=== PATIENT | female | born 1960 | race Caucasian/White ===

== ENCOUNTER 2016-10-22 08:35 | Day surgery (SDC) | payer OTHER ==
[2016-10-22] VITALS (11 sets, daily range): BP systolic 114–158; BP diastolic 63–70; PULSE 73–88; RESP 15–18; Ht 165.1 cm; Wt 74.9 kg
[~2016-10-22] VITALS: Ht 165.1 cm; Wt 74.9 kg
[2016-10-22] MEDS: SOD CHLORIDE 0.9% 1,000 ML IV SCH ×2 (06:00→19:20)
[~2016-10-22 08:35] MED LIST: CEFAZOLIN 1 GM INJ ONE; CEFAZOLIN 2 GM/50 ML (PMX) 50 ML IVPB SCH
[2016-10-22] MEDS ORDERED: PROPOFOL 0 ML ONE (12:09)
[2016-10-22] MEDS ORDERED: KETOROLAC 30 MG INJ ONE (12:10)
[2016-10-22] MEDS ORDERED: FENTAnyl 50 MCG/ML VIAL ONE ×3 (12:10→15:38)
[2016-10-22] MEDS ORDERED: MIDAZOLAM 1 MG/ML 2 ML INJ ONE (12:10)
[2016-10-22] MEDS ORDERED: ONDANSETRON 4 MG INJ ONE ×2 (12:10→16:00)
[2016-10-22 12:47] LABS: BASOPHIL # 0.1 10^3/ul (0.0-0.1); BASOPHILS % 0.7 % (0.0-2.0); EOSINOPHILS # 0.1 10^3/ul (0.0-0.5); EOSINOPHILS % 1.4 % (0.0-7.0); HEMATOCRIT 40.6 % (37.0-47.0); HEMOGLOBIN 13.9 g/dl (12.0-16.0); LYMPHOCYTES # 2.9 10^3/ul (0.8-2.9); LYMPHOCYTES % 32.6 % (15.0-51.0); MEAN CORPUSCULAR HGB CONC 34.2 g/dl (32.0-37.0); MEAN CORPUSCULAR VOLUME 87.7 fl (82.0-101.0); MEAN PLATELET VOLUME 10.8 fl (7.4-10.4); MONOCYTE # 0.5 10^3/ul (0.3-0.9); MONOCYTES % 5.7 % (0.0-11.0); NEUTROPHIL # 5.2 10^3/ul (1.6-7.5); NEUTROPHILS % 59.3 % (39.0-77.0); PLATELET COUNT 345 10^3/UL (140-415); RED BLOOD COUNT 4.63 10^6/ul (4.20-5.40); RED CELL DISTRIBUTION WIDTH 12.7 % (11.5-14.5); WHITE BLOOD COUNT 8.7 10^3/ul (4.8-10.8)
--- NOTE | 2016-10-22 12:54 | RADRPT ---
PROCEDURE: XR Chest. CLINICAL INDICATION: Breast cancer, preoperative TECHNIQUE: Single frontal view of the chest was obtained. COMPARISON: None FINDINGS: The heart is within normal limits. The thoracic aorta is calcified. The lungs are clear. There is no pleural effusion or pneumothorax. RPTAT: AA IMPRESSION: No acute disease. Calcified aorta consistent with atherosclerotic disease. .Raphael Goldsmith MD, MD Date Time Electronically viewed and signed by .Raphael Goldsmith MD, on 10/22/2016 12:54 .S/
[2016-10-22 12:59] LABS: INR 0.9; PROTIME 12.1 Sec (12.2-14.2); PT RATIO 0.9
[2016-10-22 13:00] LABS: PARTIAL THROMBOPLASTIN TIME 30.2 Sec (25.0-35.0)
[2016-10-22 13:37] LABS: CREATININE 0.42 mg/dl (0.44-1.00); POTASSIUM 3.8 mmol/L (3.5-5.1)
[2016-10-22 13:38] LABS: CALCIUM 9.7 mg/dl (8.4-10.2)
[2016-10-22] MEDS ORDERED: METF500T4 PO (13:53)
[2016-10-22] MEDS ORDERED: AMLO-145 PO (13:53)
[2016-10-22] MEDS ORDERED: SYN75 PO (13:53)
[2016-10-22] MEDS ORDERED: LISI1TAB8 PO (13:53)
[2016-10-22] MEDS ORDERED: SIMV5TAB50 PO (13:54)
[2016-10-22] MEDS ORDERED: PROPOFOL 60 ML ONE (14:49)
[2016-10-22] MEDS ORDERED: LIDOCAINE 2% (SDV) 5 ML INJ ONE (14:49)
[2016-10-22] MEDS ORDERED: ISOSULFAN BLUE 1% 5 ML INJ SC ONE (14:53)
[2016-10-22] MEDS ORDERED: OXYCODONE/ACETAMINOPHEN (5/325) TAB PO PRN ×2 (15:00)
[2016-10-22] MEDS ORDERED: MEPERIDINE 25 MG INJ IV PRN (15:00)
[2016-10-22] MEDS ORDERED: HYDROmorphONE (0.2 MG/ML) 10ML SYG IV PRN ×3 (15:00)
[2016-10-22] MEDS ORDERED: LABETALOL HCL 20MG INJ IV PRN (15:00)
[2016-10-22] MEDS ORDERED: FENTAnyl 50 MCG/ML VIAL IV PRN ×3 (15:00)
[2016-10-22] MEDS ORDERED: ONDANSETRON 4 MG INJ IV PRN ×2 (15:00→16:30)
[2016-10-22] MEDS ORDERED: DEXAMETHASONE 4 MG/ML 1 ML INJ ONE (15:20)
[2016-10-22] MEDS ORDERED: PROPOFOL 20 ML ONE ×2 (15:59)
[2016-10-22] MEDS ORDERED: D5W-0.45 NACL + KCL 20 MEQ 1,000 ML IV SCH (16:15)
[2016-10-22] MEDS ORDERED: ACETAMINOPHEN 1000MG/100ML IV 100 ML IVPB PRN (16:30)
[2016-10-22] MEDS ORDERED: morphine 2 MG INJ IV PRN (16:30)
--- NOTE | 2016-10-22 16:39 | OPR ---
DATE OF OPERATION: 10/22/2016 PREOPERATIVE DIAGNOSIS: Invasive cancer, right breast. POSTOPERATIVE DIAGNOSIS: Invasive cancer, right breast. OPERATION PERFORMED: Needle-directed right partial mastectomy and axillary dissection utilizing sen tinel lymph node technique. ANESTHESIA: General. ANESTHESIOLOGIST: Dr. Rico. SURGEON: Chandu Sandoval MD MANAGER RESPIRATORY CARE: Nathan Enrique MD INDICATIONS FOR PROCEDURE: The patient is a 55-year-old female who underwent surveillance mammograp hy and was found to have a suspicious lesion in the right breast. Subsequent core biopsy confirmed an invasive cancer. She was counseled as to risks versus benefit of needle-directed partial mastec rama and axillary dissection utilizing sentinel lymph node technique. She consented and was schedul ed for surgery. DESCRIPTION OF PROCEDURE: The patient was brought to the operating theater, placed under general an esthesia. The right breast was prepped and draped in usual sterile fashion. Approximately 4 mL of 1% Lymphazurin blue dye were then injected peritumorally. The breast was gently massaged for 12 min utes. At this point, a 3 cm incision was made in the right axillary hairline. Subcutaneous tissue was dissected with cautery down through the clavipectoral fascia. A dye-stained lymphatic was ident ified and it was migrating towards what appeared to be a very large lymph node. There were addition al enlarged lymph nodes in this area. Therefore, Dr. Sandoval made the decision to perform a level 1 d issection with blunt dissection along the chest wall. The long thoracic nerve was identified and ke pt out of harm's way. More superiorly, the axillary vein and thoracodorsal neurovascular bundles we re identified and kept out of harm's way. The enlarged lymph nodes, an additional level 1 and some level 2 axillary nodes were then meticulously resected using LigaSure device. They were sent for pe rmanent pathologic analysis. The wound was irrigated. Minimal bleeding was controlled with cautery . The skin was then reapproximated with 4-0 Vicryl suture in subcuticular fashion. Attention was then directed towards performing the partial mastectomy. The previously placed locali zation wire was at approximately the 8 o'clock location. There appeared to be small amount of skin dimpling around this area and therefore Dr. Sandoval made decision to perform an elliptical incision in cluding this portion of skin and the wire. This was done with 15 blade scalpel. Subcutaneous tissu e was dissected with cautery. The skin edges were elevated with skin hooks. Wide circumferential d issection of the tissue associated with the wire, taking great care to ensure adequate margin then t ook place with cautery. Specimen was elevated, transected, oriented, and sent for radiographic conf irmation of capture. Capture was confirmed. The wound was irrigated. Minimal bleeding was control led with cautery, and the skin was then reapproximated with 4-0 Vicryl suture in subcuticular fashio n. Benzoin and Steri-Strips were applied to both incisions. The patient tolerated the procedure we ll. Estimated blood loss was approximately 30 mL. There were no complications. The patient was tr ansported in stable condition to the recovery room where circumferential compression dressing was ap plied. Dictated By: CHANDU MOSELEY/LEIGH Conf#: [id number] DID#: [id number]
[2016-10-23] VITALS: BP 126/71; PULSE 88; RESP 16
[2016-10-23 04:00] VITALS: BP 128/74; PULSE 85; RESP 16
[2016-10-23] MEDS ORDERED: LEVOTHYROXINE 75 MCG TAB PO SCH (11:00)
[2016-10-23] MEDS ORDERED: AMLODIPINE 5 MG TAB PO SCH (11:00)
[2016-10-23] MEDS ORDERED: DEXTROSE 50% 50 ML SYRINGE IV PRN ×2 (11:00)
[2016-10-23] MEDS ORDERED: GLUCOSE GEL 15 GRAM TUBE BUCCAL PRN (11:00)
[2016-10-23] MEDS ORDERED: HYDROCHLOROTHIAZIDE 25 MG TAB PO SCH (11:00)
[2016-10-23] MEDS ORDERED: GLUCOSE GEL 15 GRAM TUBE PO PRN ×2 (11:00)
[2016-10-23] MEDS ORDERED: LISINOPRIL 20 MG TAB PO SCH (11:00)
[2016-10-23] MEDS ORDERED: GLUCAGON 1 MG INJ IM PRN (11:00)
--- NOTE | 2016-10-23 11:08 | PDOCDIS ---
Discharge Instructions CONDITION Patient Condition: Stable HOME CARE INSTRUCTIONS: Special Diet: Carbohydrate controlled diet ACTIVITY: Activity Restrictions Comment: instructions per Dr Sandoval FOLLOW UP/APPOINTMENTS Appointments Follow up with PCP within 1 to 2 weeks Follow up with Dr Sandoval per Dr Sandoval's instructions ANABELLA drain care per NICKOLAS Cuevas Oct 23, 2016 11:08
--- NOTE | 2016-10-23 11:21 | PN ---
Date/Time of Note Date/Time of Note DATE: 10/23/16 TIME: 11:10 Assessment/Plan VTE Prophylaxis VTE Prophylaxis Intervention: SCD's Lines/Catheters IV Catheter Type (from Nrsg): Peripheral IV Assessment/Plan Assessment/Plan 55 yo female with: 1. S/p right breast biopsy: ANABELLA drain to remain in place x 2 weeks per patient Ok to d/c home per Dr Klaus soni and f/u with Dr Jaime Holliday prn pain 2. Diabetes Mellitus: resume home meds 3. Hypothyroidism: resume Synthroid 4. Hypertension: resume Home meds PPX: SCDs/ambulatory and tolerating po Disposition: d/c home with ANABELLA drain and f/u with PCP and Surgeon Subjective 24 Hr Interval Summary Free Text/Dictation Patient doing well If OK with surgery OK to d/c home Exam/Review of Systems Vital Signs Vitals Vital Signs Date Time Temp Pulse Resp B/P Pulse Ox O2 Delivery O2 Flow Rate FiO2 10/23/16 04:00 98.1 85 16 128/74 99 Room Air Intake and Output 10/22/16 10/22/16 10/23/16 15:00 23:00 07:00 Intake Total 900 ml 1200 ml Output Total 56 ml 840 ml Balance 844 ml 360 ml Exam Constitutional: alert, oriented, well developed Respiratory: clear to auscultation, normal air movement, other (ANABELLA drain to right breast ) Cardiovascular: nl pulses, regular rate and rhythm Gastrointestinal: non-tender, soft Musculoskeletal: nl extremities to inspection Extremities: normal pulses, other (no edema, clubbign or cyanosis ) Neurological: GRADES 1 6 TUTOR II-XII intact, nl mental status, nl speech, nl strength Results Result Diagram: 10/22/16 1228 10/22/16 1228 Results 24 hrs Laboratory Tests Test 10/22/16 12:28 10/22/16 21:57 10/23/16 09:19 Activated Partial Thromboplast Time 30.2 Anion Gap 17 H Basophils # 0.1 Basophils % 0.7 Blood Urea Nitrogen 10 Calcium Level 9.7 Carbon Dioxide Level 30 Chloride Level 99 Creatinine 0.42 L Differential Comment N Eosinophils # 0.1 Eosinophils % 1.4 Glucose Level 113 Hematocrit 40.6 Hemoglobin 13.9 INR International Normalized Ratio 0.90 Lymphocytes # 2.9 Lymphocytes % 32.6 Mean Corpuscular Hemoglobin 30.0 Mean Corpuscular Hemoglobin Concent 34.2 Mean Corpuscular Volume 87.7 Mean Platelet Volume 10.8 H Monocytes # 0.5 Monocytes % 5.7 Neutrophils # 5.2 Neutrophils % 59.3 Nucleated Red Blood Cells # 0.0 Nucleated Red Blood Cells % 0.0 Platelet Count 345 Potassium Level 3.8 Prothrombin Time 12.1 L Prothrombin Time Ratio 0.9 Red Blood Count 4.63 Red Cell Distribution Width 12.7 Sodium Level 142 White Blood Count 8.7 Bedside Glucose 293 H 249 H Medications Medications Current Medications Cefazolin Sodium/ Dextrose 50 ml @ 100 mls/hr PREOP IVPB ; Start 10/22/16 at 06: 00 Sodium Chloride (NS) 1,000 ml @ 75 mls/hr [id number] IV ; Start 10/22/16 at 06:00 Ondansetron HCl 4 mg 4 mg Q6H PRN IV NAUSEA AND/OR VOMITING; Start 10/22/16 at 16:30 Potassium Chloride/Dextrose/ Sod Cl (D5-1/2ns + KCl 20 Meq) 1,000 ml @ 125 mls/ hr Q8H IV ; Start 10/22/16 at 16:15 Morphine Sulfate 2 mg 2 mg Q1H PRN IV PAIN; Start 10/22/16 at 16:30 Acetaminophen (Ofirmev 1000mg/ 100ml Iv) 100 ml @ 400 mls/hr Q6H PRN IVPB PAIN ; Start 10/22/16 at 16:30 Amlodipine Besylate (Norvasc) 5 mg DAILY PO ; Start 10/23/16 at 11:00 Miscellaneous Information 10 mg QHS PO ; Start 10/23/16 at 21:00; Status UNV Miscellaneous Information 1 ea NOTE XX ; Start 10/23/16 at 11:00 Glucose (Glutose) 15 gm Q15M PRN PO DECREASED GLUCOSE; Start 10/23/16 at 11:00 Glucose (Glutose) 22.5 gm Q15M PRN PO DECREASED GLUCOSE; Start 10/23/16 at 11: 00 Dextrose (D50w Syringe) 25 ml Q15M PRN IV DECREASED GLUCOSE; Start 10/23/16 at 11:00 Dextrose (D50w Syringe) 50 ml Q15M PRN IV DECREASED GLUCOSE; Start 10/23/16 at 11:00 Glucagon (Glucagen) 1 mg Q15M PRN IM DECREASED GLUCOSE; Start 10/23/16 at 11:00 Glucose (Glutose) 15 gm Q15M PRN BUCCAL DECREASED GLUCOSE; Start 10/23/16 at 11 :00 Lisinopril (Zestril) 20 mg BID PO ; Start 10/23/16 at 11:00 Hydrochlorothiazide (Hydrochlorothiazide) 25 mg BID PO ; Start 10/23/16 at 11:00 NICKOLAS PERAZA Oct 23, 2016 11:20
[2016-10-23] MEDS ORDERED: HYDR-906 PO (11:23)
--- NOTE | 2016-10-23 11:52 | PN ---
DATE: 10/23/2016 SUBJECTIVE: Postop day #1. PROCEDURE: Right partial mastectomy with axillary dissection. Patient is doing fine. No complaint of pain. OBJECTIVE: VITAL SIGNS: Stable, 98.1, 85, 16, 128/74, 99% on room air. Román-Hammer has drained 60 mL seros anguineous fluid over 24 hours. ASSESSMENT: Status post right partial mastectomy with axillary. The patient is stable. No pain. 1. The patient can be discharged home with the Román-Hammer and the nurses are going to teach the patient how to drain it and record the amount of drainage. 2. For followup, the patient should call Dr. Sandoval' office and make an appointment for followup. Dictated By: TIFF MEDINA/LEIGH Conf#: [id number] DID#: [id number]
--- NOTE | 2016-10-23 17:16 | RADRPT ---
Vent Rate: 63 bpm RR Interval: 0 msec LA Interval: 180 msec QRS Duration: 100 msec QT Interval: 434 msec QTC Interval: 444 msec P-R-T [place]: 49 - 52 - 55 degrees Normal sinus rhythm Normal ECG Electronically Signed By: Sridhar Gould [id number]
[2016-10-23] MEDS ORDERED: metFORMIN 500 MG TAB PO SCH (17:50)
[2016-10-23] MEDS ORDERED: NON-FORMULARY/PATIENT OWN MED (Lisinopril/Hydrochlorothiazide (Lisinopril-Hctz 20-25 mg Ta PO SCH (21:00)
[2016-10-23] MEDS ORDERED: SIMVASTATIN 10 MG PO SCH (21:00)
[2016-10-23] MEDS ORDERED: ATORVASTATIN 10 MG TAB PO SCH (21:00)
== END 2016-10-23 13:25 | disposition home or self-care (01) ==
LOC: SDS 08:35 → MS2 18:00 → SDS 10-23 13:25
PROVIDERS: ATTEND Surgery Surgical Oncology
DX: D05.11 Intraductal carcinoma in situ of right breast (principal); I10 Essential (primary) hypertension; E11.9 Type 2 diabetes mellitus without complications
CPT/HCPCS: 19301; 38500; 38792; 71010; 80048; 82962; 85025; 85610; 85730; 88307; 93005; J0690; J1100; J1170; J2270; J2405; J3010; J7030; Q9968; J1885; J2250

== ENCOUNTER 2016-11-07 10:44 | Emergency (ER) | payer OTHER ==
[~2016-11-07] VITALS: Ht 162.6 cm; Wt 74.7 kg
[~2016-11-07 10:44] MED LIST changes: +AMLO-145 PO; -CEFAZOLIN 1 GM INJ ONE; -CEFAZOLIN 2 GM/50 ML (PMX) 50 ML IVPB SCH; +HYDR-906 PO; +LISI1TAB8 PO; +METF500T4 PO; +SIMV5TAB50 PO; +SYN75 PO
[2016-11-07 10:47] VITALS: Ht 162.6 cm; Wt 74.7 kg
[2016-11-07] MEDS ORDERED: CEPH-443 PO (15:16)
--- NOTE | 2016-11-07 15:53 | ERD ---
ER Documentation Chief Complaint Date/Time DATE: 11/07/16 TIME: 15:44 Chief Complaint pt bib with slight drainage to left breast s/p lumpectomy 2 wks ago HPI This is a 55-year-old female presenting to emergency department for drainage from surgical site starting today. Patient states she had a right breast lumpectomy on 10/22/2016. Patient states she had ANABELLA drain placed at that time and drain was recently removed about 4 days ago. Patient then began laying on her right side last night and this morning while taking a shower noticed some bright red bleeding from area of surgical site. No fevers or chills. No pain. Patient recently saw her surgeon her surgeon, Dr. Sandoval, last week. no surrounding erythema, warmth or foul smelling discharge. No numbness/tingling to right arm or around surgical site. ROS All systems reviewed and are negative except as per history of present illness. Medications Home Meds Active Scripts Cephalexin* (Keflex*) 500 Mg Capsule, 500 MG PO QID for 5 Days, CAP Prov:JOANNE VANESSA NP 11/07/16 Hydrocodone/Acetaminophen ([place] 5-325 Tablet) 1 Each Tablet, 1 EACH PO Q8 Y for PAIN, #20 TAB Prov:NICKOLAS PERAZA 10/23/16 Reported Medications Simvastatin* (Simvastatin*) 5 Mg Tablet, 10 MG PO QHS, #30 TAB 10/22/16 Levothyroxine Sodium* (Synthroid*) 75 Mcg Tablet, 75 MCG PO BEFORE BREAKFAST, # 30 TAB 10/22/16 Metformin* (Glucophage*) 500 Mg Tab, 500 MG PO BID WITH MEALS, #30 TAB 10/22/16 Amlodipine Besylate* (Amlodipine Besylate*) 5 Mg Tablet, 5 MG PO DAILY, #30 TAB 10/22/16 Lisinopril/Hydrochlorothiazide (Lisinopril-Hctz 20-25 mg Tab) 1 Each Tablet, 1 EACH PO BID, TAB 10/22/16 Allergies Allergies: Coded Allergies: No Known Allergy (Unverified , 10/21/16) PMhx/Soc History of Surgery: Yes (RT BREAST LUMPECTOMY, GALBLADDER, APPY, LIMPH) Anesthesia Reaction: No Hx Neurological Disorder: No Hx Respiratory Disorders: No Hx Cardiac Disorders: Yes (HTN, HYPERLIPIDEMIA) Hx Psychiatric Problems: No Hx Miscellaneous Medical Probl: Yes (THYROID, DM TYPE II) Hx Alcohol Use: No Hx Substance Use: No Hx Tobacco Use: No Smoking Status: Never smoker Physical Exam Vitals Vital Signs Date Time Temp Pulse Resp B/P Pulse Ox O2 Delivery O2 Flow Rate FiO2 11/07/16 10:47 98.3 76 18 143/77 97 Physical Exam Const: Alert, [id number] Head: Atraumatic Eyes: Normal Conjunctiva ENT: Normal External Ears, Nose and Mouth. Neck: Full range of motion..~ No meningismus. Resp: Clear to auscultation bilaterally Cardio: Regular rate and rhythm, no murmurs Abd: Soft, non tender, non distended. Normal bowel sounds Skin: surgical incision to right breast at 7 o'clock region surrounding erythema, warmth with no or foul-smelling drainage. Areas of induration underneath surgical site. No fluctuance Back: No midline or flank tenderness Ext: No cyanosis, or edema Neur: Awake and alert Psych: Normal Mood and Affect Procedures/MDM ED COURSE: The patient was stable throughout ED course. I kept the patient and/or family informed of laboratory and diagnostic imaging results throughout the ED course. Imaging Patient Name Mckenzie Pelletier Study Date 11/07/2016 1:26 PM Patient 1960 Accession No. [id number] Referring Physician Joanne Vanessa CLINICAL INDICATION: Right breast pain and tenderness. Fibrocystic disease of breast. Status post right lumpectomy for breast cancer. TECHNIQUE: Right whole, 4 quadrant breast and retroareolar, and axillary sonography was performed. COMPARISON: None. FINDINGS: No solid or suspicious masses. No malignant adenopathy. No cysts are present. There are post lumpectomy changes to the right breast and right axilla. There are benign, 2 cm postsurgical seroma as in the right breast and right axilla. No abscess, or hematoma. IMPRESSION: No sonographic evidence of malignancy. Post lumpectomy changes to the right breast and right axilla; benign, 2 cm postsurgical seromas in the right breast and right axilla. ACR BIRADS 2: BENIGN. Routine annual follow up is recommended. RPTAT: EE 55-year-old female MDM: Presents emergency department for wound check of left breast. Patient had left breast lumpectomy about 2 weeks ago on 10/22/2016 by . Patient states she recently had her ANABELLA drain removed and started sleeping on her right side. This morning she noticed small amount of bright red bleeding from surgical site. No surrounding erythema, warmth or foul-smelling drainage. There is small area of induration directly underneath surgical site. An ultrasound was performed. Ultrasound reviewed by radiologist shows no sonographic evidence of malignancy. Postlumpectomy changes to the right breast and right axilla. Benign 2 cm postsurgical seromas in the right breast and right axilla. Discussed findings with Dr. Trimble. We agree that patient is appropriate for outpatient management and patient is encouraged to use warm compresses 20 minutes 3 times per day. Patient will also be started on Keflex to prevent abscess or cellulitis. Low suspicion for cellulitis or abscess. Patient's diagnosis seroma. Patient is appropriate for outpatient management will be given prescription for Keflex. Patient instructed to follow-up with surgeon Dr. Sandoval in the next 24- 48 hours for reassessment and additional management. Return to ED for any high fever, chest pain, difficulty breathing, shortness breath, wheezing, vomiting, diarrhea, abdominal pain or any new or worsening symptoms. Patient verbalizes understanding. All questions answered at discharge. Departure Diagnosis: Primary Impression: Seroma of breast Condition: Stable Patient Instructions: Post Op Wound Check, Pain Additional Instructions: Follow-up with surgeon Dr. Sandoval in the next 24-48 hours for reassessment. Return to ED for any high fever, chest pain, difficulty breathing, shortness breath, wheezing, vomiting, diarrhea, abdominal pain or any new or worsening symptoms. JOANNE VANESSA NP Nov 07, 2016 15:53
--- NOTE | 2016-11-07 19:15 | RADRPT ---
PROCEDURE: Right breast ultrasound. CLINICAL INDICATION: Right breast pain and tenderness. Fibrocystic disease of breast. Status post right lumpectomy for breast cancer. TECHNIQUE: Right whole, 4 quadrant breast and retroareolar, and axillary sonography was performed. COMPARISON: None. FINDINGS: No solid or suspicious masses. No malignant adenopathy. No cysts are present. There are post lumpectomy changes to the right breast and right axilla. There are benign, 2 cm post surgical seroma as in the right breast and right axilla. No abscess, or hematoma. IMPRESSION: No sonographic evidence of malignancy. Post lumpectomy changes to the right breast and right axilla; benign, 2 cm postsurgical seromas in the right breast and right axilla. ACR BIRADS 2: BENIGN. Routine annual follow up is recommended. RPTAT: EE .Anne Martinez MD, MD Date Time Electronically viewed and signed by .Anne Martinez MD, on 11/07/2016 14:15 .F/
== END 2016-11-07 15:40 | disposition home or self-care (01) ==
LOC: FTE 10:44
DX: L76.34 Postprocedural seroma of skin and subcutaneous tissue following other procedure (principal); E11.9 Type 2 diabetes mellitus without complications; I10 Essential (primary) hypertension; Y82.8 Other medical devices associated with adverse incidents; Z79.84 Long term (current) use of oral hypoglycemic drugs
CPT/HCPCS: 76536

== ENCOUNTER 2017-07-23 11:01 | Inpatient (IN) | payer OTHER ==
[2017-07-23] VITALS (21 sets, daily range): BP systolic 128–199; BP diastolic 58–80; PULSE 66–127; RESP 9–20; Ht 165.1 cm; Wt 72.2 kg
[~2017-07-23] VITALS: Ht 165.1 cm; Wt 72.2 kg
[~2017-07-23 11:01] MED LIST changes: +CEFAZOLIN 2 GM/50 ML (PMX) 50 ML IVPB SCH; +CEPH-443 PO; +EPHEDrine SULFATE 50 MG/5 ML SYG ONE
[2017-07-23] MEDS ORDERED: SIMV10TA PO (11:29)
[2017-07-23] MEDS ORDERED: LETR2.5T PO (11:30)
--- NOTE | 2017-07-23 11:50 | RADRPT ---
PROCEDURE: XR Chest. CLINICAL INDICATION: Preop TECHNIQUE: A single AP view of the chest was obtained. COMPARISON: Chest x-ray dated 10/22/2016 FINDINGS: No focal airspace opacification, pleural effusion or pneumothorax is seen. The cardiomediastinal si lhouette is within normal limits for size. Calcifications are seen within the aortic arch. The osse ous structures are unremarkable. IMPRESSION: 1. No radiographic evidence of acute cardiopulmonary disease. No significant interval change. 2. Aortic atherosclerosis. RPTAT: HH .Cristela Watt MD, MD Date Time Electronically viewed and signed by .Cristela Watt MD, MD on 07/23/2017 11:49 .G/
[2017-07-23 12:45] LABS: BASOPHIL # 0.1 10^3/ul (0.0-0.1); BASOPHILS % 0.7 % (0.0-2.0); EOSINOPHILS # 0.1 10^3/ul (0.0-0.5); EOSINOPHILS % 1.3 % (0.0-7.0); HEMATOCRIT 35.9 % (37.0-47.0); HEMOGLOBIN 12.7 g/dl (12.0-16.0); LYMPHOCYTES # 1.9 10^3/ul (0.8-2.9); LYMPHOCYTES % 25.4 % (15.0-51.0); MEAN CORPUSCULAR HEMOGLOBIN 30.6 pg (29.0-33.0); MEAN CORPUSCULAR HGB CONC 35.4 g/dl (32.0-37.0); MEAN CORPUSCULAR VOLUME 86.5 fl (82.0-101.0); MEAN PLATELET VOLUME 10.8 fl (7.4-10.4); MONOCYTE # 0.6 10^3/ul (0.3-0.9); MONOCYTES % 8.1 % (0.0-11.0); NEUTROPHIL # 4.8 10^3/ul (1.6-7.5); NEUTROPHILS % 64.2 % (39.0-77.0); PLATELET COUNT 295 10^3/UL (140-415); RED BLOOD COUNT 4.15 10^6/ul (4.20-5.40); RED CELL DISTRIBUTION WIDTH 12.1 % (11.5-14.5); WHITE BLOOD COUNT 7.5 10^3/ul (4.8-10.8)
[2017-07-23 13:01] LABS: INR 0.89; PT RATIO 0.9
[2017-07-23 13:03] LABS: ALBUMIN 4.3 g/dl (3.3-4.9); ALBUMIN/GLOBULIN RATIO 1.04; CALCIUM 9.8 mg/dl (8.4-10.2); CREATININE 0.43 mg/dl (0.44-1.00); POTASSIUM 3.4 mmol/L (3.5-5.1); TOTAL PROTEIN 8.4 g/dl (6.1-8.1)
[2017-07-23 14:01] LABS: PARTIAL THROMBOPLASTIN TIME 29.2 Sec (25.0-35.0)
[2017-07-23] MEDS ORDERED: METOCLOPRAMIDE 10 MG INJ ONE (14:53)
[2017-07-23] MEDS ORDERED: ONDANSETRON 4 MG INJ ONE (14:53)
[2017-07-23] MEDS ORDERED: PROPOFOL 20 ML ONE (14:53)
[2017-07-23] MEDS ORDERED: CEFAZOLIN 1 GM INJ ONE (14:53)
[2017-07-23] MEDS ORDERED: MIDAZOLAM 1 MG/ML 2 ML INJ ONE (14:53)
[2017-07-23] MEDS ORDERED: HYDROmorphONE 2 MG/ML SYG ONE (14:53)
[2017-07-23] MEDS ORDERED: NEOSTIGMINE 3 MG/3 ML SYRINGE ONE (16:30)
[2017-07-23] MEDS ORDERED: GLYCOPYRROLATE 0.4 MG INJ ONE (16:30)
[2017-07-23] MEDS ORDERED: ROCURONIUM 50 MG INJ ONE (16:30)
--- NOTE | 2017-07-23 16:46 | SIPON ---
Date/Time of Note Date/Time of Note DATE: 07/23/17 TIME: 16:45 Operative Report Preoperative Diagnosis Invasive cancer left breast need for bilateral mastectomy Postoperative Diagnosis Same Operation/Procedure Performed Left modified radical mastectomy and right simple mastectomy Surgeon see signature line painter assistant Dr Enrique Second assist: MAXWELL SCALES MD Anesthesia: general Estimated blood loss: 250 - 300 ml's Transfusion Required none Specimen Left breast and axillary contents and right breast with additional inferior medial tissue from the right breast Grafts/Implants none Complications none JEFFREY PIERRE MD Jul 23, 2017 16:46
[2017-07-23] MEDS ORDERED: LABETALOL HCL 20MG INJ ONE (16:59)
[2017-07-23] MEDS ORDERED: HYDROmorphONE (0.2 MG/ML) 10ML SYG IV PRN ×3 (17:00)
[2017-07-23] MEDS ORDERED: DIPHENHYDRAMINE 50 MG INJ IV PRN (17:00)
[2017-07-23] MEDS ORDERED: LABETALOL HCL 20MG INJ IV PRN (17:00)
[2017-07-23] MEDS ORDERED: ONDANSETRON 4 MG INJ IV PRN (17:00)
[2017-07-23] MEDS ORDERED: MEPERIDINE 25 MG INJ IV PRN (17:00)
[2017-07-23] MEDS ORDERED: hydrALAzine 20 MG INJ IV PRN (17:00)
[2017-07-23] MEDS ORDERED: morphine 2 MG INJ IV PRN (17:00)
[2017-07-23] MEDS ORDERED: D5W-0.45 NACL + KCL 20 MEQ 1,000 ML IV SCH (17:00)
[2017-07-23] MEDS ORDERED: ACETAMINOPHEN 1000MG/100ML IV 100 ML IVPB PRN (17:00)
[2017-07-23] MEDS: ACCU-CHEK XX SCH ×2 (17:30→21:00)
[2017-07-23] MEDS ORDERED: GLUCOSE GEL 15 GRAM TUBE PO PRN ×4 (17:30→20:30)
[2017-07-23] MEDS ORDERED: GLUCAGON 1 MG INJ IM PRN ×2 (17:30→20:30)
[2017-07-23] MEDS ORDERED: DEXTROSE 50% 50 ML SYRINGE IV PRN ×4 (17:30→20:30)
[2017-07-23] MEDS ORDERED: GLUCOSE GEL 15 GRAM TUBE BUCCAL PRN ×2 (17:30→20:30)
--- NOTE | 2017-07-23 19:35 | OPR ---
DATE OF OPERATION: 07/23/2017 PREOPERATIVE DIAGNOSIS: History of right breast cancer and recent diagnosis of left breast cancer a nd need for bilateral mastectomy. POSTOPERATIVE DIAGNOSIS: History of right breast cancer and recent diagnosis of left breast cancer and need for bilateral mastectomy. OPERATION PERFORMED: Left modified radical mastectomy and right simple mastectomy. ANESTHESIA: General. ANESTHESIOLOGIST: Dr. Barton. SURGEON: Chandu Sandoval MD PRODUCTION STAFF WORKER: Dr. Nathan Palm and Dr. Maxwell Dutton. INDICATIONS FOR PROCEDURE: The patient is an unfortunate 56-year-old female who approximately a yea r and half ago was treated for invasive cancer of her right breast. She successfully completed that treatment with breast conservation surgery followed by radiation, when she was diagnosed with invas scarlett cancer of her left breast. Based on the fact that she had already gone through one cancer treat ment, she was not interested in any further attempts at breast conservation. She requested left mod ified radical mastectomy and right simple mastectomy. She consented and was scheduled for surgery. DESCRIPTION OF PROCEDURE: The patient was brought to the operating theater, placed under general en dotracheal tube anesthesia. The breast and axillary regions were prepped and draped bilaterally. P lanned elliptical incisions were made on both breasts in an elliptical fashion around the nipple are olar complex encompassing a portion of the breast skin. Attention was first directed to the left si de. The incision was carried out with 15 blade scalpel. Subcutaneous tissue was dissected with cau sabine. Skin edges were elevated with Allis Richard clamps and sequential skin flaps were created using cautery, first superiorly to the clavicle, then medially to the sternal border, inferiorly to the i nframammary fold, and then laterally until the latissimus dorsi muscle was identified throughout its course. Mastectomy then proceeded from medial to lateral using cautery. At the border of the pect oralis major muscle, the pectoralis minor muscle was identified. Clavipectoral fascia was incised w ith blunt dissection along the chest wall. The long thoracic nerve was identified and kept out of h arm's way. More superiorly, the axillary vein was identified and dissected from medial to lateral. The thoracodorsal neurovascular bundle was then identified in its usual location and dissected thro ughout its course. Node bearing tissue between the long thoracic nerve and thoracodorsal nerve was meticulously harvested using the LigaSure device. Final connective tissue attachments to the latiss imus dorsi muscle were then transected with cautery. Specimen was oriented and sent for permanent p athologic analysis. The wound cavity was then irrigated. Minimal bleeding was controlled with caut lacey. Two #10 flat Román-Hammer drains were then brought through the left mid axillary line, one wa s cut to size and laid within the axilla, the other was cut to size and laid over the pectoralis oscar or muscle. Both drains were secured in place with 2-0 nylon sutures and the skin was then reapproxi mated with skin daria. Attention was then directed to the right side. The elliptical incision was carried out with 15 blad e scalpel. Subcutaneous tissue was dissected with cautery. The skin edges were elevated with Allis [place] clamps and sequential skin flaps were created using cautery, first superiorly to the clavicle , then medially to the sternal border, inferiorly to the inframammary fold, and laterally until the latissimus dorsi muscle was identified throughout its course. Mastectomy then took place from media l to lateral using cautery. At the border of the pectoralis major muscle, the pectoralis minor musc le was identified and the residual axillary tail of Yasmany was resected. The specimen was removed, oriented and sent for permanent pathologic analysis. The wound was irrigated. Minimal bleeding was controlled with cautery. Two #10 flat Román-Hammer drains were then brought through the right mid axillary line. One was cut to size and laid within the axilla, the other was cut to size and laid over the pectoralis major muscle. Both drains were secured in place with 2-0 nylon sutures in stand bianka fashion. The skin incision was then reapproximated with skin daria. Patient tolerated the pr ocedure well. Total blood loss was approximately 300 mL. There were no complications and the patie nt was transported in stable condition to the recovery room, where circumferential compression dress ing was applied. Dictated By: CHANDU SANDOVAL MD TL/NTS Conf#: [id number] DID#: [id number] CC: NATHAN PALM MD; MAXWELL DUTTON MD;*End*
[2017-07-23] MEDS: LEVOTHYROXINE 75 MCG TAB PO SCH (20:30)
[2017-07-23] MEDS: LISINOPRIL 20 MG TAB PO SCH (21:00)
[2017-07-23] MEDS ORDERED: HYDROCHLOROTHIAZIDE 25 MG TAB PO SCH (21:00)
[2017-07-23] MEDS ORDERED: NON-FORMULARY/PATIENT OWN MED (Lisinopril/Hydrochlorothiazide (Lisinopril-Hctz 20-25 mg Ta PO SCH (21:00)
[2017-07-23] MEDS: ATORVASTATIN 10 MG TAB PO SCH (21:16)
[2017-07-23] MEDS: AMLODIPINE 5 MG TAB PO SCH (21:17)
[2017-07-23] MEDS: 1/2 NS + KCL 20 MEQ 1,000 ML IV SCH (22:06)
[2017-07-24 00:28] VITALS: BP 121/56; RESP 18
[2017-07-24 06:00] VITALS: BP 122/64; PULSE 78; RESP 18
[2017-07-24] MEDS: LEVOTHYROXINE 75 MCG TAB PO SCH (06:51)
[2017-07-24 06:57] VITALS: BP 135/68; PULSE 72; RESP 18
[2017-07-24] MEDS ORDERED: LEVOTHYROXINE 75 MCG TAB PO SCH (07:00)
[2017-07-24] MEDS: ACCU-CHEK XX SCH ×2 (07:20→11:10)
[2017-07-24 08:09] VITALS: BP 137/68; RESP 18
[2017-07-24] MEDS: metFORMIN 500 MG TAB PO SCH ×2 (08:41→17:40)
[2017-07-24] MEDS: LISINOPRIL 20 MG TAB PO SCH (08:42)
[2017-07-24] MEDS: AMLODIPINE 5 MG TAB PO SCH (08:43)
[2017-07-24] MEDS: 1/2 NS + KCL 20 MEQ 1,000 ML IV SCH ×2 (08:44→18:00)
[2017-07-24] MEDS: LETROZOLE 2.5 MG TAB PO SCH (08:47)
[2017-07-24] MEDS ORDERED: HYDROCHLOROTHIAZIDE 25 MG TAB PO SCH (09:00)
[2017-07-24 14:25] VITALS: BP 161/76; RESP 18
[2017-07-24] MEDS ORDERED: HYDROCHLOROTHIAZIDE 25 MG TAB PO STA (14:34)
[2017-07-24] MEDS ORDERED: LISINOPRIL 20 MG TAB PO STA (14:34)
--- NOTE | 2017-07-24 15:07 | RADRPT ---
Vent Rate: 68 bpm RR Interval: 0 msec [place] Interval: 194 msec QRS Duration: 98 msec QT Interval: 428 msec QTC Interval: 455 msec P-R-T [place]: 52 - 63 - 60 degrees Normal sinus rhythm Normal ECG No previous tracing available for comparison Electronically Signed By: Rich Mcdaniels [id number]
[2017-07-24 15:26] LABS: BASOPHIL # 0.1 10^3/ul (0.0-0.1); BASOPHILS % 0.7 % (0.0-2.0); EOSINOPHILS # 0.2 10^3/ul (0.0-0.5); EOSINOPHILS % 2.2 % (0.0-7.0); HEMATOCRIT 30.4 % (37.0-47.0); HEMOGLOBIN 10.7 g/dl (12.0-16.0); LYMPHOCYTES # 2.3 10^3/ul (0.8-2.9); LYMPHOCYTES % 23.8 % (15.0-51.0); MEAN CORPUSCULAR HEMOGLOBIN 30.7 pg (29.0-33.0); MEAN CORPUSCULAR HGB CONC 35.2 g/dl (32.0-37.0); MEAN CORPUSCULAR VOLUME 87.1 fl (82.0-101.0); MEAN PLATELET VOLUME 10.7 fl (7.4-10.4); MONOCYTES % 10.4 % (0.0-11.0); NEUTROPHIL # 6.1 10^3/ul (1.6-7.5); NEUTROPHILS % 62.6 % (39.0-77.0); PLATELET COUNT 264 10^3/UL (140-415); RED BLOOD COUNT 3.49 10^6/ul (4.20-5.40); RED CELL DISTRIBUTION WIDTH 12.2 % (11.5-14.5); WHITE BLOOD COUNT 9.8 10^3/ul (4.8-10.8)
--- NOTE | 2017-07-24 16:06 | PN ---
DATE: 07/24/2017 PROGRESS NOTE FOLLOWUP CHIEF COMPLAINT: Status post bilateral mastectomy, postop day #1. SUBJECTIVE: Complains of pain and also has fainted once today morning. Now, she feels okay, lying down in the bed. OBJECTIVE: VITAL SIGNS: Temperature 97.8, heart rate 80, respirations 18, blood pressure 161/76, saturation 98 % room air. LABORATORY DATA: Patient has 4 Román-Hammer drains, 2 on each side. The drainage totally has been 63 mL, 93 mL, 23 mL, and 135 mL, total from time of operation yesterday until today morning; the co raphael is bloody drainage. ABDOMEN: Soft. The patient can move both upper extremities, but it is slightly painful, so is not full range of motion. The POC blood sugar today has been ranging between 140 and 160. ASSESSMENT AND PLAN: This is a 56-year-old female, who had right cancer of the breast diagnosed in 10/2016, had partial mastectomy, later on with radiation, in June of this year was found to have l eft breast cancer as well, so patient underwent bilateral mastectomy yesterday. Postop is doing rel atively fine except that she had an episode of fainting today. The blood pressure now is high, is n ot low, and blood sugar has been okay, so the cause of fainting is not clear. The Román-Hammer pk ins are draining moderate amount. The color is bloody; it is not serosanguineous. Therefore, we ar e going to order a stat CBC on this patient, and also we are going to keep her at least overnight, and reevaluate tomorrow morning to see how she is doing in regards to drainage and the pain. Dictated By: TIFF PALM MD PS/NTS Conf#: [id number] DID#: [id number] CC: JEFFREY PIERRE MD;*EndCC*
[2017-07-24] MEDS: ACETAMINOPHEN 325 MG TAB PO SCH ×2 (16:40→21:00)
[2017-07-24] MEDS: INSULIN ASPART [NOVOLOG] 3 ML PEN SC SCH ×2 (17:43→21:00)
[2017-07-24 19:50] VITALS: BP 140/67; PULSE 74; RESP 18
[2017-07-24] MEDS: ATORVASTATIN 10 MG TAB PO SCH (21:00)
[2017-07-25 00:30] VITALS: BP 140/76; PULSE 64; RESP 18
[2017-07-25] MEDS: ACETAMINOPHEN 325 MG TAB PO SCH ×5 (00:30→16:30)
[2017-07-25 00:39] LABS: HEMATOCRIT 29.3 % (37.0-47.0); HEMOGLOBIN 10.1 g/dl (12.0-16.0)
[2017-07-25] MEDS: ACCU-CHEK XX SCH (02:00)
[2017-07-25] MEDS: 1/2 NS + KCL 20 MEQ 1,000 ML IV SCH ×2 (04:00→13:38)
[2017-07-25 06:00] VITALS: BP 152/76; PULSE 88; RESP 18
[2017-07-25] MEDS: LEVOTHYROXINE 75 MCG TAB PO SCH (06:29)
[2017-07-25 07:28] VITALS: BP 138/74; RESP 18
[2017-07-25] MEDS: INSULIN ASPART [NOVOLOG] 3 ML PEN SC SCH ×4 (07:50→21:00)
[2017-07-25] MEDS: AMLODIPINE 5 MG TAB PO SCH (08:54)
[2017-07-25] MEDS: metFORMIN 500 MG TAB PO SCH ×2 (08:57→17:33)
[2017-07-25] MEDS: LETROZOLE 2.5 MG TAB PO SCH (08:57)
[2017-07-25] MEDS: LISINOPRIL 20 MG TAB PO SCH (08:58)
[2017-07-25] MEDS: HYDROCHLOROTHIAZIDE 25 MG TAB PO SCH (08:58)
[2017-07-25 09:00] VITALS: BP 176/103; PULSE 88; RESP 16
[2017-07-25 11:50] LABS: HEMATOCRIT 31.4 % (37.0-47.0); HEMOGLOBIN 10.7 g/dl (12.0-16.0)
[2017-07-25 15:01] VITALS: BP 151/82; RESP 18
--- NOTE | 2017-07-25 16:21 | PN ---
DATE: 07/25/2017 SUBJECTIVE: Status post bilateral mastectomy postop day #2. Patient states that she experienced 1 episode of dizziness when she tried to get out of bed today sitting in the chair. No nausea, no vomiting. OBJECTIVE GENERAL: Awake, alert, sitting in the chair. VITAL SIGNS: Temperature maximum today 99.4, heart rate 88, respirations 18, blood pressure 138/74, saturation 95% room air. 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 POC glucose 119. Román-Hammer drainage in last 24 hours from 4 drains respectively has drained 83, 132, 40, 78 mL, total of 333 mL of drainage which has been semi- bloody. Abdomen is soft. ASSESSMENT AND PLAN: This is a 56-year-old female who had cancer of the right breast in 10/2016, who had partial mastectomy and radiotherapy who recently was found to have cancer of the left breast. Therefore, decision was made to proceed with bilateral mastectomy, which was done on 07/23/2017. 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 Considering that the patient had another episode of dizziness today, to make sure that the hemoglobin is going to be stable and the patient does not get any orthostatic hypotension, we will now watch her another day in the hospital. Hopefully by Wednesday, we are going to discharge her home with prescription for pain medication. Dictated By: TIFF MEDINA/LEIGH Conf#: [id number] DID#: [id number] LONNIE
--- NOTE | 2017-07-25 17:23 | PN ---
Date/Time of Note Date/Time of Note DATE: 07/25/17 TIME: 17:21 Assessment/Plan VTE Prophylaxis VTE Prophylaxis Intervention: SCD's Lines/Catheters IV Catheter Type (from Nrsg): Saline Lock Assessment/Plan Assessment/Plan [facility] 56yo woman who is two days s/p bilateral mastectomy after having recurrent breast cancer diagnosed in the contralateral left breast. Good improvement today, apart from some mild dizziness this morning. ANABELLA drains in place, with serosanguinous drainage. * Monitor drain output * [place] for pain relief. * Cathartic (Colace) to help with regularity. * Full-code * SCDs for DVT prophylaxis * Famotidine 20mg PO BID for stomach protection * Per Dr. Enrique, anticipate discharge tomorrow, with follow-up to Dr. Sandoval and her PCP in the next two weeks. Piyush Smith MD PhD [phone] Subjective 24 Hr Interval Summary Free Text/Dictation Feeling much better. Much less operative discomfort now. Still no stooling, but passing flatus from below. No nausea, and ate a good lunch today. She had eight family members in the room this afternoon. Exam/Review of Systems Vital Signs Vitals Vital Signs Date Time Temp Pulse Resp B/P Pulse Ox O2 Delivery O2 Flow Rate FiO2 07/25/17 15:01 81 18 151/82 98 07/25/17 09:00 Room Air 07/25/17 07:28 99.4 07/24/17 06:57 3.0 Intake and Output 07/24/17 07/24/17 07/25/17 15:00 23:00 07:00 Intake Total 900 ml 960 ml 480 ml Output Total 1485 ml 1098 ml Balance 900 ml -525 ml -618 ml Exam Gen: Friendly, comfortable-appearing CVS: Regular rhythm, normal rate, good peripheral perfusion Chest: Clear bilaterally. Bandages in place. Abd: Soft, non-tender, bowel sounds normal. Ext: No edema or active arthritis. Neuro: Alert, oriented, intact executive function and memory, appropriate affect. Cranial nerves, motor, and light touch sensation intact. Toes downgoing. Skin: No rash. Results Result Diagram: 07/25/17 1129 07/23/17 1215 Results 24 hrs Laboratory Tests Test 07/24/17 17:39 07/24/17 20:58 07/25/17 00:30 07/25/17 08:04 Bedside Glucose 151 150 114 Hemoglobin 10.1 L Hematocrit 29.3 L Test 07/25/17 11:29 07/25/17 12:28 07/25/17 17:16 Hemoglobin 10.7 L Hematocrit 31.4 L Bedside Glucose 119 132 Medications Medications Current Medications Ondansetron HCl (Zofran Inj) 4 mg Q6H PRN IV NAUSEA AND/OR VOMITING Last administered on 07/23/17 20:54; Admin Dose 4 MG; Start 07/23/17 at 17:00 Morphine Sulfate 2 mg 2 mg Q1H PRN IV PAIN Last administered on 07/23/17 21: 52; Admin Dose 2 MG; Start 07/23/17 at 17:00 Acetaminophen (Ofirmev 1000mg/ 100ml Iv) 100 ml @ 400 mls/hr Q6H PRN IVPB PAIN Last administered on 07/24/17 07:32; Admin Dose 400 MLS/HR; Start at 17:00 Amlodipine Besylate (Norvasc) 5 mg DAILY PO Last administered on 07/25/17 08: 54; Admin Dose 5 MG; Start 07/23/17 at 20:00 Letrozole (Femara) 2.5 mg DAILY PO Last administered on 07/25/17 08:57; Admin Dose 2.5 MG; Start 07/24/17 at 09:00 Atorvastatin Calcium (Lipitor) 10 mg DAILY@21 PO Last administered on 21:00; Admin Dose 10 MG; Start 07/23/17 at 21:00 Miscellaneous Information 1 ea NOTE XX ; Start 07/23/17 at 20:30 Glucose (Glutose) 15 gm Q15M PRN PO DECREASED GLUCOSE; Start 07/23/17 at 20:30 Glucose (Glutose) 22.5 gm Q15M PRN PO DECREASED GLUCOSE; Start 07/23/17 at 20: 30 Dextrose (D50w Syringe) 25 ml Q15M PRN IV DECREASED GLUCOSE; Start 07/23/17 at 20:30 Dextrose (D50w Syringe) 50 ml Q15M PRN IV DECREASED GLUCOSE; Start 07/23/17 at 20:30 Glucagon (Glucagen) 1 mg Q15M PRN IM DECREASED GLUCOSE; Start 07/23/17 at 20: 30 Glucose 15 gm 15 gm Q15M PRN BUCCAL DECREASED GLUCOSE; Start 07/23/17 at 20:30 Potassium Chloride/Sodium Chloride (1/2 NS + KCl 20 Meq) 1,000 ml @ 100 mls/hr Q10H IV Last administered on 07/24/17 08:44; Admin Dose 100 MLS/HR; Start at 22:00 Lisinopril (Zestril) 40 mg DAILY PO Last administered on 07/25/17 08:58; Admin Dose 40 MG; Start 07/25/17 at 09:00 Hydrochlorothiazide (Hydrochlorothiazide) 50 mg DAILY PO Last administered on 07/25/17 08:58; Admin Dose 50 MG; Start 07/25/17 at 09:00 Diagnostic Test (Pha) (Accu-Chek) 1 02 XX ; Start 07/25/17 at 02:00 CRYSTAL SMITH M.D. Jul 25, 2017 17:23
[2017-07-25 19:54] VITALS: BP 155/74; RESP 16
[2017-07-25] MEDS: ATORVASTATIN 10 MG TAB PO SCH (20:34)
[2017-07-25] MEDS ORDERED: ACETAMINOPHEN 325 MG TAB PO PRN (21:00)
[2017-07-25 23:29] LABS: HEMATOCRIT 30.6 % (37.0-47.0); HEMOGLOBIN 10.6 g/dl (12.0-16.0)
[2017-07-26] MEDS: ACCU-CHEK XX SCH (02:00)
[2017-07-26 02:25] VITALS: BP 136/71; RESP 16
[2017-07-26] MEDS: LEVOTHYROXINE 75 MCG TAB PO SCH (06:05)
[2017-07-26 07:48] VITALS: BP 192/112; PULSE 81; RESP 18
[2017-07-26 07:57] VITALS: BP 176/106
[2017-07-26] MEDS: INSULIN ASPART [NOVOLOG] 3 ML PEN SC SCH ×2 (09:14→12:59)
[2017-07-26] MEDS: LETROZOLE 2.5 MG TAB PO SCH (09:14)
[2017-07-26] MEDS: AMLODIPINE 5 MG TAB PO SCH (09:15)
[2017-07-26] MEDS: metFORMIN 500 MG TAB PO SCH (09:15)
[2017-07-26] MEDS: LISINOPRIL 20 MG TAB PO SCH (09:19)
[2017-07-26] MEDS: HYDROCHLOROTHIAZIDE 25 MG TAB PO SCH (09:20)
[2017-07-26] MEDS: 1/2 NS + KCL 20 MEQ 1,000 ML IV SCH ×2 (10:00)
[2017-07-26 10:03] VITALS: BP 175/102
[2017-07-26 10:37] VITALS: BP 142/74
--- NOTE | 2017-07-26 11:40 | PN ---
Date/Time of Note Date/Time of Note DATE: 07/26/17 TIME: 11:36 Assessment/Plan VTE Prophylaxis VTE Prophylaxis Intervention: SCD's Lines/Catheters IV Catheter Type (from Nrsg): Saline Lock Assessment/Plan Assessment/Plan 56yo woman: 1. S/p bilateral mastectomy after having recurrent breast cancer diagnosed in the contralateral left breast. POD#3 Patient remained stable Discharge home ANABELLA drains in place, patient to follow-up with Dr. Sandoval in 1-2 weeks [place] for pain control Agree with Colace while taking narcotics to avoid constipation. 2. Hypertension: Resume home medication, pain control. Prophylaxis: SCDs for DVT prophylaxis, Pepcid for GI prophylaxis Disposition: Discharge home today, follow-up with Dr. Sandoval in 1-2 weeks and primary care physician and within 1 week Subjective 24 Hr Interval Summary Free Text/Dictation Patient doing well, she will be discharged home today, follow-up with Dr. Sandoval. Also follow-up with primary care physician regarding hypertension. Exam/Review of Systems Vital Signs Vitals Vital Signs Date Time Temp Pulse Resp B/P Pulse Ox O2 Delivery O2 Flow Rate FiO2 07/26/17 10:37 142/74 07/26/17 07:48 98.2 81 18 100 Room Air 07/24/17 06:57 3.0 Intake and Output 07/25/17 07/25/17 07/26/17 14:59 22:59 06:59 Intake Total 950 ml 400 ml Output Total 115 ml 850 ml 95 ml Balance -115 ml 100 ml 305 ml Exam Constitutional: alert, oriented, well developed Respiratory: clear to auscultation, other (4 ANABELLA drains status post bilateral mastectomy) Cardiovascular: nl pulses, regular rate and rhythm Gastrointestinal: non-tender, soft Musculoskeletal: nl extremities to inspection Extremities: normal pulses Neurological: CORPORATE ANALYST II-XII intact, nl mental status, nl speech, nl strength Results Result Diagram: 07/25/17 2321 07/23/17 1215 Results 24 hrs Laboratory Tests Test 07/25/17 12:28 07/25/17 17:16 07/25/17 22:03 07/25/17 23:21 Bedside Glucose 119 132 122 Hemoglobin 10.6 L Hematocrit 30.6 L Test 07/26/17 09:04 Bedside Glucose 120 Medications Medications Current Medications Ondansetron HCl (Zofran Inj) 4 mg Q6H PRN IV NAUSEA AND/OR VOMITING Last administered on 07/23/17 20:54; Admin Dose 4 MG; Start 07/23/17 at 17:00 Morphine Sulfate 2 mg 2 mg Q1H PRN IV PAIN Last administered on 07/23/17 21: 52; Admin Dose 2 MG; Start 07/23/17 at 17:00 Acetaminophen (Ofirmev 1000mg/ 100ml Iv) 100 ml @ 400 mls/hr Q6H PRN IVPB PAIN Last administered on 07/24/17 07:32; Admin Dose 400 MLS/HR; Start at 17:00 Amlodipine Besylate (Norvasc) 5 mg DAILY PO Last administered on 07/26/17 09: 15; Admin Dose 5 MG; Start 07/23/17 at 20:00 Letrozole (Femara) 2.5 mg DAILY PO Last administered on 07/26/17 09:14; Admin Dose 2.5 MG; Start 07/24/17 at 09:00 Atorvastatin Calcium (Lipitor) 10 mg DAILY@21 PO Last administered on 20:34; Admin Dose 10 MG; Start 07/23/17 at 21:00 Miscellaneous Information 1 ea NOTE XX ; Start 07/23/17 at 20:30 Glucose (Glutose) 15 gm Q15M PRN PO DECREASED GLUCOSE; Start 07/23/17 at 20:30 Glucose (Glutose) 22.5 gm Q15M PRN PO DECREASED GLUCOSE; Start 07/23/17 at 20: 30 Dextrose (D50w Syringe) 25 ml Q15M PRN IV DECREASED GLUCOSE; Start 07/23/17 at 20:30 Dextrose (D50w Syringe) 50 ml Q15M PRN IV DECREASED GLUCOSE; Start 07/23/17 at 20:30 Glucagon (Glucagen) 1 mg Q15M PRN IM DECREASED GLUCOSE; Start 07/23/17 at 20: 30 Glucose 15 gm 15 gm Q15M PRN BUCCAL DECREASED GLUCOSE; Start 07/23/17 at 20:30 Potassium Chloride/Sodium Chloride (1/2 NS + KCl 20 Meq) 1,000 ml @ 100 mls/hr Q10H IV Last administered on 07/24/17 08:44; Admin Dose 100 MLS/HR; Start at 22:00 Lisinopril (Zestril) 40 mg DAILY PO Last administered on 07/26/17 09:19; Admin Dose 40 MG; Start 07/25/17 at 09:00 Hydrochlorothiazide (Hydrochlorothiazide) 50 mg DAILY PO Last administered on 07/26/17 09:20; Admin Dose 50 MG; Start 07/25/17 at 09:00 Diagnostic Test (Pha) (Accu-Chek) XX ; Start 07/25/17 at 02:00 Acetaminophen (Tylenol Tab) 650 mg Q6H PRN PO PAIN AND OR ELEVATED TEMP Last administered on 07/25/17 21:15; Admin Dose 650 MG; Start 07/25/17 at 21:00 NICKOLAS PERAZA Jul 26, 2017 11:40
--- NOTE | 2017-07-26 11:42 | PDOCDIS ---
Discharge Instructions CONDITION Patient Condition: Good HOME CARE INSTRUCTIONS: Diet Instructions: RegularSpecial Diet: CARB CONTROLLED ACTIVITY: Activity Restrictions: Slowly Increase Activity Rest between Activity Avoid heavy lifting Do not operate Power Tool Avoid Heavy Housework Bathing Restrictions: Shower FOLLOW UP/APPOINTMENTS Follow-up Plan Follow-up with Dr. Sandoval within 1-2 weeks Follow-up with PCP within 1 week Patient to continue drain care, she is able to do so NICKOLAS PERAZA Jul 26, 2017 11:42
[2017-07-26] MEDS ORDERED: HYDR-906 PO (11:44)
[2017-07-26] MEDS ORDERED: DOCU-144 PO (11:44)
[2017-07-26 14:05] VITALS: BP 140/65; RESP 18
--- NOTE | 2017-07-27 05:53 | PN ---
DATE: 07/26/2017 Status post bilateral mastectomy. SUBJECTIVE: No complaints. She feels better. Pain is under control. No dizziness. OBJECTIVE GENERAL: Awake, alert, oriented x3. VITAL SIGNS: Temperature 98.6, pulse rate 81, respirations 18; blood pressure 175/102 on one occasi on, another occasion 142/74; saturation 100% on room air. LABORATORY DATA: Last hemoglobin last night at 0023 hours was 10.6, hematocrit 38.6, has been stabl e over the past 2 days. Román-Hammer is still draining serosanguineous fluid. In past 24 ho urs, . Dressing is intact . The patient can . ASSESSMENT AND PLAN: A 56-year-old female with cancer of breast on both breasts. She underwent jeremi ateral mastectomy. Postoperatively, she had some bleeding from the Román-Hammer drain and some res idual dizziness, was kept a couple of days. The hemoglobin and hematocrit have stabilized, did not go below 10, and the dizziness went away. The patient actually . Now today is stable. The pa dolores can be discharged home. Instructions for care of the Román-Hammer drain were given to the fa zully and how to drain them out and measure them. The patient to call Dr. Pierre' office and make an appointment for followup. Dictated By: TIFF PALM MD PS/NTS Conf#: [id number] DID#: [id number] CC: JEFFREY PIERRE MD;*EndCC*
--- NOTE | 2017-07-27 17:47 | HP ---
DATE OF ADMISSION: 07/23/2017 CHIEF COMPLAINT: A 56-year-old female who was admitted for bilateral mastectomy. HISTORY OF PRESENT ILLNESS: The patient is known to me. She previously was treated for a breast ca ncer of her right breast, and successfully completed that treatment, but then based on the fact that she has a lot of fear related to developing secondary malignancy, she requested that she undergo ma stectomy, and in further conversation she requested bilateral mastectomy. She consented and was jennie eduled for surgery. PAST MEDICAL HISTORY: Significant for [id number] diabetes mellitus, hypertension, hypert hyroidism. PAST SURGICAL HISTORY: As above. She also had a previous appendectomy and cholecystectomy. MEDICATIONS INCLUDE: 1. Metformin. 2. Simvastatin. 3. Synthroid. 4. Lisinopril. 5. Amlodipine. Doses are not provided. ALLERGIES: THE PATIENT HAS NO KNOWN DRUG ALLERGIES. SOCIAL HISTORY: The patient is otherwise healthy, lives with her family, does not abuse cigarettes or alcohol. FAMILY HISTORY: Noncontributory. PHYSICAL EXAMINATION: A focused exam is done in the holding room. The left breast is examined. Th ere is no evidence of discrete mass, nipple change, or nipple discharge. No evidence of left axilla ry lymphadenopathy. The right breast is examined. There is a well-healed surgical scar. No eviden ce of discrete mass, nipple change, nipple discharge or right axillary lymphadenopathy. ASSESSMENT: A 56-year-old female. PLAN: We will proceed with bilateral mastectomies. Dictated By: JEFFREY MOSELEY/LEIGH Conf#: [id number] DID#: [id number]
== END 2017-07-26 14:17 | disposition home or self-care (01) | DRG 581 ==
LOC: SDS 11:01 → REC 16:46 → MS1 18:34
PROVIDERS: ADMIT Surgery Surgical Oncology; ATTEND Surgery Surgical Oncology
PROC: 07B60ZX Excision of Left Axillary Lymphatic, Open Approach, Diagnostic (ICD-10-PCS; 2017-07-23)
PROC: 0HBT0ZZ Excision of Right Breast, Open Approach (ICD-10-PCS; 2017-07-23)
PROC: 0HTU0ZZ Resection of Left Breast, Open Approach (ICD-10-PCS; principal; 2017-07-23 13:00)
DX: C50.912 Malignant neoplasm of unspecified site of left female breast (principal); C50.911 Malignant neoplasm of unspecified site of right female breast; I10 Essential (primary) hypertension; E11.9 Type 2 diabetes mellitus without complications; E03.9 Hypothyroidism, unspecified; Z17.0 Estrogen receptor positive status [ER+]; Z79.4 Long term (current) use of insulin; Z90.49 Acquired absence of other specified parts of digestive tract
CPT/HCPCS: 71010; 80053; 82962; 85014; 85018; 85025; 85610; 85730; 88307; 93005; J0131; J0690; J1170; J1815; J2250; J2270; J2405; J2710; J2765; J3480

== ENCOUNTER 2017-08-30 07:30 | Inpatient (IN) | payer OTHER ==
[~2017-08-30] VITALS: Ht 165.1 cm; Wt 68.9 kg
[2017-08-30] VITALS (20 sets, daily range): BP systolic 132–191; BP diastolic 65–82; PULSE 74–98; RESP 10–20; Ht 165.1 cm; Wt 68.9 kg
[~2017-08-30 07:30] MED LIST changes: -CEPH-443 PO; +DOCU-144 PO; -EPHEDrine SULFATE 50 MG/5 ML SYG ONE; +LETR2.5T PO; +LEVO75TA84 PO; +SIMV10TA PO; -SIMV5TAB50 PO; +SOD CHLORIDE 0.9% 1,000 ML IV SCH; -SYN75 PO
[2017-08-30] MEDS ORDERED: LISI1TAB8 PO (11:19)
[2017-08-30] MEDS ORDERED: AMLO-145 PO (11:20)
[2017-08-30] MEDS ORDERED: THROMBIN 5000 UNIT VIAL ONE ×2 (12:17→14:43)
[2017-08-30 12:39] LABS: BASOPHIL # 0.1 10^3/ul (0.0-0.1); EOSINOPHILS # 0.1 10^3/ul (0.0-0.5); EOSINOPHILS % 1.6 % (0.0-7.0); HEMATOCRIT 34.6 % (37.0-47.0); LYMPHOCYTES # 2.4 10^3/ul (0.8-2.9); LYMPHOCYTES % 29.9 % (15.0-51.0); MEAN CORPUSCULAR HEMOGLOBIN 30.2 pg (29.0-33.0); MEAN CORPUSCULAR HGB CONC 34.7 g/dl (32.0-37.0); MEAN CORPUSCULAR VOLUME 86.9 fl (82.0-101.0); MEAN PLATELET VOLUME 10.9 fl (7.4-10.4); MONOCYTE # 0.6 10^3/ul (0.3-0.9); MONOCYTES % 7.7 % (0.0-11.0); NEUTROPHIL # 4.8 10^3/ul (1.6-7.5); NEUTROPHILS % 59.7 % (39.0-77.0); PLATELET COUNT 338 10^3/UL (140-415); RED BLOOD COUNT 3.98 10^6/ul (4.20-5.40); RED CELL DISTRIBUTION WIDTH 12.6 % (11.5-14.5)
[2017-08-30 12:48] LABS: ALBUMIN 4.4 g/dl (3.3-4.9); ALBUMIN/GLOBULIN RATIO 1.22; BILIRUBIN,INDIRECT 0.4 mg/dl (0-1.1); BILIRUBIN,TOTAL 0.4 mg/dl (0.2-1.3)
[2017-08-30 13:03] LABS: CALCIUM 9.8 mg/dl (8.4-10.2); CREATININE 0.47 mg/dl (0.44-1.00); POTASSIUM 3.9 mmol/L (3.5-5.1)
[2017-08-30 13:33] LABS: INR 0.89; PROTIME 12.1 Sec (11.9-14.9); PT RATIO 0.9
[2017-08-30 13:51] LABS: PARTIAL THROMBOPLASTIN TIME 29.4 Sec (25.0-35.0)
[2017-08-30] MEDS ORDERED: FENTAnyl 50 MCG/ML VIAL ONE (14:57)
[2017-08-30] MEDS ORDERED: ROCURONIUM 50 MG INJ ONE (15:24)
[2017-08-30] MEDS ORDERED: LIDOCAINE 2% (SDV) 5 ML INJ ONE (15:24)
[2017-08-30] MEDS ORDERED: SUCCINYLCHOLINE CHLORIDE 100 MG/5 ML SYG IV ONE (15:24)
[2017-08-30] MEDS ORDERED: CEFAZOLIN 1 GM INJ ONE (15:24)
[2017-08-30] MEDS ORDERED: SUGAMMADEX SODIUM 200 MG/2 ML VIAL IV ONE (15:24)
[2017-08-30] MEDS ORDERED: PROPOFOL 20 ML ONE (15:24)
[2017-08-30] MEDS ORDERED: DIPHENHYDRAMINE 50 MG INJ IV PRN (16:00)
[2017-08-30] MEDS ORDERED: METOCLOPRAMIDE 10 MG INJ IV PRN (16:00)
[2017-08-30] MEDS ORDERED: FENTAnyl 50 MCG/ML VIAL IV PRN ×2 (16:00)
[2017-08-30] MEDS ORDERED: HYDROmorphONE (0.2 MG/ML) 10ML SYG IV PRN ×2 (16:00)
[2017-08-30] MEDS ORDERED: MEPERIDINE 25 MG INJ IV PRN (16:00)
[2017-08-30] MEDS ORDERED: ONDANSETRON 4 MG INJ IV PRN ×3 (16:00→17:30)
--- NOTE | 2017-08-30 16:41 | SIPON ---
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
[2017-08-30] MEDS ORDERED: D5W-0.45 NACL + KCL 20 MEQ 1,000 ML IV SCH (16:43)
[2017-08-30] MEDS ORDERED: morphine 2 MG INJ IV PRN ×2 (17:00→17:30)
[2017-08-30] MEDS: HYDROmorphONE (0.2 MG/ML) 10ML SYG IV PRN ×2 (17:18→17:32)
[2017-08-30] MEDS ORDERED: hydrALAzine 20 MG INJ IV PRN (17:30)
[2017-08-30] MEDS ORDERED: LABETALOL HCL 20MG INJ IV PRN (17:30)
[2017-08-30] MEDS: DEXTROSE 5%-0.45% NACL 1,000 ML IV SCH (17:30)
--- NOTE | 2017-08-30 17:43 | HP ---
Date/Time of Note Date/Time of Note DATE: 08/30/17 TIME: 17:34 Assessment/Plan VTE Prophylaxis VTE Prophylaxis Intervention: ambulation, anti-embolic stocking, SCD's Lines/Catheters IV Catheter Type (from Nrsg): Peripheral IV Central line still needed: No Urinary Cath still in place: No Assessment/Plan Problems: (1) Thyroid cancer Status: Acute Comment: S/PTotal thyroidectomy with en bloc resection of left strap muscles on 08/30/2017 She is NPO right now. D51/2 NS given as maintained fluid. Dilaudid given as needed for severe pain Fentanyl IV given as needed for mild to moderate pain Synthroid resumed TSH repeated in A.M. (2) DM type 2 with diabetic dyslipidemia Status: Chronic Comment: Accu-check Q6hr Insulin sliding mild doses per protocol. Metformin held since she is not eating (3) HTN (hypertension) Status: Chronic Comment: IV labetalol Q2 hrs for SBP>160 or DBP>110 Qualifiers: Hypertension type: essential hypertension Qualified Code: I10 - Essential hypertension (4) Hypothyroidism (acquired) Status: Chronic Comment: Synthroid resumed Assessment/Plan Acute neck pain S/P total Total thyroidectomy with en bloc resection of left strap muscles Pain management as mentioned as above. HPI/ROS Admit Date/Time Admit Date/Time Aug 30, 2017 at 10:48 Hx of Present Illness This is a 56 years old [place]ian Gabonese lady with significant medical illness of hypothyroidism,hypertension,type 2 DM with dyslipidemia,right breast cancer S/P bilateral mastectomy on who was admitted here at this time due to elective total thyroidectomy due to localized papillary adenocarcinoma of thyroid . She has been found to have thyroid nodule/cancer which was not responded to hormonal therapy. She denied any headache nor blurred vision. She denied any chest pain nor short of breath right now. No PND nor orthopnea. No fever nor chill. She has had feeling tired and fatigued for the last 3 months . She denied any weight loss or loss of appetite. After surgery today,she was more alert and oriented to herself ,place but not time. She was opening her eyes by calling her name. She denied chest pain nor short of breath. No fever nor chill. She denied any abdominal pain nor feeling nauseated. She has been found to have elevated blood pressure due to the pain over surgical area. No leg/arm numbness or weakness. ROS Constitutional: fatigue, No chills, No diaphoresis, No disoriented, No febrile, No improved, No nausea , No no complaints, No other, No poor po, No weight change Eyes: No discharge, No no complaints, No other, No pain, No redness, No visual change ENT: No bleeding, No congestion, No discharge, No dysphagia, No no complaints, No other, No pain, No sore throat Respiratory: No cough, No no complaints, No other, No pain, No pleuritic pain, No shortness of breath, No sputum, No wheezing Cardiovascular: No chest pain, No edema, No lightheadedness, No no complaints, No orthopenea, No other, No palpitations, No paroxysmal nocturnal dyspnea Gastrointestinal: No blood, No constipation, No decreased appetite, No diarrhea , No flatus, No nausea, No no complaints, No other, No pain, No passing stool, No vomiting Musculoskeletal: No back pain, No bone/joint pain, No neck pain, No no complaints, No other, No restricted range of motion, No swelling Skin: No bruising, No erythema, No laceration, No no complaints, No other, No pruritis, No rash, No skin lesions Neurologic: No confusion, No dizziness, No focal-weakness, No headache, No no complaints, No other, No seizure, No syncope Endocrine: No dry skin, No no complaints, No other, No polydypsia, No polyuria , No temp intolerance, No weight change Lymphatic: No adenopathy, No lymphadema, No no complaints, No other, No tender nodes Psychological: No anxiety, No confusion, No depression, No nl mood/affect, No no complaints, No other, No suicidal Immunologic: No immunodeficiency, No no complaints, No other, No pruritis, No rhinitis, No urticaria PMH/Family/Social Past Medical History Medical History: cancer (right breast cancer S/P bilateral mastectomy), diabetes (type 2 DM with dyslipidemia), high cholesterol, hypertension, hypothyroid Past Surgical History Past Surgical Hx: appendectomy, cholecystectomy, other (bilateral mastectomy) Family History Significant Family History: no pertinent family hx Social History Alcohol Use: none Smoking Status: Never smoker Drug Use: none Exam/Review of Systems Vital Signs Vitals Vital Signs Date Time Temp Pulse Resp B/P Pulse Ox O2 Delivery O2 Flow Rate FiO2 08/30/17 16:59 97.7 08/30/17 16:55 94 20 142/65 99 Mask 8.0 Exam Constitutional: alert, oriented (to herself ,place and time), well developed, No distress, No frail, No other Psych: nl mood/affect, No anxiety, No confusion, No depression, No no complaints, No other, No suicidal Head: atraumatic, normocephalic Eyes: EOMI, nl conjunctiva, nl lids, nl sclera, No PERRL, No fundi, disc, No icteric, No other ENMT: mucosa pink and moist, nl external ears & nose, nl lips & teeth, nl nasal mucosa & septum Neck: non-tender, other (S/P thyroidectomy .There is no active bleeding), supple, No bruits, No jvd, No masses, No nuchal rigidity, No thyromegaly Respiratory: clear to auscultation, normal air movement, No congested cough, No crackles/rales, No diminished breath sounds, No intercostal retraction, No labored breathing, No other, No respirations, No tactile fremitus, No wheezing Cardiovascular: nl pulses, regular rate and rhythm Gastrointestinal: nl liver, spleen, non-tender, soft, No ascites, No bowel sounds, No distended, No firm, No hepatomegaly, No mass , No other, No rebound or guarding, No splenomegaly, No surgical scars, No tender Musculoskeletal: nl extremities to inspection, nl gait and stance, No joint tenderness, No muscle tone, No muscle weakness, No other, No range of motion, No spine non-tender, No swelling Extremities: normal pulses, No calf tenderness, No clubbing, No cyanosis, No edema, No other, No palpable cord, No pitting pedal edema, No tenderness Neurological: IT ANALYST II-XII intact, nl mental status, nl speech, nl strength, No DTR's symmetric, No confused, No focal weakness, No lethargic, No numbness , No other, No reflexes, No unresponsive Skin: nl turgor, No diaphoresis, No ecchymosis, No laceration, No other, No puncture, No rash or lesions Labs Result Diagram: 08/30/17 1200 08/30/17 1200 Medications Medications Current Medications Cefazolin Sodium/ Dextrose 50 ml @ 100 mls/hr PREOP IVPB ; Start 08/30/17 at 06:30; Stop 08/30/17 at 18:00 Acetaminophen (Ofirmev 1000mg/ 100ml Iv) 100 ml @ 400 mls/hr Q6H PRN IVPB PAIN ; Start 08/30/17 at 17:00 Morphine Sulfate (morphine) 2 mg Q2H PRN IV SEVERE PAIN LEVEL 7-10; Start at 17:30 Amlodipine Besylate (Norvasc) 5 mg QPM PO ; Start 08/30/17 at 21:00 Letrozole (Femara) 2.5 mg DAILY PO ; Start 08/31/17 at 09:00 Lisinopril (Zestril) 20 mg BID PO ; Start 08/30/17 at 21:00 Miscellaneous Information (* Miscellaneous Pharmacy Order) Discontinue current oral sulfonylur... ONCE ONCE XX ; Start 08/30/17 at 17:30; Stop 08/30/17 at 17:31; Status UNV Diagnostic Test (Pha) (Accu-Chek) 1 ea XX ; Start 08/31/17 at 02:00; Status UNV Miscellaneous Information (* Miscellaneous Pharmacy Order) HYPOGLYCEMIA PROTOCOL w... ONCE ONCE XX ; Start 08/30/17 at 17:30; Stop 08/30/17 at 17:31 ; Status UNV Miscellaneous Information (* Miscellaneous Pharmacy Order) Discontinue all previ... ONCE ONCE XX ; Start 08/30/17 at 17:30; Stop 08/30/17 at 17:31; Status UNV Hydralazine HCl (Apresoline) 10 mg Q6 PRN IV blood pressure; Start 08/30/17 at 17:30; Status UNV Ondansetron HCl 4 mg 4 mg Q4H PRN IV NAUSEA AND/OR VOMITING; Start 08/30/17 at 17:30; Status UNV Dextrose/Sodium Chloride (D5-1/2ns) 500 ml @ 100 l/hr Q1M IV ; Start 08/30/17 at 17:30; Status UNV Labetalol HCl (Labetalol) 10 mg Q2H PRN IV ELEVATED BLOOD PRESSURE; Start at 17:30; Status UNV Procedures Procedures Total thyroidectomy with en bloc resection of left strap muscles Copies To: CC: NICKOLAS PERAZA; JEFFREY PIERRE MD, NARUCHON MD Aug 30, 2017 17:43
[2017-08-30] MEDS ORDERED: LABETALOL HCL 20MG INJ ONE (17:44)
[2017-08-30] MEDS: INSULIN ASPART [NOVOLOG] 3 ML PEN SC SCH (17:55)
[2017-08-30] MEDS ORDERED: GLUCAGON 1 MG INJ IM PRN (18:00)
[2017-08-30] MEDS ORDERED: GLUCOSE GEL 15 GRAM TUBE BUCCAL PRN (18:00)
[2017-08-30] MEDS ORDERED: DEXTROSE 50% 50 ML SYRINGE IV PRN ×2 (18:00)
[2017-08-30] MEDS ORDERED: GLUCOSE GEL 15 GRAM TUBE PO PRN ×2 (18:00)
[2017-08-30] MEDS: LISINOPRIL 20 MG TAB PO SCH (20:57)
[2017-08-30] MEDS: AMLODIPINE 5 MG TAB PO SCH (20:57)
[2017-08-30] MEDS: FAMOTIDINE 20 MG INJ IV SCH (20:58)
--- NOTE | 2017-08-30 23:50 | OPR ---
DATE OF OPERATION: 08/30/2017 PREOPERATIVE DIAGNOSIS: Papillary carcinoma of the thyroid. 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 PROCEDURE: Total thyroidectomy with en bloc resection of a portion of the left strap muscles. ANESTHESIA: General. ANESTHESIOLOGIST: Dr. Ramírez SURGEON: Chandu Sandoval MD [employer]PORT OPERATIONS SUPERVISOR: Dr. Nathan Palm INDICATIONS FOR PROCEDURE: The patient is known to me. I had previously treated her for invasive b reast cancer. As part of her staging workup, she had a CT PET scan, was found to have a very suspic ious nodule in the left lobe of the thyroid. Biopsy confirmed the papillary malignancy. She was co unseled as to the need for total thyroidectomy. She consented and was scheduled for surgery. DESCRIPTION OF PROCEDURE: The patient was brought to the operating theater, placed under general en dotracheal tube anesthesia. The neck was placed in the extended position and was prepped and draped in usual sterile fashion. Planned incision was demarcated with marking pen approximately 2 cm abov e the clavicles, extending approximately 5 cm on either side of the midline. The incision was jessie ed out with a 15 blade scalpel. Subcutaneous tissue was dissected with cautery down through the aroldo tysma muscles bilaterally. Subplatysmal flaps were then created using cautery and blunt dissection, first superiorly to the hyoid bone, then inferiorly to the level of clavicles. The Martinez retract or was placed in a standard fashion, median raphe was then incised longitudinally to allow exposure to the underlying strap muscles and thyroid gland. On the left side, the strap muscles began to be dissected off the thyroid gland, it became obvious they were involved in the tumor process. This re quired resection of a portion of the strap muscles directly overlying the tumor. The left lobe of t he thyroid was then mobilized. The inferior pole was sequentially isolated and transected using the LigaSure device. Great care was taken to ensure that the left recurrent laryngeal nerve was visual ized at all times. The left inferior parathyroid gland was identified and kept out of harm's way. More superiorly, the left pole, the upper pole of the left lobe was mobilized and sequentially trans ected using the LigaSure device. There was dense tissue overlying the midline of the trachea. This was initially dissected off the trachea. At this point, the right strap muscles were mobilized off the right thyroid gland, the right lobe was mobilized, taking great care to ensure the location of the recurrent laryngeal nerve. The lower pole was sequentially isolated and transected. Right infe rior parathyroid gland was identified. The right superior parathyroid gland was not definitely iden tified. Superior pole was then transected in sequential fashion. Remaining connective tissue attac hments consistent with the ligament of Sewell were then transected with cautery. Specimen was remove d, oriented and underwent gross analysis by attending pathologist, Dr. Michael Kwon. He stated t here was no evidence of thyroidal tissue or parathyroid glands attached to the specimen. The specimen was then sent for permanent pathologic analysis. The wound was irrigated. Minimal bleedin g was controlled with cautery. Two 1/4 inch drains were prepared. One was laid in the bed of the l eft thyroid lobe, the other in the bed of the right thyroid lobe. They were brought out in the midl ine. The drains were secured to the skin of the anterior cervical region with 2-0 nylon suture. Th e platysma muscles were then reapproximated bilaterally with 4-0 Vicryl sutures. A final skin appro ximation took place with 5-0 PDS in subcuticular fashion. Benzoin and Steri-Strips were then applie d. Patient tolerated procedure well. The estimated blood loss was approximately 20 mL. There were no complications and the patient was transported in stable condition to the recovery room. Dictated By: CHANDU SANDOVAL MD TL/LEIGH Conf#: [id number] DID#: [id number] CC: NATHAN PALM MD;*EndCC*
[2017-08-31] VITALS (8 sets, daily range): BP systolic 139–188; BP diastolic 66–87; PULSE 65–96; RESP 16–20
[2017-08-31] MEDS: ACCU-CHEK XX SCH ×2 (01:28→21:19)
[2017-08-31] MEDS: DEXTROSE 5%-0.45% NACL 1,000 ML IV SCH ×2 (04:39→14:30)
[2017-08-31] MEDS: ACETAMINOPHEN 1000MG/100ML IV 100 ML IVPB PRN ×2 (04:40→10:34)
[2017-08-31] MEDS ORDERED: LEVOTHYROXINE 100 MCG VIAL IV SCH (06:00)
--- NOTE | 2017-08-31 06:28 | RADRPT ---
PROCEDURE: XR Chest. CLINICAL INDICATION: Hypoxia TECHNIQUE: A single AP view of the chest was obtained. COMPARISON: CHEST 07/23/2017; FABIO CHEST 10/22/2016 FINDINGS: Lung volumes are low with compressive changes and crowding of the central pulmonary vascular marking s with bibasilar atelectasis . No focal airspace opacity, pleural effusion or pneumothorax is seen. The cardiomediastinal silhouette is within normal limits for size. The osseous structures are unre markable. IMPRESSION: Low lung volumes with compressive changes and bibasilar atelectasis, increased when compared to the prior examination. RPTAT: HH .Cristela Watt MD, MD Date Time Electronically viewed and signed by .Cristela Watt MD, on 08/31/2017 06:27 .G/
[2017-08-31 06:35] LABS: BASOPHIL # 0.1 10^3/ul (0.0-0.1); BASOPHILS % 0.4 % (0.0-2.0); HEMATOCRIT 33.4 % (37.0-47.0); HEMOGLOBIN 11.4 g/dl (12.0-16.0); LYMPHOCYTES # 0.9 10^3/ul (0.8-2.9); LYMPHOCYTES % 6.6 % (15.0-51.0); MEAN CORPUSCULAR HEMOGLOBIN 29.8 pg (29.0-33.0); MEAN CORPUSCULAR HGB CONC 34.1 g/dl (32.0-37.0); MEAN CORPUSCULAR VOLUME 87.2 fl (82.0-101.0); MEAN PLATELET VOLUME 10.7 fl (7.4-10.4); MONOCYTES % 7.4 % (0.0-11.0); NEUTROPHILS % 85.3 % (39.0-77.0); PLATELET COUNT 326 10^3/UL (140-415); RED BLOOD COUNT 3.83 10^6/ul (4.20-5.40); RED CELL DISTRIBUTION WIDTH 12.3 % (11.5-14.5)
[2017-08-31] MEDS ORDERED: LEVOTHYROXINE 75 MCG TAB PO SCH (07:00)
[2017-08-31 07:11] LABS: ALBUMIN 3.8 g/dl (3.3-4.9); ALBUMIN/GLOBULIN RATIO 1.08; BILIRUBIN,INDIRECT 0.7 mg/dl (0-1.1); BILIRUBIN,TOTAL 0.7 mg/dl (0.2-1.3); CALCIUM 6.9 mg/dl (8.4-10.2); CREATININE 0.43 mg/dl (0.44-1.00); POTASSIUM 3.2 mmol/L (3.5-5.1); TOTAL PROTEIN 7.3 g/dl (6.1-8.1)
[2017-08-31 07:18] LABS: CHOL/HDL RATIO 2.9 RATIO; MAGNESIUM 1.3 mg/dl (1.7-2.5); PHOSPHORUS 4.3 mg/dl (2.5-4.9)
[2017-08-31 07:34] LABS: T3 UPTAKE 29.7 % (23.5-40.5)
[2017-08-31] MEDS: INSULIN ASPART [NOVOLOG] 3 ML PEN SC SCH ×3 (07:50→17:55)
[2017-08-31] MEDS: LISINOPRIL 20 MG TAB PO SCH ×3 (08:50→11:29)
[2017-08-31] MEDS: FAMOTIDINE 20 MG INJ IV SCH ×2 (08:55→20:11)
[2017-08-31] MEDS ORDERED: LETROZOLE 2.5 MG TAB PO SCH (09:00)
[2017-08-31 10:18] LABS: ADD UMIC NO; UR ASCORBIC ACID NEGATIVE (NEGATIVE); UR BILIRUBIN (Dip) NEGATIVE (NEGATIVE); UR BLOOD (Dip) NEGATIVE (NEGATIVE); UR CLARITY CLEAR (CLEAR); UR COLOR YELLOW (YELLOW); UR GLUCOSE (Dip) 1+ mg/dL (NEGATIVE); UR KETONES (Dip) NEGATIVE (NEGATIVE); UR LEUKOCYTE ESTERASE (Dip) NEGATIVE Leu/ul (NEGATIVE); UR NITRITE (Dip) NEGATIVE (NEGATIVE); UR SPECIFIC GRAVITY (Dip) 1.024 (1.003-1.030); UR TOTAL PROTEIN (Dip) NEGATIVE (NEGATIVE); UR UROBILINOGEN (Dip) NEGATIVE (NEGATIVE)
[2017-08-31] MEDS ORDERED: POTASSIUM CHLORIDE 20 MEQ POWDER FOR ORAL SOLN PO ONE (11:00)
[2017-08-31] MEDS ORDERED: MAGNESIUM SULFATE 4 GM/100 ML 100 ML IVPB ONE (11:00)
[2017-08-31] MEDS ORDERED: CALCIUM GLUCONATE 10% 1 GM in DEXTROSE 5% 100 ML IVPB ONE (11:00)
--- NOTE | 2017-08-31 11:29 | PN ---
Date/Time of Note Date/Time of Note DATE: 08/31/17 TIME: 11:14 Assessment/Plan VTE Prophylaxis VTE Prophylaxis Intervention: SCD's Lines/Catheters IV [facility] Peripheral IV Urinary Cath still in place: No Assessment/Plan Assessment/Plan 56 yo woman: 1. S/p total thyroidectomy with en bloc resection of a portion of the left strap muscles for papillary carcinoma of the thyroid with invasion of left strap muscles, POD#1 Replete calcium, monitor calcium. Start on calcium carbonate. Replete all electrolytes. Patient back on her Synthroid. Follow-up further recommendations from Surgery today. 2. Hypothyroidism: Status post thyroidectomy, total. Resume Synthroid. She will need her TFTs followed as an outpatient and adjustment with Synthroid as needed. 3. Hypertension: Continue home medication, pain control. 4. Diabetes mellitus: Agree with sliding scale insulin and diabetic diet. Resume metformin once tolerating p.o. 5. Hyperlipidemia: Continue statin therapy. 6. Electrolyte imbalance, with hypomagnesemia, hypokalemia, hypocalcemia; replete calcium, potassium, magnesium level. Repeat labs later this evening for further repletion as needed 7. S/p bilateral mastectomy after having recurrent breast cancer diagnosed in the contralateral left breast, 3 weeks ago. Remains stable Prophylaxis: SCDs for DVT prophylaxis, Pepcid for GI prophylaxis Disposition: Replete electrolytes, recheck labs this evening with further repletion as needed. Subjective 24 Hr Interval Summary Free Text/Dictation Patient doing fairly well, she will be started on clears today. Electrolytes will be repleted. Repeat BMP and calcium levels later this afternoon and tomorrow a.m. Exam/Review of Systems Vital Signs Vitals Vital Signs Date Time Temp Pulse Resp B/P Pulse Ox O2 Delivery O2 Flow Rate FiO2 08/31/17 08:00 99.1 85 18 141/70 98 08/30/17 23:45 Nasal Cannula 3.0 Intake and Output 08/30/17 08/30/17 08/31/17 15:00 23:00 07:00 Intake Total 1200 ml 100 ml Output Total 5 ml 1200 ml Balance 1195 ml -1100 ml Exam Constitutional: alert, oriented, well developed Neck: other (Status post thyroidectomy, dressing in place) Respiratory: clear to auscultation, normal air movement Cardiovascular: nl pulses, regular rate and rhythm Gastrointestinal: non-tender, soft Musculoskeletal: nl extremities to inspection Extremities: normal pulses, other (No edema, clubbing or cyanosis) Neurological: [employer] II-XII intact, nl mental status, nl speech, nl strength Results Result Diagram: 08/31/17 0608 08/31/17 0608 Results 24 hrs Laboratory Tests Test 08/30/17 12:00 08/30/17 12:04 08/30/17 17:23 08/30/17 17:51 White Blood Count 8.0 Red Blood Count 3.98 L Hemoglobin 12.0 Hematocrit 34.6 L Mean Corpuscular Volume 86.9 Mean Corpuscular Hemoglobin 30.2 Mean Corpuscular Hemoglobin Concent 34.7 Red Cell Distribution Width 12.6 Platelet Count 338 # Mean Platelet Volume 10.9 H Neutrophils % 59.7 Lymphocytes % 29.9 Monocytes % 7.7 Eosinophils % 1.6 Basophils % 1.0 Nucleated Red Blood Cells % 0.0 Neutrophils # 4.8 Lymphocytes # 2.4 Monocytes # 0.6 Eosinophils # 0.1 Basophils # 0.1 Nucleated Red Blood Cells # 0.0 Prothrombin Time 12.1 Prothrombin Time Ratio 0.9 INR International Normalized Ratio 0.89 Activated Partial Thromboplast Time 29.4 Sodium Level 141 Potassium Level 3.9 Chloride Level 102 Carbon Dioxide Level 29 Anion Gap 14 Blood Urea Nitrogen 13 Creatinine 0.47 Glucose Level 108 Calcium Level 9.8 8.9 Total Bilirubin 0.4 Direct Bilirubin 0.00 Indirect Bilirubin 0.4 Aspartate Amino Transf (AST/SGOT) 25 Alanine Aminotransferase (ALT/SGPT) 34 Alkaline Phosphatase 100 Total Protein 8.0 Albumin 4.4 Globulin 3.60 H Albumin/Globulin Ratio 1.22 Bedside Glucose 110 169 Test 08/31/17 00:41 08/31/17 06:08 08/31/17 08:53 08/31/17 09:01 Calcium Level 7.7 L 6.9 L White Blood Count 14.0 #H Red Blood Count 3.83 L Hemoglobin 11.4 L Hematocrit 33.4 L Mean Corpuscular Volume 87.2 Mean Corpuscular Hemoglobin 29.8 Mean Corpuscular Hemoglobin Concent 34.1 Red Cell Distribution Width 12.3 Platelet Count 326 Mean Platelet Volume 10.7 H Neutrophils % 85.3 H Lymphocytes % 6.6 L Monocytes % 7.4 Eosinophils % 0.0 Basophils % 0.4 Nucleated Red Blood Cells % 0.0 Neutrophils # 12.0 H Lymphocytes # 0.9 Monocytes # 1.0 H Eosinophils # 0.0 Basophils # 0.1 Nucleated Red Blood Cells # 0.0 Sodium Level 138 Potassium Level 3.2 L Chloride Level 99 Carbon Dioxide Level 26 Anion Gap 16 Blood Urea Nitrogen 10 Creatinine 0.43 L Glucose Level 177 Hemoglobin A1c 6.2 H Phosphorus Level 4.3 Magnesium Level 1.3 L Total Bilirubin 0.7 Direct Bilirubin 0.00 Indirect Bilirubin 0.7 Aspartate Amino Transf (AST/SGOT) 24 Alanine Aminotransferase (ALT/SGPT) 32 Alkaline Phosphatase 81 Total Protein 7.3 Albumin 3.8 Globulin 3.50 H Albumin/Globulin Ratio 1.08 Triglycerides Level 82 Cholesterol Level 137 LDL Cholesterol, Calculated 75 HDL Cholesterol 46 Cholesterol/HDL Ratio 2.9 Free Thyroxine Index 3.36 Thyroxine (T4) 11.3 H Triiodothyronine (T3) Uptake 29.7 Bedside Glucose 137 Urine Color YELLOW Urine Clarity CLEAR Urine pH 6.0 Urine Specific [place] 1.024 Urine Ketones NEGATIVE Urine Nitrite NEGATIVE Urine Bilirubin NEGATIVE Urine Urobilinogen NEGATIVE Urine Leukocyte Esterase NEGATIVE Urine Hemoglobin NEGATIVE Urine Glucose 1+ H Urine Total Protein NEGATIVE Medications Medications Current Medications Acetaminophen (Ofirmev 1000mg/ 100ml Iv) 100 ml @ 400 mls/hr Q6H PRN IVPB PAIN Last administered on 08/31/17t 10:34; Admin Dose 400 MLS/HR; Start at 17:00 Morphine Sulfate (morphine) 2 mg Q2H PRN IV SEVERE PAIN LEVEL 7-10; Start at 17:30 Amlodipine Besylate (Norvasc) 5 mg QPM PO ; Start 08/30/17 at 21:00 Letrozole (Femara) 2.5 mg DAILY PO ; Start 08/31/17 at 09:00 Lisinopril (Zestril) 20 mg BID PO ; Start 08/30/17 at 21:00 Diagnostic Test (Pha) (Accu-Chek) 1 ea 02 XX ; Start 08/31/17 at 02:00 Hydralazine HCl (Apresoline) 10 mg Q6H PRN IV for SBP>160 or DBP>110; Start at 17:30 Ondansetron HCl 4 mg 4 mg Q4H PRN IV NAUSEA AND/OR VOMITING; Start 08/30/17 at 17:30 Dextrose/Sodium Chloride (D5-1/2ns) 1,000 ml @ 60 mls/hr [id number] IV Last administered on 08/31/17 04:39; Admin Dose 60 MLS/HR; Start 08/30/17 at 17:30 Famotidine (Pepcid Iv) 20 mg BID IV Last administered on 08/31/17 08:55; Admin Dose 20 MG; Start 08/30/17 at 21:00 Miscellaneous Information 1 ea NOTE XX ; Start 08/30/17 at 18:00 Glucose (Glutose) 15 gm Q15M PRN PO DECREASED GLUCOSE; Start 08/30/17 at 18:00 Glucose (Glutose) 22.5 gm Q15M PRN PO DECREASED GLUCOSE; Start 08/30/17 at 18: 00 Dextrose (D50w Syringe) 25 ml Q15M PRN IV DECREASED GLUCOSE; Start 08/30/17 at 18:00 Dextrose (D50w Syringe) 50 ml Q15M PRN IV DECREASED GLUCOSE; Start 08/30/17 at 18:00 Glucagon (Glucagen) 1 mg Q15M PRN IM DECREASED GLUCOSE; Start 08/30/17 at 18: 00 Glucose (Glutose) 15 gm Q15M PRN BUCCAL DECREASED GLUCOSE; Start 08/30/17 at 18:00 Levothyroxine Sodium 50 mcg 50 mcg DAILY@06 IV Last administered on 08/31/17 05:16; Admin Dose 50 MCG; Start 08/31/17 at 06:00 Magnesium Sulfate 100 ml @ 25 mls/hr ONCE ONCE IVPB ; Start 08/31/17 at 11:00 ; Stop 08/31/17 at 14:59 Calcium Gluconate/ Dextrose (Ca Gluc/D5W) 110 ml @ 110 mls/hr ONCE ONCE IVPB ; Start 08/31/17 at 11:00; Stop 08/31/17 at 11:59 NICKOLAS PERAZA Aug 31, 2017 11:24
--- NOTE | 2017-08-31 11:59 | PN ---
DATE: 08/31/2017 Postop day #1 status post total thyroidectomy for the cancer of the left thyroid. SUBJECTIVE: Complains of some pain in the throat and sometimes difficulty in initiating talk and al so painful swallowing her spit. OBJECTIVE: GENERAL: Awake, alert, oriented x3. VITAL SIGNS: Temperature maximum 99.1, heart rate 85, respiration 18, blood pressure 141/70, satura tion 98% on room air. Rhythm is intact. LABORATORY DATA: WBC increased to 14,000 with 85% neutrophils, hemoglobin 11.4, hematocrit 33.4. C hemistry shows decreased potassium 3.2, BUN and creatinine are normal. Hemoglobin A1c 6.2. Calcium at 6:00 a.m. today was 7.1 and repeated one was 6.9. Magnesium is 1.3. Thyroxine today is 11.3. ASSESSMENT: A 56-year-old female who underwent total thyroidectomy for cancer of the papillary canc er of the left-sided lobe. Postop today the patient's calcium is very low 7.1 and repeated is 6.9. Also, magnesium is low. PLAN: 1. Start patient on clear liquids. 2. The [place] hospitalist, Dr. Corona, is aware. She is going to start patient on calcium IV today an d replace the magnesium. We are going to repeat the serum calcium today a couple of times and tomor row and will observe the patient overnight at least. She is also be started on antihypertensive med ications that she is to be taking at home. Dictated By: TIFF PALM MD PS/NTS Conf#: [id number] DID#: [id number] CC: TIFF PALM MD;*EndCC*
[2017-08-31] MEDS: CALCIUM CARBONATE 500 MG CHEW TAB PO SCH ×2 (12:18→18:13)
[2017-08-31] MEDS ORDERED: POTASSIUM CHLORIDE 250 ML IVPB ONE (12:30)
[2017-08-31] MEDS ORDERED: LORAZEPAM 2 MG INJ IV PRN (18:00)
[2017-08-31] MEDS ORDERED: POTASSIUM CHLORIDE 20 MEQ POWDER FOR ORAL SOLN PO PRN ×3 (18:30)
[2017-08-31 19:07] LABS: CREATININE 0.41 mg/dl (0.44-1.00); MAGNESIUM 2.2 mg/dl (1.7-2.5)
[2017-08-31 19:33] LABS: POTASSIUM 2.8 mmol/L (3.5-5.1)
[2017-08-31] MEDS: hydrALAzine 20 MG INJ IV PRN (20:11)
[2017-08-31] MEDS ORDERED: hydrALAzine 20 MG INJ IV PRN (21:00)
[2017-08-31] MEDS ORDERED: AMLODIPINE 5 MG TAB PO SCH (21:00)
[2017-08-31] MEDS: AMLODIPINE 5 MG TAB PO SCH (21:00)
[2017-09-01] VITALS (9 sets, daily range): BP systolic 136–174; BP diastolic 62–82; PULSE 88–105; RESP 16–20
[2017-09-01] MEDS: hydrALAzine 20 MG INJ IV PRN ×4 (01:53→22:22)
[2017-09-01] MEDS ORDERED: CALCIUM GLUCONATE 10% 2 GM in DEXTROSE 5% 100 ML IVPB ONE (03:00)
[2017-09-01] MEDS ORDERED: CALCIUM GLUCONATE 10% 1 GM in DEXTROSE 5% 100 ML IVPB STA (03:10)
[2017-09-01] MEDS ORDERED: SODIUM CHLORIDE 0.9% 1L BAG IV* STA (03:11)
[2017-09-01] MEDS ORDERED: POTASSIUM CHLORIDE 50 ML IVPB PRN (03:30)
[2017-09-01] MEDS ORDERED: VANCOMYCIN IV PER PHARMACY XX SCH (03:30)
[2017-09-01] MEDS ORDERED: VANCOMYCIN 1.25 GM in DEXTROSE 5% 250 ML IVPB ONE (04:00)
[2017-09-01] MEDS ORDERED: LEVOTHYROXINE 75 MCG TAB PO SCH (06:00)
[2017-09-01] MEDS: AZTREONAM 2 GM in SOD CHLORIDE 0.9% 100 ML IVPB SCH ×3 (06:34→21:46)
[2017-09-01 07:50] LABS: BASOPHIL # 0.1 10^3/ul (0.0-0.1); BASOPHILS % 0.6 % (0.0-2.0); EOSINOPHILS # 0.1 10^3/ul (0.0-0.5); EOSINOPHILS % 0.3 % (0.0-7.0); HEMATOCRIT 37.2 % (37.0-47.0); HEMOGLOBIN 12.5 g/dl (12.0-16.0); LYMPHOCYTES # 1.7 10^3/ul (0.8-2.9); LYMPHOCYTES % 11.7 % (15.0-51.0); MEAN CORPUSCULAR HEMOGLOBIN 29.4 pg (29.0-33.0); MEAN CORPUSCULAR HGB CONC 33.6 g/dl (32.0-37.0); MEAN CORPUSCULAR VOLUME 87.5 fl (82.0-101.0); MEAN PLATELET VOLUME 11.1 fl (7.4-10.4); MONOCYTE # 1.2 10^3/ul (0.3-0.9); MONOCYTES % 8.3 % (0.0-11.0); NEUTROPHIL # 11.6 10^3/ul (1.6-7.5); NEUTROPHILS % 78.5 % (39.0-77.0); PLATELET COUNT 328 10^3/UL (140-415); RED BLOOD COUNT 4.25 10^6/ul (4.20-5.40); RED CELL DISTRIBUTION WIDTH 12.9 % (11.5-14.5); WHITE BLOOD COUNT 14.8 10^3/ul (4.8-10.8)
[2017-09-01] MEDS ORDERED: CALCIUM GLUCONATE 10% 1 GM in DEXTROSE 5% 100 ML IVPB ONE (08:00)
[2017-09-01 08:14] LABS: MAGNESIUM 1.8 mg/dl (1.7-2.5); PHOSPHORUS 4.2 mg/dl (2.5-4.9)
[2017-09-01 08:15] LABS: CALCIUM 7.2 mg/dl (8.4-10.2); CREATININE 0.43 mg/dl (0.44-1.00)
[2017-09-01] MEDS: CALCIUM CARBONATE 500 MG CHEW TAB PO SCH ×3 (09:03→18:00)
[2017-09-01] MEDS: FAMOTIDINE 20 MG INJ IV SCH ×2 (09:03→21:42)
[2017-09-01] MEDS: INSULIN ASPART [NOVOLOG] 3 ML PEN SC SCH ×4 (09:06→21:00)
--- NOTE | 2017-09-01 09:07 | RADRPT ---
PROCEDURE: XR Chest 1 View. CLINICAL INDICATION: Shortness of breath. TECHNIQUE: Single view of the chest was obtained. COMPARISON: CHEST 08/30/2017 FINDINGS: The cardiomediastinal silhouette is within normal limits. Elevated right hemidiaphragm is identified . No consolidations are identified. No pneumothorax is seen. Osseous structures are intact. IMPRESSION: Elevated right hemidiaphragm. Clear lungs. RPTAT: AA .Andrew Gr MD, MD Date Time Electronically viewed and signed by .Andrew Gr MD, on 09/01/2017 09:06 .P/
--- NOTE | 2017-09-01 10:53 | PN ---
Date/Time of Note Date/Time of Note DATE: 09/01/17 TIME: 10:24 Assessment/Plan VTE Prophylaxis VTE Prophylaxis Intervention: SCD's Lines/Catheters IV [facility] (from [facility] Peripheral IV Urinary Cath still in place: No Assessment/Plan Assessment/Plan 56 yo woman: 1. S/p total thyroidectomy with en bloc resection of a portion of the left strap muscles for papillary carcinoma of the thyroid with invasion of left strap muscles, POD#2 Patient still with ongoing dysphagia, she feels that she is choking when she eats, will discuss with surgery if this is just expected versus if we should be worried about recurrent laryngeal nerve injury? Replete calcium IV while unable to tolerate p.o., monitor calcium. Started on calcium carbonate but patient has not been tolerating p.o. so far. Repleting all electrolytes. Patient back on her Synthroid. Follow-up further recommendations from Surgery today. 2. Hypothyroidism: Status post thyroidectomy, total. Continue Synthroid. She will need her TFTs followed as an outpatient and adjustment with Synthroid as needed. 3. Hypertension: Continue home medication, pain control. Will add Vasotec IV to substitute for lisinopril and continue hydralazine as needed while unable to tolerate p.o. 4. Diabetes mellitus: Sliding scale insulin and diabetic diet. Resume metformin once tolerating p.o. 5. Hyperlipidemia: Continue statin therapy. 6. Electrolyte imbalance, with hypokalemia, hypocalcemia; repleting calcium, potassium IV. Daily check of electrolytes. Further repletion as needed. 7. S/p bilateral mastectomy after having recurrent breast cancer diagnosed in the contralateral left breast, 3 weeks ago. Remains stable 8. Low-grade temperature overnight, WBC up to 14 today, possibly old postoperative demargination, however patient was started on antibiotics overnight after blood cultures drawn. Will monitor and start de-escalating on the antibiotics in the next 24-48 hours if cultures remain negative and patient remains afebrile. CXR wnl Prophylaxis: SCDs for DVT prophylaxis, Pepcid for GI prophylaxis Disposition: Replete electrolytes IV, recheck labs in a.m., monitor closely dysphagia. Subjective 24 Hr Interval Summary Free Text/Dictation Patient still having significant dysphagia, she reports that she has a hard time swallowing because that she feels like she is choking, not much of pain. Low-grade temperature 100.1 noted overnight, patient was started on some IV antibiotics after akers culturing. If blood cultures remained negative we will start de-escalating on antibiotics within the next 24 hours. Still repleting calcium IV as patient cannot tolerate p.o. yet, also needs repletion for hypokalemia, follow-up further recommendations Exam/Review of Systems Vital Signs Vitals Vital Signs Date Time Temp Pulse Resp B/P Pulse Ox O2 Delivery O2 Flow Rate FiO2 09/01/17 08:28 98.5 107 18 166/73 96 09/01/17 05:15 Room Air 08/30/17 23:45 3.0 Intake and Output 08/31/17 08/31/17 09/01/17 15:00 23:00 07:00 Intake Total 810 ml 620 ml 120 ml Balance 810 ml 620 ml 120 ml Exam Constitutional: alert, oriented, well developed Neck: other (Status post total thyroidectomy, dressing in place.) Respiratory: clear to auscultation, normal air movement Cardiovascular: nl pulses, regular rate and rhythm Gastrointestinal: non-tender, soft Musculoskeletal: nl extremities to inspection, nl gait and stance Extremities: normal pulses, other (No edema, clubbing or cyanosis) Neurological: HEEL CASER II-XII intact, lethargic, nl mental status, nl speech Results Result Diagram: 09/01/17 0618 09/01/17 0618 Results 24 hrs Laboratory Tests Test 08/31/17 12:17 08/31/17 18:09 08/31/17 18:13 09/01/17 06:18 Bedside Glucose 113 138 Sodium Level 137 141 Potassium Level 2.8 *L 3.0 L Chloride Level 97 102 Carbon Dioxide Level 26 23 Anion Gap 17 H 19 H Blood Urea Nitrogen 8 9 Creatinine 0.41 L 0.43 L Glucose Level 139 135 Calcium Level 7.0 L 7.2 L Magnesium Level 2.2 1.8 White Blood Count 14.8 H Red Blood Count 4.25 Hemoglobin 12.5 Hematocrit 37.2 Mean Corpuscular Volume 87.5 Mean Corpuscular Hemoglobin 29.4 Mean Corpuscular Hemoglobin Concent 33.6 Red Cell Distribution Width 12.9 Platelet Count 328 Mean Platelet Volume 11.1 H Neutrophils % 78.5 H Lymphocytes % 11.7 L Monocytes % 8.3 Eosinophils % 0.3 Basophils % 0.6 Nucleated Red Blood Cells % 0.0 Neutrophils # 11.6 H Lymphocytes # 1.7 Monocytes # 1.2 H Eosinophils # 0.1 Basophils # 0.1 Nucleated Red Blood Cells # 0.0 Lactic Acid Level 1.3 Phosphorus Level 4.2 Test 09/01/17 09:01 Bedside Glucose 180 Medications Medications Current Medications Acetaminophen (Ofirmev 1000mg/ 100ml Iv) 100 ml @ 400 mls/hr Q6H PRN IVPB PAIN Last administered on 08/31/17 10:34; Admin Dose 400 MLS/HR; Start at 17:00 Morphine Sulfate (morphine) 2 mg Q2H PRN IV SEVERE PAIN LEVEL 7-10; Start at 17:30 Amlodipine Besylate (Norvasc) 5 mg QPM PO ; Start 08/30/17 at 21:00 Diagnostic Test (Pha) (Accu-Chek) 1 ea 02 XX ; Start 08/31/17 at 02:00 Ondansetron HCl (Zofran Inj) 4 mg Q4H PRN IV NAUSEA AND/OR VOMITING; Start at 17:30 Famotidine (Pepcid Iv) 20 mg BID IV Last administered on 09/01/17 09:03; Admin Dose 20 MG; Start 08/30/17 at 21:00 Miscellaneous Information 1 ea NOTE XX ; Start 08/30/17 at 18:00 Glucose (Glutose) 15 gm Q15M PRN PO DECREASED GLUCOSE; Start 08/30/17 at 18:00 Glucose (Glutose) 22.5 gm Q15M PRN PO DECREASED GLUCOSE; Start 08/30/17 at 18: 00 Dextrose (D50w Syringe) 25 ml Q15M PRN IV DECREASED GLUCOSE; Start 08/30/17 at 18:00 Dextrose (D50w Syringe) 50 ml Q15M PRN IV DECREASED GLUCOSE; Start 08/30/17 at 18:00 Glucagon (Glucagen) 1 mg Q15M PRN IM DECREASED GLUCOSE; Start 08/30/17 at 18: 00 Glucose (Glutose) 15 gm Q15M PRN BUCCAL DECREASED GLUCOSE; Start 08/30/17 at 18:00 Lorazepam (Ativan) 0.5 mg Q8H PRN IV ANXIETY; Start 08/31/17 at 18:00 Levothyroxine Sodium (Synthroid) 75 mcg DAILY@06 PO Last administered on 06:48; Admin Dose 75 MCG; Start 09/01/17 at 06:00 Hydralazine HCl 10 mg 10 mg Q4H PRN IV for SBP>160 or DBP>110 Last administered on 09/01/17 06:33; Admin Dose 10 MG; Start 08/31/17 at 19:00 Aztreonam 2 gm/ Sodium Chloride 100 ml @ 100 mls/hr Q8 IVPB Last administered on 09/01/17 06:34; Admin Dose 100 MLS/HR; Start 09/01/17 at 06:00 Vancomycin HCl (Vancocin) 250 ml @ 125 mls/hr Q12H IVPB ; Start 09/01/17 at 16 :00 Miscellaneous Information (*Rx Drug Level Order Reminder*) VANCOMYCIN TROUGH ON 08/14... ONCE ONCE XX ; Start 09/02/17 at 15:00; Stop 09/02/17 at 15:01 Procedures Procedures PROCEDURE: XR Chest 1 View. CLINICAL INDICATION: Shortness of breath. TECHNIQUE: Single view of the chest was obtained. COMPARISON: DR RUBIN 08/30/2017 FINDINGS: The cardiomediastinal silhouette is within normal limits. Elevated right hemidiaphragm is identified. No consolidations are identified. No pneumothorax is seen. Osseous structures are intact. IMPRESSION: Elevated right hemidiaphragm. Clear lungs. RPTAT: AA .Andrew Gr MD, Date Time Electronically viewed and signed by .Andrew Gr MD, on 09/01/2017 09:06 NICKOLAS PERAZA Sep 01, 2017 10:36
[2017-09-01] MEDS ORDERED: ENALAPRILAT 1.25 MG INJ ONE (10:54)
[2017-09-01] MEDS: ENALAPRILAT 1.25 MG INJ IV SCH ×2 (11:01→21:43)
[2017-09-01] MEDS: POTASSIUM CHLORIDE 40 MEQ in SOD CHLORIDE 0.9% 1,000 ML IV SCH (13:22)
[2017-09-01] MEDS: VANCOMYCIN 1 GM in NS 250 ML IVPB SCH (16:12)
[2017-09-01] MEDS: AMLODIPINE 5 MG TAB PO SCH (21:00)
--- NOTE | 2017-09-01 21:15 | PN ---
DATE: 09/01/2017 Status post total thyroidectomy. SUBJECTIVE: Complains of inability to swallow because of occurrence or feeling the sensation of cho ciaran, and also some pain upon swallowing. No vomiting. OBJECTIVE: GENERAL: Awake, alert, oriented x3. VITAL SIGNS: Temperature maximum 99.8, heart rate 103, respirations 18, blood pressure 157/72, satu ration 97% on room air. LABORATORY DATA: WBC is 14,800 with 78% neutrophils ____ shift to the left, hemoglobin 12.5, hemato crit 37.2. Chemistry: Today, sodium normal, potassium low, 3, BUN 19, creatinine 0.43, normal calc ium, 7.2, which is low. HEART: Regular. LUNGS: Clear. The patient's voice is not hoarse, is not whispering, appears to be almost normal. ____, patient complains of some difficulty swallowing and feeling the sensation of choking, so refus es to drink or eat anything. Dressing was changed. Fewer sponges were semi-soaked with drainage. Cirilo drain still is in place. We will keep it until tomorrow. If there is not much drainage, I will remove it tomorrow, on . Internal medicine, Dr. Corona, is following. PLAN: Continue the patient's current care with replacement of potassium and calcium, and also IV me dication for high blood pressure, hoping that the choking sensation and swallowing get better by umer orrow or the day after tomorrow. ____ the patient ____ in the hospital. Dictated By: TIFF PALM MD PS/NTS Conf#: [id number] DID#: [id number] CC: JEFFREY PIERRE MD;*EndCC*
[2017-09-02] VITALS (11 sets, daily range): BP systolic 140–183; BP diastolic 61–90; PULSE 79–103; RESP 16–19
[2017-09-02] MEDS: POTASSIUM CHLORIDE 40 MEQ in SOD CHLORIDE 0.9% 1,000 ML IV SCH ×3 (00:15→12:06)
[2017-09-02] MEDS: ACCU-CHEK XX SCH ×2 (00:36→01:13)
[2017-09-02] MEDS: hydrALAzine 20 MG INJ IV PRN ×2 (03:56→20:08)
[2017-09-02] MEDS: VANCOMYCIN 1 GM in NS 250 ML IVPB SCH ×2 (04:27→16:21)
[2017-09-02 05:19] LABS: BASOPHIL # 0.1 10^3/ul (0.0-0.1); BASOPHILS % 0.7 % (0.0-2.0); EOSINOPHILS # 0.2 10^3/ul (0.0-0.5); EOSINOPHILS % 1.9 % (0.0-7.0); HEMATOCRIT 31.8 % (37.0-47.0); LYMPHOCYTES # 2.1 10^3/ul (0.8-2.9); LYMPHOCYTES % 17.8 % (15.0-51.0); MEAN CORPUSCULAR HEMOGLOBIN 29.9 pg (29.0-33.0); MEAN CORPUSCULAR HGB CONC 34.6 g/dl (32.0-37.0); MEAN CORPUSCULAR VOLUME 86.4 fl (82.0-101.0); MEAN PLATELET VOLUME 10.7 fl (7.4-10.4); MONOCYTE # 1.1 10^3/ul (0.3-0.9); MONOCYTES % 9.6 % (0.0-11.0); NEUTROPHIL # 8.2 10^3/ul (1.6-7.5); NEUTROPHILS % 69.5 % (39.0-77.0); PLATELET COUNT 306 10^3/UL (140-415); RED BLOOD COUNT 3.68 10^6/ul (4.20-5.40); RED CELL DISTRIBUTION WIDTH 13.2 % (11.5-14.5); WHITE BLOOD COUNT 11.8 10^3/ul (4.8-10.8)
[2017-09-02] MEDS ORDERED: LEVOTHYROXINE 100 MCG VIAL IV SCH (06:00)
[2017-09-02] MEDS: AZTREONAM 2 GM in SOD CHLORIDE 0.9% 100 ML IVPB SCH ×2 (06:42→15:24)
[2017-09-02] MEDS: INSULIN ASPART [NOVOLOG] 3 ML PEN SC SCH ×4 (07:50→20:17)
[2017-09-02] MEDS: ENALAPRILAT 1.25 MG INJ IV SCH (08:41)
[2017-09-02] MEDS: CALCIUM CARBONATE 500 MG CHEW TAB PO SCH ×4 (08:41→17:52)
[2017-09-02 09:10] LABS: CREATININE 0.42 mg/dl (0.44-1.00); POTASSIUM 3.2 mmol/L (3.5-5.1)
[2017-09-02] MEDS: FAMOTIDINE 20 MG INJ IV SCH (09:54)
[2017-09-02] MEDS ORDERED: MAGNESIUM SULFATE 4 GM/100 ML 100 ML IVPB ONE (12:30)
[2017-09-02] MEDS ORDERED: POTASSIUM CHLORIDE 20 MEQ POWDER FOR ORAL SOLN PO ONE (12:30)
--- NOTE | 2017-09-02 12:56 | PN ---
Date/Time of Note Date/Time of Note DATE: 17 TIME: 12:49 Assessment/Plan VTE Prophylaxis VTE Prophylaxis Intervention: SCD's Lines/Catheters IV C[facility]ter Type (from [facility]): Peripheral IV Urinary Cath still in place: No Assessment/Plan Assessment/Plan 56 yo woman: 1. 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 calcium to 1000 p.o. Q8hr Repleting all electrolytes. Patient back on her Synthroid. Follow-up further recommendations from Surgery today. Dr Wylie, the patient's primary color print inspector will kindly see patient today. 2. Hypothyroidism: Status post thyroidectomy, total. Continue Synthroid at 75 mcg po daily. 3. Hypertension: Continue home medication, Lisinopril and Norvasc. Continue hydralazine as needed while unable to tolerate p.o. 4. Diabetes mellitus: Sliding scale insulin and diabetic diet. Resume metformin once tolerating p.o. 5. Hyperlipidemia: Continue statin therapy. 6. Electrolyte imbalance, with hypokalemia, hypocalcemia; repleting calcium, potassium IV. Daily check of electrolytes. Further repletion as needed. 7. S/p bilateral mastectomy after having recurrent breast cancer diagnosed in the contralateral left breast, 3 weeks ago. Remains stable 8. Low-grade temperature POD#1, resolving, WBC trending down Possibly postoperative demargination, however patient has been started on antibiotics, Blood cx NGTD, if remain negative in the next 24 to 48 hr, will discontinue. Prophylaxis: SCDs for DVT prophylaxis, Pepcid for GI prophylaxis Disposition: Replete electrolytes IV, appreciate recommendations from Endocrinology. Recheck labs in a.m., monitor closely dysphagia. Subjective 24 Hr Interval Summary Free Text/Dictation Patient feeling better today, for the first day she is able to tolerate some fluids, Jell-O and popsicles Low-grade elevated temperature noted, however temperature curve coming down. Repleting electrolytes Exam/Review of Systems Vital Signs Vitals Vital Signs Date Time Temp Pulse Resp B/P Pulse Ox O2 Delivery O2 Flow Rate FiO2 09/02/17 08:46 98.0 09/02/17 08:00 103 18 162/70 97 09/01/17 22:54 Room Air 08/30/17 23:45 3.0 Intake and Output 09/01/17 09/01/17 09/02/17 15:00 23:00 07:00 Intake Total 610 ml 430 ml 1170 ml Output Total 1350 ml Balance -740 ml 430 ml 1170 ml Exam Constitutional: alert, oriented, well developed Respiratory: clear to auscultation, normal air movement Cardiovascular: nl pulses, regular rate and rhythm Gastrointestinal: non-tender, soft Musculoskeletal: nl extremities to inspection Extremities: normal pulses, other (No edema, clubbing or cyanosis) Neurological: MANAGEMENT ASSOCIATE II-XII intact, nl mental status, nl speech, nl strength Results Result Diagram: 09/02/176 09/02/17 0446 Results 24 hrs Laboratory Tests Test 09/01/17 13:21 09/01/17 17:38 09/01/17 21:39 09/02/17 04:46 Bedside Glucose 134 120 110 White Blood Count 11.8 #H Red Blood Count 3.68 L Hemoglobin 11.0 L Hematocrit 31.8 L Mean Corpuscular Volume 86.4 Mean Corpuscular Hemoglobin 29.9 Mean Corpuscular Hemoglobin Concent 34.6 Red Cell Distribution Width 13.2 Platelet Count 306 Mean Platelet Volume 10.7 H Neutrophils % 69.5 Lymphocytes % 17.8 Monocytes % 9.6 Eosinophils % 1.9 Basophils % 0.7 Nucleated Red Blood Cells % 0.0 Neutrophils # 8.2 H Lymphocytes # 2.1 Monocytes # 1.1 H Eosinophils # 0.2 Basophils # 0.1 Nucleated Red Blood Cells # 0.0 Sodium Level 142 Potassium Level 3.2 L Chloride Level 108 Carbon Dioxide Level 20 L Anion Gap 17 H Blood Urea Nitrogen 15 Creatinine 0.42 L Glucose Level 106 Calcium Level 6.0 L Magnesium Level 1.6 L Test 09/02/17 08:38 09/02/17 11:57 Bedside Glucose 96 141 Medications Medications Current Medications Acetaminophen (Ofirmev 1000mg/ 100ml Iv) 100 ml @ 400 mls/hr Q6H PRN IVPB PAIN Last administered on 08/31/17t 10:34; Admin Dose 400 MLS/HR; Start at 17:00 Morphine Sulfate (morphine) 2 mg Q2H PRN IV SEVERE PAIN LEVEL 7-10; Start at 17:30 Amlodipine Besylate (Norvasc) 5 mg QPM PO ; Start 08/30/17 at 21:00 Diagnostic Test (Pha) (Accu-Chek) 1 ea 02 XX ; Start 08/31/17 at 02:00 Ondansetron HCl (Zofran Inj) 4 mg Q4H PRN IV NAUSEA AND/OR VOMITING; Start at 17:30 Famotidine (Pepcid Iv) 20 mg BID IV Last administered on 09/02/17 09:54; Admin Dose 20 MG; Start 08/30/17 at 21:00 Miscellaneous Information 1 ea NOTE XX ; Start 08/30/17 at 18:00 Glucose (Glutose) 15 gm Q15M PRN PO DECREASED GLUCOSE; Start 08/30/17 at 18:00 Glucose (Glutose) 22.5 gm Q15M PRN PO DECREASED GLUCOSE; Start 08/30/17 at 18: 00 Dextrose (D50w Syringe) 25 ml Q15M PRN IV DECREASED GLUCOSE; Start 08/30/17 at 18:00 Dextrose (D50w Syringe) 50 ml Q15M PRN IV DECREASED GLUCOSE; Start 08/30/17 at 18:00 Glucagon (Glucagen) 1 mg Q15M PRN IM DECREASED GLUCOSE; Start 08/30/17 at 18: 00 Glucose (Glutose) 15 gm Q15M PRN BUCCAL DECREASED GLUCOSE; Start 08/30/17 at 18:00 Lorazepam (Ativan) 0.5 mg Q8H PRN IV ANXIETY; Start 08/31/17 at 18:00 Levothyroxine Sodium (Synthroid) 75 mcg DAILY@06 PO Last administered on 06:48; Admin Dose 75 MCG; Start 09/01/17 at 06:00; Status Future Hold Hydralazine HCl 10 mg 10 mg Q4H PRN IV for SBP>160 or DBP>110 Last administered on 09/02/17 03:56; Admin Dose 10 MG; Start 08/31/17 at 19:00 Aztreonam 2 gm/ Sodium Chloride 100 ml @ 100 mls/hr Q8 IVPB Last administered on 09/02/17 06:42; Admin Dose 100 MLS/HR; Start 09/01/17 at 06:00 Vancomycin HCl (Vancocin) 250 ml @ 125 mls/hr Q12H IVPB Last administered on 09/02/17 04:27; Admin Dose 125 MLS/HR; Start 09/01/17 at 16:00 Miscellaneous Information (*Rx Drug Level Order Reminder*) VANCOMYCIN TROUGH ON 08/14... ONCE ONCE XX ; Start 09/02/17 at 15:00; Stop 09/02/17 at 15:01 Enalaprilat (Vasotec Iv) 1.25 mg BID IV Last administered on 09/02/17 08:41; Admin Dose 1.25 MG; Start 09/01/17 at 11:00 Diagnostic Test (Pha) 1 ea 1 ea 02 XX ; Start 09/02/17 at 02:00 Potassium Chloride/Sodium Chloride (KCl/NS) 1,020 ml @ 80 mls/hr [id number] IV Last administered on 09/02/17 06:42; Admin Dose 80 MLS/HR; Start 09/01/17 at 11:30 Levothyroxine Sodium 50 mcg 50 mcg DAILY@06 IV Last administered on 09/02/17 06:41; Admin Dose 50 MCG; Start 09/02/17 at 06:00 Magnesium Sulfate 100 ml @ 25 mls/hr ONCE ONCE IVPB ; Start 09/02/17 at 12:30 ; Stop 09/02/17 at 16:29 Calcium Gluconate/ Dextrose (Ca Gluc/D5W) 120 ml @ 60 mls/hr ONCE ONCE IVPB ; Start 09/02/17 at 13:00; Stop 09/02/17 at 14:59 NICKOLAS PERAZA Sep 02, 2017 12:56
[2017-09-02] MEDS ORDERED: CALCIUM GLUCONATE 10% 2 GM in DEXTROSE 5% 100 ML IVPB ONE (13:00)
--- NOTE | 2017-09-02 13:25 | CONS ---
Date/Time of Note Date/Time of Note DATE: 09/02/17 TIME: 13:19 Assessment/Plan Assessment/Plan Problems: (1) Status post complete thyroidectomy Onset Date: ~ 08/30/2017 Status: Acute Comment: At this time she has developed rather significant hypocalcemia postoperatively. It is unclear at this time the duration that she will have the hypoCaleceMia. For now she will be on oral calcium supplementation and have a brief course of IV calcium supplementation. In addition she is appropriate to treat with calcitriol. When her calcium levels are starting to come up then I can follow her as an outpatient and do fine-tuning from the office (2) Papillary adenocarcinoma of thyroid Status: Acute Comment: She is be on thyroid hormone suppressive therapy. Given that she will absolutely need radioactive iodine ablation postoperatively given her age and the size of the tumor diagnosis she will be on liothyronine 25 mcg twice daily as her suppression. After she has had the treatment then she will be converted over to the more traditional levothyroxine suppressive therapy (3) Hypocalcemia Status: Acute Comment: As above (4) Hypomagnesemia Status: Acute Comment: Correct IV. This can have an effect on the calcium (5) DM type 2 with diabetic dyslipidemia Status: Chronic Comment: Being managed (6) HTN (hypertension) Status: Chronic Comment: Being managed Qualifiers: Qualified Code: I10 - Essential hypertension Consultation Date/Type/Reason Admit Date/Time Aug 30, 2017 at 10:48 Date of Consultation: Sep 02, 2017 Type of Consultation: Endocrinology Reason for Consultation Papillary carcinoma thyroid greater than 10 mm at diagnosis; postoperative hypocalcemia Referring Provider: JEFFREY PIERRE MD Hx of Present Illness Charzach 56-year-old young lady who in the last year is been diagnosed with right breast cancer status post bilateral mastectomy. She was then found to have a thyroid mass and FNA biopsy this was consistent with papillary carcinoma thyroid. She was admitted on the for elective thyroidectomy. Postoperatively she has had symptomatic hypocalcemia. Constitutional: no complaints Eyes: no complaints ENT: no complaints Respiratory: no complaints Cardiovascular: no complaints Gastrointestinal: no complaints Genitourinary: no complaints Musculoskeletal: no complaints Endocrine: other (Positive carpopedal spasm) Past Medical History Medical History: cancer (right breast cancer S/P bilateral mastectomy), diabetes (type 2 DM with dyslipidemia), high cholesterol, hypertension, hypothyroid Past Surgical History Past Surgical Hx: appendectomy, cholecystectomy, other (bilateral mastectomy) Family History Significant Family History: other (Negative for thyroid cancer negative for parathyroid disturbances) Social History Alcohol Use: none Smoking Status: Never smoker Drug Use: none Exam/Review of Systems Vital Signs Vitals Vital Signs Date Time Temp Pulse Resp B/P Pulse Ox O2 Delivery O2 Flow Rate FiO2 09/02/17 08:46 98.0 09/02/17 08:00 103 18 162/70 97 09/01/17 22:54 Room Air 08/30/17 23:45 3.0 Intake and Output 09/01/17 09/01/17 09/02/17 15:00 23:00 07:00 Intake Total 610 ml 430 ml 1170 ml Output Total 1350 ml Balance -740 ml 430 ml 1170 ml Exam Constitutional: alert, oriented Psych: nl mood/affect, no complaints Head: atraumatic, normocephalic Eyes: EOMI, PERRL, nl conjunctiva, nl lids, nl sclera Neck: other (Anterior midline neck bandage), supple Respiratory: clear to auscultation, normal air movement Cardiovascular: nl pulses, regular rate and rhythm Gastrointestinal: nl liver, spleen, non-tender, soft Musculoskeletal: nl extremities to inspection, nl gait and stance (Patient is ambulating in the room) Neurological: CASE COORDINATOR II-XII intact, nl mental status, nl speech, nl strength ( Positive carpopedal spasm) Results Result Diagram: 09/02/176 09/02/176 Results 24 hrs Laboratory Tests Test 09/01/17 13:21 09/01/17 17:38 09/01/17 21:39 09/02/17 04:46 Bedside Glucose 134 120 110 White Blood Count 11.8 #H Red Blood Count 3.68 L Hemoglobin 11.0 L Hematocrit 31.8 L Mean Corpuscular Volume 86.4 Mean Corpuscular Hemoglobin 29.9 Mean Corpuscular Hemoglobin Concent 34.6 Red Cell Distribution Width 13.2 Platelet Count 306 Mean Platelet Volume 10.7 H Neutrophils % 69.5 Lymphocytes % 17.8 Monocytes % 9.6 Eosinophils % 1.9 Basophils % 0.7 Nucleated Red Blood Cells % 0.0 Neutrophils # 8.2 H Lymphocytes # 2.1 Monocytes # 1.1 H Eosinophils # 0.2 Basophils # 0.1 Nucleated Red Blood Cells # 0.0 Sodium Level 142 Potassium Level 3.2 L Chloride Level 108 Carbon Dioxide Level 20 L Anion Gap 17 H Blood Urea Nitrogen 15 Creatinine 0.42 L Glucose Level 106 Calcium Level 6.0 L Magnesium Level 1.6 L Test 09/02/17 08:38 09/02/17 11:57 Bedside Glucose 96 141 Medications Medications Current Medications Acetaminophen (Ofirmev 1000mg/ 100ml Iv) 100 ml @ 400 mls/hr Q6H PRN IVPB PAIN Last administered on 08/31/17 10:34; Admin Dose 400 MLS/HR; Start at 17:00 Morphine Sulfate (morphine) 2 mg Q2H PRN IV SEVERE PAIN LEVEL 7-10; Start at 17:30 Amlodipine Besylate (Norvasc) 5 mg QPM PO ; Start 08/30/17 at 21:00 Diagnostic Test (Pha) (Accu-Chek) 1 ea 02 XX ; Start 08/31/17 at 02:00 Ondansetron HCl (Zofran Inj) 4 mg Q4H PRN IV NAUSEA AND/OR VOMITING; Start at 17:30 Famotidine (Pepcid Iv) 20 mg BID IV Last administered on 09/02/17 09:54; Admin Dose 20 MG; Start 08/30/17 at 21:00 Miscellaneous Information 1 ea NOTE XX ; Start 08/30/17 at 18:00 Glucose (Glutose) 15 gm Q15M PRN PO DECREASED GLUCOSE; Start 08/30/17 at 18:00 Glucose (Glutose) 22.5 gm Q15M PRN PO DECREASED GLUCOSE; Start 08/30/17 at 18: 00 Dextrose (D50w Syringe) 25 ml Q15M PRN IV DECREASED GLUCOSE; Start 08/30/17 at 18:00 Dextrose (D50w Syringe) 50 ml Q15M PRN IV DECREASED GLUCOSE; Start 08/30/17 at 18:00 Glucagon (Glucagen) 1 mg Q15M PRN IM DECREASED GLUCOSE; Start 08/30/17 at 18: 00 Glucose (Glutose) 15 gm Q15M PRN BUCCAL DECREASED GLUCOSE; Start 08/30/17 at 18:00 Lorazepam (Ativan) 0.5 mg Q8H PRN IV ANXIETY; Start 08/31/17 at 18:00 Hydralazine HCl 10 mg 10 mg Q4H PRN IV for SBP>160 or DBP>110 Last administered on 09/02/17 03:56; Admin Dose 10 MG; Start 08/31/17 at 19:00 Aztreonam 2 gm/ Sodium Chloride 100 ml @ 100 mls/hr Q8 IVPB Last administered on 09/02/17 06:42; Admin Dose 100 MLS/HR; Start 09/01/17 at 06:00 Vancomycin HCl (Vancocin) 250 ml @ 125 mls/hr Q12H IVPB Last administered on 09/02/17 04:27; Admin Dose 125 MLS/HR; Start 09/01/17 at 16:00 Miscellaneous Information (*Rx Drug Level Order Reminder*) VANCOMYCIN TROUGH ON 08/14... ONCE ONCE XX ; Start 09/02/17 at 15:00; Stop 09/02/17 at 15:01 Enalaprilat (Vasotec Iv) 1.25 mg BID IV Last administered on 09/02/17 08:41; Admin Dose 1.25 MG; Start 09/01/17 at 11:00 Diagnostic Test (Pha) 1 ea 1 ea 02 XX ; Start 09/02/17 at 02:00 Potassium Chloride 40 meq/ Sodium Chloride 1,020 ml @ 80 mls/hr [id number] IV Last administered on 09/02/17 06:42; Admin Dose 80 MLS/HR; Start 09/01/17 at 11:30 Magnesium Sulfate 100 ml @ 25 mls/hr ONCE ONCE IVPB ; Start 09/02/17 at 12:30 ; Stop 09/02/17 at 16:29 Calcium Gluconate/ Dextrose (Ca Gluc/D5W) 120 ml @ 60 mls/hr ONCE ONCE IVPB ; Start 09/02/17 at 13:00; Stop 09/02/17 at 14:59 Calcitriol (Calcitriol) 1 mcg ONCE ONCE IV ; Start 09/02/17 at 14:00; Stop at 14:01 Calcitriol (Rocaltrol) 0.25 mcg BID PO ; Start 09/02/17 at 21:00 Liothyronine Sodium (Cytomel) 25 mcg BID PO ; Start 09/02/17 at 21:00 JONI HOGAN MD Sep 02, 2017 13:25
[2017-09-02] MEDS ORDERED: CALCITRIOL 1 MCG INJ IV ONE (14:00)
[2017-09-02] MEDS: HYDROCHLOROTHIAZIDE 12.5 MG CAP PO SCH (15:14)
[2017-09-02] MEDS ORDERED: ACETAMINOPHEN 325 MG TAB PO PRN (19:30)
[2017-09-02] MEDS ORDERED: LEVOFLOXACIN 750MG/D5W (PMX) 150 ML IVPB SCH (19:30)
--- NOTE | 2017-09-02 19:44 | PN ---
DATE: 09/02/2017 Status post total thyroidectomy for cancer, postoperative day #3, status post development of hypocal cemia. SUBJECTIVE: Today, she feels better. She states that she has been able to swallow clear liquids wi th no choking and pain is much less. Voice appears almost normal. VITAL SIGNS: Temperature, 1 episode 102, second episode 98, heart rate 95, respirations 18, blood p ressure 162/70, saturation 97% on room air. LABORATORY DATA: WBC decreasing to 11,800 with 69% segmented, normal differential, hemoglobin 11, h ematocrit 31.8. Chemistry: Potassium low 3.3, . BUN and creatinine are normal. Calcium cont inuously still low today, 6. Magnesium 1.6. (Dr. Corona, the hospitalist is avail and managing that). PHYSICAL EXAMINATION: GENERAL: Awake, alert, oriented x3, in no acute distress. RESPIRATORY: Good. NECK: Wound dressing changed. Minimal drainage, 2 Cirilo drains were removed. ABDOMEN: Soft. ASSESSMENT AND PLAN: A 56-year-old patient who underwent total thyroidectomy for cancer of the left thyroid, which was papillary carcinoma, later on proved to be also multifocal in the isthmus site i n the right lobe as well. The patient developed postop hypocalcemia down to 6, required IV calcium. Endocrinology consultations from Dr. Wylie was obtained. He is managing and hypocalcemia and othe r problems of the patient. In regards to the endocrinology practice, from internal medicine, he is handling the hypomagnesemia and hypokalemia. From surgical point of view, I am managing the patient 's dressing. The wound is clean, dressing is to be changed p.r.n. if there is too much drainage. A dvance diet to soft diet. The patient is to be discharged per Dr. Corona's decision when it is approp riate. From a surgical point of view, any time the patient can be discharged. Dictated By: TIFF PALM MD PS/NTS Conf#: [id number] DID#: [id number] CC: JEFFREY PIERRE MD;*EndCC*
[2017-09-02] MEDS: LIOTHYRONINE 25 MCG TAB PO SCH (20:07)
[2017-09-02] MEDS: LISINOPRIL 20 MG TAB PO SCH (20:08)
[2017-09-02] MEDS: AMLODIPINE 5 MG TAB PO SCH (20:08)
[2017-09-02] MEDS ORDERED: CALCITRIOL 0.25 MCG CAP PO SCH (21:00)
[2017-09-02] MEDS: LETROZOLE 2.5 MG TAB PO SCH (21:35)
[2017-09-02] MEDS: VANCOMYCIN 1.25 GM in SODIUM CHLORIDE 0.45 % 250 ML IVPB SCH (22:30)
[2017-09-03 00:54] VITALS: BP 148/72; PULSE 94; RESP 16
[2017-09-03] MEDS: POTASSIUM CHLORIDE 40 MEQ in SOD CHLORIDE 0.9% 1,000 ML IV SCH ×2 (01:45→04:53)
[2017-09-03] MEDS: ACCU-CHEK XX SCH (01:55)
[2017-09-03 02:38] VITALS: BP 156/75; RESP 19
[2017-09-03] MEDS: VANCOMYCIN 1.25 GM in SODIUM CHLORIDE 0.45 % 250 ML IVPB SCH ×3 (04:54→21:49)
[2017-09-03 06:01] LABS: BASOPHIL # 0.1 10^3/ul (0.0-0.1); BASOPHILS % 0.8 % (0.0-2.0); EOSINOPHILS # 0.4 10^3/ul (0.0-0.5); EOSINOPHILS % 5.7 % (0.0-7.0); HEMATOCRIT 31.1 % (37.0-47.0); HEMOGLOBIN 10.5 g/dl (12.0-16.0); LYMPHOCYTES % 27.1 % (15.0-51.0); MEAN CORPUSCULAR HEMOGLOBIN 29.3 pg (29.0-33.0); MEAN CORPUSCULAR HGB CONC 33.8 g/dl (32.0-37.0); MEAN CORPUSCULAR VOLUME 86.9 fl (82.0-101.0); MEAN PLATELET VOLUME 10.5 fl (7.4-10.4); MONOCYTE # 0.7 10^3/ul (0.3-0.9); MONOCYTES % 9.9 % (0.0-11.0); NEUTROPHIL # 4.1 10^3/ul (1.6-7.5); NEUTROPHILS % 56.2 % (39.0-77.0); PLATELET COUNT 308 10^3/UL (140-415); RED BLOOD COUNT 3.58 10^6/ul (4.20-5.40); RED CELL DISTRIBUTION WIDTH 13.1 % (11.5-14.5); WHITE BLOOD COUNT 7.4 10^3/ul (4.8-10.8)
[2017-09-03 06:53] LABS: MAGNESIUM 1.5 mg/dl (1.7-2.5); PHOSPHORUS 3.9 mg/dl (2.5-4.9)
[2017-09-03 07:04] LABS: ALBUMIN 3.3 g/dl (3.3-4.9); ALBUMIN/GLOBULIN RATIO 0.82; BILIRUBIN,INDIRECT 0.6 mg/dl (0-1.1); BILIRUBIN,TOTAL 0.6 mg/dl (0.2-1.3); CREATININE 0.39 mg/dl (0.44-1.00); POTASSIUM 3.3 mmol/L (3.5-5.1); TOTAL PROTEIN 7.3 g/dl (6.1-8.1)
[2017-09-03 07:10] LABS: CALCIUM 5.1 mg/dl (8.4-10.2)
[2017-09-03] MEDS: INSULIN ASPART [NOVOLOG] 3 ML PEN SC SCH ×4 (07:50→21:00)
[2017-09-03 07:55] VITALS: BP_SYST 112; BP_SYST 159; BP_DIAS 55; BP_DIAS 80; RESP 18
--- NOTE | 2017-09-03 08:24 | CONS ---
Date/Time of Note Date/Time of Note DATE: 09/03/17 TIME: 08:21 Assessment/Plan Assessment/Plan Chief Complaint/Hosp Course Aleisha 56-year-old young lady who in the last year is been diagnosed with right breast cancer status post bilateral mastectomy. She was then found to have a thyroid mass and FNA biopsy this was consistent with papillary carcinoma thyroid. She was admitted on the for elective thyroidectomy. Postoperatively she has had symptomatic hypocalcemia. Problems: (1) Status post complete thyroidectomy Onset Date: ~ 08/30/2017 Status: Acute Comment: She is stable postop with the exception of the postoperative complication of hypocalcemia. (2) Hypocalcemia Status: Acute Comment: This is actually worsened. And get a give more IV calcitriol and more IV calcium. In addition of adjusting which oral calcium preparation she is getting. Were correcting the magnesium but this is a tricky thing is a interaction with the calcium can at times be disadvantageous (3) Hypomagnesemia Status: Acute Comment: Replace (4) DM type 2 with diabetic dyslipidemia Status: Chronic Comment: Adequate control (5) HTN (hypertension) Status: Chronic Comment: Adequate control Qualifiers: Hypertension type: essential hypertension Qualified Code: I10 - Essential hypertension (6) Papillary adenocarcinoma of thyroid Status: Acute Comment: On suppressive therapy Consultation Date/Type/Reason Admit Date/Time Aug 30, 2017 at 10:48 Initial Consult Date 09/02/17 Type of Consultation: Endocrinology Reason for Consultation Postop hypocalcemia; hypomagnesemia; hypokalemia; papillary carcinoma thyroid without apparent distant spread Referring Provider: JEFFREY PIERRE MD 24 HR Interval Summary Free Text/Dictation Patient reports that she feels like her calcium is lower and she is having significant hand spasms Detailed Summary Respiratory: no complaints Cardiovascular: no complaints Gastrointestinal: no complaints Exam/Review of Systems Vital Signs Vitals Vital Signs Date Time Temp Pulse Resp B/P Pulse Ox O2 Delivery O2 Flow Rate FiO2 09/03/17 07:55 98.1 84 18 159/80 94 09/03/17 00:54 Room Air 08/30/17 23:45 3.0 Intake and Output 09/02/17 09/02/17 09/03/17 15:00 23:00 07:00 Intake Total 100 ml 1220 ml 870 ml Balance 100 ml 1220 ml 870 ml Exam Constitutional: alert, oriented Cardiovascular: nl pulses, regular rate and rhythm Extremities: other (Positive carpals pedal spasm) Results Result Diagram: 09/03/17 0507 09/03/17 0507 Results 24 hrs Laboratory Tests Test 09/02/17 08:38 09/02/17 11:57 09/02/17 14:39 09/02/17 17:51 Bedside Glucose 96 141 107 Vancomycin Level Trough < 5.0 L Test 09/02/17 20:06 09/03/17 01:53 09/03/17 05:07 Bedside Glucose 236 H 112 White Blood Count 7.4 # Red Blood Count 3.58 L Hemoglobin 10.5 L Hematocrit 31.1 L Mean Corpuscular Volume 86.9 Mean Corpuscular Hemoglobin 29.3 Mean Corpuscular Hemoglobin Concent 33.8 Red Cell Distribution Width 13.1 Platelet Count 308 Mean Platelet Volume 10.5 H Neutrophils % 56.2 Lymphocytes % 27.1 Monocytes % 9.9 Eosinophils % 5.7 Basophils % 0.8 Nucleated Red Blood Cells % 0.0 Neutrophils # 4.1 Lymphocytes # 2.0 Monocytes # 0.7 Eosinophils # 0.4 Basophils # 0.1 Nucleated Red Blood Cells # 0.0 Sodium Level 142 Potassium Level 3.3 L Chloride Level 105 Carbon Dioxide Level 23 Anion Gap 17 H Blood Urea Nitrogen 9 Creatinine 0.39 L Glucose Level 112 Calcium Level 5.1 *L Phosphorus Level 3.9 Magnesium Level 1.5 L Total Bilirubin 0.6 Direct Bilirubin 0.00 Indirect Bilirubin 0.6 Aspartate Amino Transf (AST/SGOT) 25 Alanine Aminotransferase (ALT/SGPT) 34 Alkaline Phosphatase 91 Total Protein 7.3 Albumin 3.3 Globulin 4.00 H Albumin/Globulin Ratio 0.82 Medications Medications Current Medications Morphine Sulfate (morphine) 2 mg Q2H PRN IV SEVERE PAIN LEVEL 7-10; Start at 17:30 Amlodipine Besylate (Norvasc) 5 mg QPM PO Last administered on 09/02/17t 20:08 ; Admin Dose 5 MG; Start 08/30/17 at 21:00 Ondansetron HCl (Zofran Inj) 4 mg Q4H PRN IV NAUSEA AND/OR VOMITING; Start at 17:30 Miscellaneous Information 1 ea NOTE XX ; Start 08/30/17 at 18:00 Glucose (Glutose) 15 gm Q15M PRN PO DECREASED GLUCOSE; Start 08/30/17 at 18:00 Glucose (Glutose) 22.5 gm Q15M PRN PO DECREASED GLUCOSE; Start 08/30/17 at 18: 00 Dextrose (D50w Syringe) 25 ml Q15M PRN IV DECREASED GLUCOSE; Start 08/30/17 at 18:00 Dextrose (D50w Syringe) 50 ml Q15M PRN IV DECREASED GLUCOSE; Start 08/30/17 at 18:00 Glucagon (Glucagen) 1 mg Q15M PRN IM DECREASED GLUCOSE; Start 08/30/17 at 18: 00 Glucose (Glutose) 15 gm Q15M PRN BUCCAL DECREASED GLUCOSE; Start 08/30/17 at 18:00 Lorazepam (Ativan) 0.5 mg Q8H PRN IV ANXIETY; Start 08/31/17 at 18:00 Hydralazine HCl (Apresoline) 10 mg Q4H PRN IV for SBP>160 or DBP>110 Last administered on 09/02/17 20:08; Admin Dose 10 MG; Start 08/31/17 at 19:00 Diagnostic Test (Pha) (Accu-Chek) 1 ea 02 XX Last administered on 09/03/17 01 :55; Admin Dose 1 EA; Start 09/02/17 at 02:00 Calcitriol (Rocaltrol) 0.25 mcg BID PO Last administered on 09/02/17 20:08; Admin Dose 0.25 MCG; Start 09/02/17 at 21:00 Liothyronine Sodium (Cytomel) 25 mcg BID PO Last administered on 09/02/17 20: 07; Admin Dose 25 MCG; Start 09/02/17 at 21:00 Hydrochlorothiazide 12.5 mg 12.5 mg DAILY PO Last administered on 09/02/17 15 :14; Admin Dose 12.5 MG; Start 09/02/17 at 13:30 Vancomycin HCl/ Sodium Chloride (Vancocin/Sodium Chloride) 250 ml @ 83.333 mls / hr Q8H IVPB Last administered on 09/03/17 04:54; Admin Dose 83.333 MLS/HR; Start 09/02/17 at 21:00 Letrozole (Femara) 2.5 mg DAILY PO Last administered on 09/02/17 21:35; Admin Dose 2.5 MG; Start 09/02/17 at 21:00 Acetaminophen (Tylenol Tab) 650 mg Q4H PRN PO PAIN AND OR ELEVATED TEMP; Start 09/02/17 at 19:30 Lisinopril 20 mg 20 mg BID PO Last administered on 09/02/17 20:08; Admin Dose 20 MG; Start 09/02/17 at 21:00 Levofloxacin/ Dextrose (Levaquin 750 Mg/ D5W 150 ml (Pmx)) 150 ml @ 100 mls/hr Q24H IVPB Last administered on 09/02/17 20:48; Admin Dose 100 MLS/HR; Start 09/02/17 at 19:30 Famotidine 20 mg 20 mg DAILY PO ; Start 09/03/17 at 09:00 Calcium Gluconate 1 gm/Dextrose 110 ml @ 110 mls/hr ONCE ONCE IVPB ; Start at 09:00; Stop 09/03/17 at 09:59 Magnesium Sulfate 50 ml @ 25 mls/hr ONCE ONCE IVPB ; Start 09/03/17 at 08:30; Stop 09/03/17 at 10:29; Status UNV Calcium Gluconate 2 gm/Dextrose 120 ml @ 60 mls/hr ONCE ONCE IVPB ; Start at 08:30; Stop 09/03/17 at 10:29; Status UNV Magnesium Sulfate/ Dextrose (Magnesium Sulfate/D5W) 112 ml @ 40 mls/hr ONCE ONCE IVPB ; Start 09/03/17 at 08:30; Stop 09/03/17 at 11:17; Status UNV Calcium Carbonate (Oyster Shell Calcium) 1.25 gm TID PO ; Start 09/03/17 at 09: 00; Status UNV Calcitriol (Calcitriol) 1 mcg ONCE ONCE IV ; Start 09/03/17 at 08:30; Stop at 08:31; Status UNV JONI HOGAN MD Sep 03, 2017 08:24
[2017-09-03] MEDS ORDERED: CALCIUM GLUCONATE 10% 2 GM in DEXTROSE 5% 100 ML IVPB ONE ×3 (08:30→13:30)
[2017-09-03] MEDS ORDERED: MAGNESIUM SULFATE 6 GM in DEXTROSE 5% 100 ML IVPB ONE (08:30)
[2017-09-03] MEDS ORDERED: CALCIUM GLUCONATE 10% 1 GM in DEXTROSE 5% 100 ML IVPB ONE (09:00)
[2017-09-03] MEDS ORDERED: CALCITRIOL 1 MCG INJ IV ONE ×2 (09:00→16:00)
[2017-09-03] MEDS ORDERED: MAGNESIUM SULFATE 2 GM/50 ML 50 ML IVPB ONE (09:00)
[2017-09-03] MEDS: CALCIUM CARBONATE 1.25 GM TAB PO SCH ×3 (09:13→21:47)
[2017-09-03] MEDS: CALCITRIOL 0.25 MCG CAP PO SCH ×2 (09:13→21:48)
[2017-09-03] MEDS: HYDROCHLOROTHIAZIDE 12.5 MG CAP PO SCH (09:14)
[2017-09-03] MEDS: LIOTHYRONINE 25 MCG TAB PO SCH ×2 (09:14→22:28)
[2017-09-03] MEDS: LISINOPRIL 20 MG TAB PO SCH ×2 (09:15→21:47)
[2017-09-03] MEDS: POTASSIUM CHLORIDE (SR) 20 MEQ TAB PO SCH ×2 (09:15→21:47)
[2017-09-03] MEDS: FAMOTIDINE 20 MG TAB PO SCH (09:15)
[2017-09-03] MEDS ORDERED: POTASSIUM CHLORIDE 20 MEQ POWDER FOR ORAL SOLN PO ONE (10:00)
[2017-09-03] MEDS: MAGNESIUM CHLORIDE (SR) 64 MG TAB PO SCH ×2 (10:54→21:46)
[2017-09-03] MEDS: LEVOFLOXACIN 750 MG TABLET PO SCH (10:54)
[2017-09-03 14:11] VITALS: BP 165/86; RESP 18
--- NOTE | 2017-09-03 16:20 | PN ---
Date/Time of Note Date/Time of Note DATE: 09/03/17 TIME: 15:53 Assessment/Plan VTE Prophylaxis VTE Prophylaxis Intervention: SCD's Lines/Catheters IV [facility] Type [facility]from [facility] Saline Lock Urinary Cath still in place: No Assessment/Plan Assessment/Plan 56 yo woman: 1. 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 Appreciate recommendations from endocrinology, calcium repletion IV along with Rocaltrol and p.o. calcium have been adjusted by Dr. Wylie along with additional electrolyte repletion. Patient also now on Cytomel. Repleting all electrolytes. Appreciate assistance and care from both general surgery and endocrinology. 2. Hypothyroidism: Status post thyroidectomy, total. Continue Cytomel 3. Hypertension: Continue home medication, Lisinopril and Norvasc. Continue hydralazine as needed while unable to tolerate p.o. 4. Diabetes mellitus: Sliding scale insulin and diabetic diet. Resume metformin once tolerating p.o. 5. Hyperlipidemia: Continue statin therapy. 6. Electrolyte imbalance, with hypokalemia, hypocalcemia, hypomagnesemia: repleting calcium, magnesium, potassium IV. Daily check of electrolytes. Further repletion as needed. 7. S/p bilateral mastectomy after having recurrent breast cancer diagnosed in the contralateral left breast, 3 weeks ago. Remains stable 8. Low-grade temperature POD#1, resolving, WBC trending down Possibly postoperative demargination, however patient has been started on antibiotics, Blood cx NGTD, if remain negative in the next 24 to 48 hr, will discontinue. Prophylaxis: SCDs for DVT prophylaxis, Pepcid for GI prophylaxis Disposition: Replete electrolytes IV, appreciate recommendations from Endocrinology. Recheck labs in a.m. Discharge planning once electrolytes within safe range especially calcium Subjective 24 Hr Interval Summary Free Text/Dictation Patient's dysphagia much improved today, she is tolerating soft diet. However she still has symptomatic hypocalcemia with tingling and numbness around her mouth and also some tingling of the hands Aggressive repletion of electrolytes with endocrinology assistance. Exam/Review of Systems Vital Signs Vitals Vital Signs Date Time Temp Pulse Resp B/P Pulse Ox O2 Delivery O2 Flow Rate FiO2 09/03/17 14:11 97.6 84 18 165/86 97 09/03/17 00:54 Room Air 08/30/17 23:45 3.0 Intake and Output 09/02/17 09/02/17 09/03/17 15:00 23:00 07:00 Intake Total 100 ml 1220 ml 870 ml Balance 100 ml 1220 ml 870 ml Exam Constitutional: alert, oriented, well developed Neck: other (S/P total thyroidectomy) Respiratory: clear to auscultation, normal air movement Cardiovascular: nl pulses, regular rate and rhythm Gastrointestinal: non-tender, soft Musculoskeletal: nl extremities to inspection Extremities: normal pulses Neurological: COM[employer] II-XII intact, nl mental status, nl speech, nl strength Results Result Diagram: 09/03/17 0507 09/03/17 0507 Results 24 hrs Laboratory Tests Test 09/02/17 17:51 09/02/17 20:06 09/03/17 01:53 09/03/17 05:07 Bedside Glucose 107 236 H 112 White Blood Count 7.4 # Red Blood Count 3.58 L Hemoglobin 10.5 L Hematocrit 31.1 L Mean Corpuscular Volume 86.9 Mean Corpuscular Hemoglobin 29.3 Mean Corpuscular Hemoglobin Concent 33.8 Red Cell Distribution Width 13.1 Platelet Count 308 Mean Platelet Volume 10.5 H Neutrophils % 56.2 Lymphocytes % 27.1 Monocytes % 9.9 Eosinophils % 5.7 Basophils % 0.8 Nucleated Red Blood Cells % 0.0 Neutrophils # 4.1 Lymphocytes # 2.0 Monocytes # 0.7 Eosinophils # 0.4 Basophils # 0.1 Nucleated Red Blood Cells # 0.0 Sodium Level 142 Potassium Level 3.3 L Chloride Level 105 Carbon Dioxide Level 23 Anion Gap 17 H Blood Urea Nitrogen 9 Creatinine 0.39 L Glucose Level 112 Calcium Level 5.1 *L Phosphorus Level 3.9 Magnesium Level 1.5 L Total Bilirubin 0.6 Direct Bilirubin 0.00 Indirect Bilirubin 0.6 Aspartate Amino Transf (AST/SGOT) 25 Alanine Aminotransferase (ALT/SGPT) 34 Alkaline Phosphatase 91 Total Protein 7.3 Albumin 3.3 Globulin 4.00 H Albumin/Globulin Ratio 0.82 Test 09/03/17 06:45 09/03/17 08:27 09/03/17 12:56 Ionized Calcium (Measured) 0.7 L Bedside Glucose 104 148 Medications Medications Current Medications Morphine Sulfate (morphine) 2 mg Q2H PRN IV SEVERE PAIN LEVEL 7-10; Start at 17:30 Amlodipine Besylate (Norvasc) 5 mg QPM PO Last administered on 09/02/17 20:08 ; Admin Dose 5 MG; Start 08/30/17 at 21:00 Ondansetron HCl (Zofran Inj) 4 mg Q4H PRN IV NAUSEA AND/OR VOMITING; Start at 17:30 Miscellaneous Information 1 ea NOTE XX ; Start 08/30/17 at 18:00 Glucose (Glutose) 15 gm Q15M PRN PO DECREASED GLUCOSE; Start 08/30/17 at 18:00 Glucose (Glutose) 22.5 gm Q15M PRN PO DECREASED GLUCOSE; Start 08/30/17 at 18: 00 Dextrose (D50w Syringe) 25 ml Q15M PRN IV DECREASED GLUCOSE; Start 08/30/17 at 18:00 Dextrose (D50w Syringe) 50 ml Q15M PRN IV DECREASED GLUCOSE; Start 08/30/17 at 18:00 Glucagon (Glucagen) 1 mg Q15M PRN IM DECREASED GLUCOSE; Start 08/30/17 at 18: 00 Glucose (Glutose) 15 gm Q15M PRN BUCCAL DECREASED GLUCOSE; Start 08/30/17 at 18:00 Lorazepam (Ativan) 0.5 mg Q8H PRN IV ANXIETY; Start 08/31/17 at 18:00 Hydralazine HCl (Apresoline) 10 mg Q4H PRN IV for SBP>160 or DBP>110 Last administered on 09/02/17 20:08; Admin Dose 10 MG; Start 08/31/17 at 19:00 Diagnostic Test (Pha) (Accu-Chek) 1 ea 02 XX Last administered on 09/03/17 01 :55; Admin Dose 1 EA; Start 09/02/17 at 02:00 Liothyronine Sodium 25 mcg 25 mcg BID PO Last administered on 09/03/17 09:14 ; Admin Dose 25 MCG; Start 09/02/17 at 21:00 Vancomycin HCl/ Sodium Chloride (Vancocin/Sodium Chloride) 250 ml @ 83.333 mls / hr Q8H IVPB Last administered on 09/03/17 13:36; Admin Dose 83.333 MLS/HR; Start 09/02/17 at 21:00 Letrozole (Femara) 2.5 mg DAILY PO Last administered on 09/02/17 21:35; Admin Dose 2.5 MG; Start 09/02/17 at 21:00 Acetaminophen (Tylenol Tab) 650 mg Q4H PRN PO PAIN AND OR ELEVATED TEMP; Start 09/02/17 at 19:30 Lisinopril (Zestril) 20 mg BID PO Last administered on 09/03/17 09:15; Admin Dose 20 MG; Start 09/02/17 at 21:00 Famotidine (Pepcid) 20 mg DAILY PO Last administered on 09/03/17 09:15; Admin Dose 20 MG; Start 09/03/17 at 09:00 Calcium Carbonate (Oyster Shell Calcium) 1.25 gm TID PO Last administered on 14:06; Admin Dose 1.25 GM; Start 09/03/17 at 09:00 Potassium Chloride (Klor-Con 20) 40 meq BID PO Last administered on 09/03/17 09:15; Admin Dose 40 MEQ; Start 09/03/17 at 09:00; Stop 09/04/17 at 08:59 Calcitriol (Rocaltrol) 0.5 mcg BID PO Last administered on 09/03/17 09:13; Admin Dose 0.5 MCG; Start 09/03/17 at 09:00 Calcitriol (Calcitriol) 1 mcg ONCE ONCE IV ; Start 09/03/17 at 16:00; Stop at 16:01 Magnesium Chloride (Mag 64) 64 mg BID PO Last administered on 09/03/17 10:54 ; Admin Dose 64 MG; Start 09/03/17 at 09:00; Stop 09/08/17 at 08:59 Levofloxacin (Levaquin) 750 mg DAILY PO Last administered on 09/03/17 10:54; Admin Dose 750 MG; Start 09/03/17 at 10:00 Hydrochlorothiazide (Hydrochlorothiazide) 25 mg DAILY@06 PO ; Start 09/04/17 at 06:00 Miscellaneous Information (*Rx Drug Level Order Reminder*) VANCOMYCIN TROUGH ON @ 20 ONCE ONCE XX ; Start 09/03/17 at 20:00; Stop 09/03/17 at 20:01 NICKOLAS PERAZA Sep 03, 2017 16:20
[2017-09-03 19:25] VITALS: BP 183/87; RESP 20
[2017-09-03] MEDS: AMLODIPINE 5 MG TAB PO SCH (21:48)
[2017-09-03 23:41] VITALS: BP 102/55; RESP 18
[2017-09-04] VITALS (10 sets, daily range): BP systolic 148–185; BP diastolic 70–84; PULSE 84–109; RESP 15–20
[2017-09-04] MEDS: ACCU-CHEK XX SCH (01:14)
[2017-09-04 05:42] LABS: BASOPHIL # 0.1 10^3/ul (0.0-0.1); EOSINOPHILS # 0.4 10^3/ul (0.0-0.5); EOSINOPHILS % 6.7 % (0.0-7.0); HEMATOCRIT 31.2 % (37.0-47.0); HEMOGLOBIN 10.3 g/dl (12.0-16.0); LYMPHOCYTES # 1.8 10^3/ul (0.8-2.9); MEAN CORPUSCULAR HEMOGLOBIN 29.5 pg (29.0-33.0); MEAN CORPUSCULAR VOLUME 89.4 fl (82.0-101.0); MEAN PLATELET VOLUME 10.4 fl (7.4-10.4); MONOCYTE # 0.6 10^3/ul (0.3-0.9); MONOCYTES % 10.2 % (0.0-11.0); NEUTROPHIL # 3.2 10^3/ul (1.6-7.5); NEUTROPHILS % 51.8 % (39.0-77.0); PLATELET COUNT 316 10^3/UL (140-415); RED BLOOD COUNT 3.49 10^6/ul (4.20-5.40); RED CELL DISTRIBUTION WIDTH 12.9 % (11.5-14.5); WHITE BLOOD COUNT 6.1 10^3/ul (4.8-10.8)
[2017-09-04 06:06] LABS: ALBUMIN 3.4 g/dl (3.3-4.9); ALBUMIN/GLOBULIN RATIO 0.85; BILIRUBIN,INDIRECT 0.7 mg/dl (0-1.1); BILIRUBIN,TOTAL 0.7 mg/dl (0.2-1.3); CALCIUM 6.4 mg/dl (8.4-10.2); CREATININE 0.44 mg/dl (0.44-1.00); POTASSIUM 3.8 mmol/L (3.5-5.1); TOTAL PROTEIN 7.4 g/dl (6.1-8.1)
[2017-09-04 06:12] LABS: MAGNESIUM 1.5 mg/dl (1.7-2.5); PHOSPHORUS 5.4 mg/dl (2.5-4.9)
[2017-09-04] MEDS: VANCOMYCIN 1.25 GM in SODIUM CHLORIDE 0.45 % 250 ML IVPB SCH (06:16)
[2017-09-04] MEDS: HYDROCHLOROTHIAZIDE 25 MG TAB PO SCH (06:19)
--- NOTE | 2017-09-04 07:36 | PN ---
DATE: 09/03/2017 Postop day #4 status post total thyroidectomy. The patient developed complication of severe hypoca lcemia SUBJECTIVE: States that today morning was feeling numbness around her mouth and face and tingling o f the fingers. At that time the calcium was as low as 5.1, which was treated by giving calcium gluc darlene and other medications. OBJECTIVE GENERAL: Awake, alert, oriented x3. VITAL SIGNS: Temperature 98.1, heart rate 84, respirations 18, blood pressure 159/80, saturation 97 % on room air. LABORATORY DATA: Today as was mentioned. Sodium, normal, potassium 3.3 low, BUN and creatinine nor mal. Calcium 5.1. Albumin 3.3. WBC 7400 with 56% neutrophils, normal. Hemoglobin 10.5, hematocri t 31. HEART: Regular. LUNGS: Clear. NECK: Wound clean. ABDOMEN: Soft. ASSESSMENT: A 56-year-old female status post total thyroidectomy for multifocal cancer of the thyro id, postop, patient developed severe hypocalcemia. Calcium dropped to 6 first postop day and today is 5.1, meanwhile patient has been treated for this matter per recommendation of communication center coordinator, Dr Modesto Wylie. Also internal medicine hospitalist, Dr. Corona is onboard and she is following the plan and t hey are correcting the hypocalcemia, hypokalemia and hypomagnesemia. Surgical point of view, the in cision is clean and probably any time that they decide to discharge the patient is okay to be discha rged from surgical point of view. Dictated By: TIFF PALM MD PS/NTS Conf#: [id number] DID#: [id number] CC: TIFF PALM MD;*EndCC*
[2017-09-04] MEDS: INSULIN ASPART [NOVOLOG] 3 ML PEN SC SCH ×4 (07:50→21:00)
[2017-09-04] MEDS ORDERED: CALCITRIOL 1 MCG INJ IV ONE (08:30)
[2017-09-04] MEDS ORDERED: CALCIUM GLUCONATE 10% 2 GM in DEXTROSE 5% 100 ML IVPB ONE (08:30)
[2017-09-04] MEDS: LIOTHYRONINE 25 MCG TAB PO SCH ×2 (08:32→21:29)
[2017-09-04] MEDS: CALCITRIOL 0.25 MCG CAP PO SCH ×2 (08:32→21:28)
[2017-09-04] MEDS: CALCIUM CARBONATE 1.25 GM TAB PO SCH ×3 (08:32→21:29)
[2017-09-04] MEDS: LEVOFLOXACIN 750 MG TABLET PO SCH (08:33)
[2017-09-04] MEDS ORDERED: POTASSIUM CHLORIDE (SR) 20 MEQ TAB PO STA (08:33)
[2017-09-04] MEDS: MAGNESIUM CHLORIDE (SR) 64 MG TAB PO SCH ×2 (08:33→21:28)
[2017-09-04] MEDS: LISINOPRIL 20 MG TAB PO SCH ×2 (08:33→21:28)
[2017-09-04] MEDS: FAMOTIDINE 20 MG TAB PO SCH (08:33)
--- NOTE | 2017-09-04 08:33 | CONS ---
Date/Time of Note Date/Time of Note DATE: 09/04/17 TIME: 08:29 Assessment/Plan Assessment/Plan Chief Complaint/Hosp Course Aleisha 56-year-old young lady who in the last year is been diagnosed with right breast cancer status post bilateral mastectomy. She was then found to have a thyroid mass and FNA biopsy this was consistent with papillary carcinoma thyroid. She was admitted on the for elective thyroidectomy. Postoperatively she has had symptomatic hypocalcemia. Problems: (1) Status post complete thyroidectomy Onset Date: ~ 08/30/2017 Status: Acute Comment: Patient is postoperative. She may have some recurrent laryngeal nerve issues but will have to see how she does over time. Clearly her parathyroid axis is presently off line and hopefully will come back on line. It is not possible to predict that at this moment (2) Hypocalcemia Status: Acute Comment: She is trying to turn the corner on this. However she still is got a significant deficiency am going to give her another dose of IV calcium and another dose of IV calcitriol. 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 Comment: Excellent diabetic control (5) HTN (hypertension) Status: Chronic Comment: Adequate control Qualifiers: Hypertension type: essential hypertension Qualified Code: I10 - Essential hypertension (6) Hypomagnesemia Status: Acute Comment: Persistently low will give another dose IV, she is receiving oral supplementation Consultation Date/Type/Reason Admit Date/Time Aug 30, 2017 at 10:48 Initial Consult Date 09/02/17 Type of Consultation: Endocrinology Reason for Consultation Postoperative hypocalcemia; papillary carcinoma thyroid; diabetes mellitus type 2 Referring Provider: JEFFREY PIERRE MD 24 HR Interval Summary Free Text/Dictation Patient reports subjectively that she is feeling better. Constitutional: no complaints (No fevers chills or sweats) Detailed Summary Respiratory: no complaints Cardiovascular: no complaints Gastrointestinal: no complaints Musculoskeletal: no complaints (Muscle spasm has improved) Exam/Review of Systems Vital Signs Vitals Vital Signs Date Time Temp Pulse Resp B/P Pulse Ox O2 Delivery O2 Flow Rate FiO2 09/04/17 02:10 98.6 75 20 152/82 99 09/03/17 00:54 Room Air Intake and Output 09/03/17 09/03/17 09/04/17 15:00 23:00 07:00 Intake Total 920 ml 870 ml 630 ml Output Total 1200 ml Balance 920 ml -330 ml 630 ml Exam Constitutional: alert, oriented Neck: non-tender, supple Respiratory: clear to auscultation, normal air movement Cardiovascular: nl pulses, regular rate and rhythm Neurological: other (Purpose. Pedal spasm. However there is a positive Trousseau sign) Results Result Diagram: 09/04/17 0455 09/04/17 0455 Results 24 hrs Laboratory Tests Test 09/03/17 12:56 09/03/17 17:49 09/03/17 20:16 09/03/17 22:04 Bedside Glucose 148 117 126 Vancomycin Level Trough 13.0 Test 09/04/17 04:55 White Blood Count 6.1 Red Blood Count 3.49 L Hemoglobin 10.3 L Hematocrit 31.2 L Mean Corpuscular Volume 89.4 Mean Corpuscular Hemoglobin 29.5 Mean Corpuscular Hemoglobin Concent 33.0 Red Cell Distribution Width 12.9 Platelet Count 316 Mean Platelet Volume 10.4 Neutrophils % 51.8 Lymphocytes % 30.0 Monocytes % 10.2 Eosinophils % 6.7 Basophils % 1.0 Nucleated Red Blood Cells % 0.0 Neutrophils # 3.2 Lymphocytes # 1.8 Monocytes # 0.6 Eosinophils # 0.4 Basophils # 0.1 Nucleated Red Blood Cells # 0.0 Sodium Level 143 Potassium Level 3.8 Chloride Level 104 Carbon Dioxide Level 26 Anion Gap 17 H Blood Urea Nitrogen 10 Creatinine 0.44 Glucose Level 123 Calcium Level 6.4 L Phosphorus Level 5.4 H Magnesium Level 1.5 L Total Bilirubin 0.7 Direct Bilirubin 0.00 Indirect Bilirubin 0.7 Aspartate Amino Transf (AST/SGOT) 31 Alanine Aminotransferase (ALT/SGPT) 37 Alkaline Phosphatase 102 Total Protein 7.4 Albumin 3.4 Globulin 4.00 H Albumin/Globulin Ratio 0.85 Medications Medications Current Medications Morphine Sulfate (morphine) 2 mg Q2H PRN IV SEVERE PAIN LEVEL 7-10; Start at 17:30 Amlodipine Besylate (Norvasc) 5 mg QPM PO Last administered on 09/03/17t 21:48 ; Admin Dose 5 MG; Start 08/30/17 at 21:00 Ondansetron HCl (Zofran Inj) 4 mg Q4H PRN IV NAUSEA AND/OR VOMITING; Start at 17:30 Miscellaneous Information 1 ea NOTE XX ; Start 08/30/17 at 18:00 Glucose (Glutose) 15 gm Q15M PRN PO DECREASED GLUCOSE; Start 08/30/17 at 18:00 Glucose (Glutose) 22.5 gm Q15M PRN PO DECREASED GLUCOSE; Start 08/30/17 at 18: 00 Dextrose (D50w Syringe) 25 ml Q15M PRN IV DECREASED GLUCOSE; Start 08/30/17 at 18:00 Dextrose (D50w Syringe) 50 ml Q15M PRN IV DECREASED GLUCOSE; Start 08/30/17 at 18:00 Glucagon (Glucagen) 1 mg Q15M PRN IM DECREASED GLUCOSE; Start 08/30/17 at 18: 00 Glucose (Glutose) 15 gm Q15M PRN BUCCAL DECREASED GLUCOSE; Start 08/30/17 at 18:00 Lorazepam (Ativan) 0.5 mg Q8H PRN IV ANXIETY; Start 08/31/17 at 18:00 Hydralazine HCl (Apresoline) 10 mg Q4H PRN IV for SBP>160 or DBP>110 Last administered on 09/02/17 20:08; Admin Dose 10 MG; Start 08/31/17 at 19:00 Diagnostic Test (Pha) (Accu-Chek) 1 ea 02 XX Last administered on 09/03/17 01 :55; Admin Dose 1 EA; Start 09/02/17 at 02:00 Liothyronine Sodium 25 mcg 25 mcg BID PO Last administered on 09/03/17 22:28 ; Admin Dose 25 MCG; Start 09/02/17 at 21:00 Vancomycin HCl/ Sodium Chloride (Vancocin/Sodium Chloride) 250 ml @ 83.333 mls / hr Q8H IVPB Last administered on 09/04/17 06:16; Admin Dose 83.333 MLS/HR; Start 09/02/17 at 21:00 Letrozole (Femara) 2.5 mg DAILY PO Last administered on 09/02/17 21:35; Admin Dose 2.5 MG; Start 09/02/17 at 21:00 Acetaminophen (Tylenol Tab) 650 mg Q4H PRN PO PAIN AND OR ELEVATED TEMP; Start 09/02/17 at 19:30 Lisinopril (Zestril) 20 mg BID PO Last administered on 09/03/17 21:47; Admin Dose 20 MG; Start 09/02/17 at 21:00 Famotidine (Pepcid) 20 mg DAILY PO Last administered on 09/03/17 09:15; Admin Dose 20 MG; Start 09/03/17 at 09:00 Calcium Carbonate (Oyster Shell Calcium) 1.25 gm TID PO Last administered on 21:47; Admin Dose 1.25 GM; Start 09/03/17 at 09:00 Potassium Chloride (Klor-Con 20) 40 meq BID PO Last administered on 09/03/17 21:47; Admin Dose 40 MEQ; Start 09/03/17 at 09:00; Stop 09/04/17 at 08:59 Calcitriol (Rocaltrol) 0.5 mcg BID PO Last administered on 09/03/17 21:48; Admin Dose 0.5 MCG; Start 09/03/17 at 09:00 Magnesium Chloride (Mag 64) 64 mg BID PO Last administered on 09/03/17 21:46 ; Admin Dose 64 MG; Start 09/03/17 at 09:00; Stop 09/08/17 at 08:59 Levofloxacin (Levaquin) 750 mg DAILY PO Last administered on 09/03/17 10:54; Admin Dose 750 MG; Start 09/03/17 at 10:00 Hydrochlorothiazide (Hydrochlorothiazide) 25 mg DAILY@06 PO Last administered on 09/04/17 06:19; Admin Dose 25 MG; Start 09/04/17 at 06:00 Calcitriol 1 mcg 1 mcg ONCE ONCE IV ; Start 09/04/17 at 08:30; Stop 09/04/17 at 08:31 Calcium Gluconate/ Dextrose (Ca Gluc/D5W) 120 ml @ 60 mls/hr ONCE ONCE IVPB ; Start 09/04/17 at 08:30; Stop 09/04/17 at 10:29 JONI HOGAN MD Sep 04, 2017 08:33
[2017-09-04] MEDS: LETROZOLE 2.5 MG TAB PO SCH (08:35)
[2017-09-04] MEDS ORDERED: MAGNESIUM SULFATE IVPB ONE (09:00)
[2017-09-04] MEDS ORDERED: DEXTROSE 5% IVPB ONE (09:00)
[2017-09-04] MEDS ORDERED: CALCITRIOL 0.25 MCG CAP PO ONE (11:30)
--- NOTE | 2017-09-04 13:36 | PN ---
Date/Time of Note Date/Time of Note DATE: 09/04/17 TIME: 13:27 Assessment/Plan VTE Prophylaxis VTE Prophylaxis Intervention: SCD's Lines/Catheters IV [facility]from [facility] Saline Lock Urinary Cath still in place: No Assessment/Plan Assessment/Plan 56 yo woman: 1. 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 Appreciate ongoing assistance and recommendations from endocrinology, calcium repletion IV along with Rocaltrol and p.o. calcium have been adjusted by Dr. Wylie along with additional electrolyte repletion. Patient also now on Cytomel. Repleting all electrolytes. Appreciate assistance and care from both general surgery. 2. Hypothyroidism: Status post thyroidectomy, total. Continue Cytomel 3. Hypertension: Continue home medication, Lisinopril and Norvasc. Continue hydralazine as needed while unable to tolerate p.o. 4. Diabetes mellitus: Sliding scale insulin and diabetic diet. Resume metformin once tolerating p.o better. 5. Hyperlipidemia: Continue statin therapy. 6. Electrolyte imbalance, with hypokalemia, hypocalcemia, hypomagnesemia: repleting calcium, magnesium, potassium IV. Daily check of electrolytes. Further repletion as needed. 7. S/p bilateral mastectomy after having recurrent breast cancer diagnosed in the contralateral left breast, 3 weeks ago. Remains stable 8. Low-grade temperature POD#1 and leukocytosis: All resolved for at least 48 hours. Discontinue vancomycin today. If final cultures negative we will discontinue Levaquin by the time of discharge. Probiotics. Prophylaxis: SCDs for DVT prophylaxis, Pepcid for GI prophylaxis Disposition: Replete electrolytes IV, appreciate assistance and recommendations from Endocrinology. Recheck labs in a.m. Discharge planning once electrolytes within safe range especially calcium. Subjective 24 Hr Interval Summary Free Text/Dictation Patient doing well, still with significant hypocalcemia and hypomagnesemia requiring IV replacement, appreciate assistance from endocrinology. Improving dysphagia and increasing p.o. intake. Discontinue vancomycin today. Patient remained afebrile with a WBC within normal Exam/Review of Systems Vital Signs Vitals Vital Signs Date Time Temp Pulse Resp B/P Pulse Ox O2 Delivery O2 Flow Rate FiO2 09/04/17 08:30 98.2 83 20 163/82 96 09/03/17 00:54 Room Air Intake and Output 09/03/17 09/03/17 09/04/17 15:00 23:00 07:00 Intake Total 920 ml 870 ml 630 ml Output Total 1200 ml Balance 920 ml -330 ml 630 ml Exam Constitutional: alert, oriented, well developed Neck: other (Status post total thyroidectomy, dressing in place. No signs of acute bleeding.) Respiratory: clear to auscultation, normal air movement Cardiovascular: nl pulses, regular rate and rhythm Gastrointestinal: non-tender, soft Musculoskeletal: nl extremities to inspection Extremities: normal pulses Neurological: [employer] II-XII intact, nl mental status, nl speech, nl strength Results Result Diagram: 09/04/17 0455 09/04/17 0455 Results 24 hrs Laboratory Tests Test 09/03/17 17:49 09/03/17 20:16 09/03/17 22:04 09/04/17 04:55 Bedside Glucose 117 126 Vancomycin Level Trough 13.0 White Blood Count 6.1 Red Blood Count 3.49 L Hemoglobin 10.3 L Hematocrit 31.2 L Mean Corpuscular Volume 89.4 Mean Corpuscular Hemoglobin 29.5 Mean Corpuscular Hemoglobin Concent 33.0 Red Cell Distribution Width 12.9 Platelet Count 316 Mean Platelet Volume 10.4 Neutrophils % 51.8 Lymphocytes % 30.0 Monocytes % 10.2 Eosinophils % 6.7 Basophils % 1.0 Nucleated Red Blood Cells % 0.0 Neutrophils # 3.2 Lymphocytes # 1.8 Monocytes # 0.6 Eosinophils # 0.4 Basophils # 0.1 Nucleated Red Blood Cells # 0.0 Sodium Level 143 Potassium Level 3.8 Chloride Level 104 Carbon Dioxide Level 26 Anion Gap 17 H Blood Urea Nitrogen 10 Creatinine 0.44 Glucose Level 123 Calcium Level 6.4 L Phosphorus Level 5.4 H Magnesium Level 1.5 L Total Bilirubin 0.7 Direct Bilirubin 0.00 Indirect Bilirubin 0.7 Aspartate Amino Transf (AST/SGOT) 31 Alanine Aminotransferase (ALT/SGPT) 37 Alkaline Phosphatase 102 Total Protein 7.4 Albumin 3.4 Globulin 4.00 H Albumin/Globulin Ratio 0.85 Test 09/04/17 08:43 09/04/17 12:27 Bedside Glucose 105 149 Medications Medications Current Medications Morphine Sulfate (morphine) 2 mg Q2H PRN IV SEVERE PAIN LEVEL 7-10; Start at 17:30 Ondansetron HCl (Zofran Inj) 4 mg Q4H PRN IV NAUSEA AND/OR VOMITING; Start at 17:30 Miscellaneous Information 1 ea NOTE XX ; Start 08/30/17 at 18:00 Glucose (Glutose) 15 gm Q15M PRN PO DECREASED GLUCOSE; Start 08/30/17 at 18:00 Glucose (Glutose) 22.5 gm Q15M PRN PO DECREASED GLUCOSE; Start 08/30/17 at 18: 00 Dextrose (D50w Syringe) 25 ml Q15M PRN IV DECREASED GLUCOSE; Start 08/30/17 at 18:00 Dextrose (D50w Syringe) 50 ml Q15M PRN IV DECREASED GLUCOSE; Start 08/30/17 at 18:00 Glucagon (Glucagen) 1 mg Q15M PRN IM DECREASED GLUCOSE; Start 08/30/17 at 18: 00 Glucose (Glutose) 15 gm Q15M PRN BUCCAL DECREASED GLUCOSE; Start 08/30/17 at 18:00 Lorazepam (Ativan) 0.5 mg Q8H PRN IV ANXIETY; Start 08/31/17 at 18:00 Hydralazine HCl (Apresoline) 10 mg Q4H PRN IV for SBP>160 or DBP>110 Last administered on 09/02/17 20:08; Admin Dose 10 MG; Start 08/31/17 at 19:00 Diagnostic Test (Pha) (Accu-Chek) 1 ea 02 XX Last administered on 09/03/17 01 :55; Admin Dose 1 EA; Start 09/02/17 at 02:00 Liothyronine Sodium 25 mcg 25 mcg BID PO Last administered on 09/04/17 08:32 ; Admin Dose 25 MCG; Start 09/02/17 at 21:00 Vancomycin HCl/ Sodium Chloride (Vancocin/Sodium Chloride) 250 ml @ 83.333 mls / hr Q8H IVPB Last administered on 09/04/17 06:16; Admin Dose 83.333 MLS/HR; Start 09/02/17 at 21:00 Letrozole (Femara) 2.5 mg DAILY PO Last administered on 09/04/17 08:35; Admin Dose 2.5 MG; Start 09/02/17 at 21:00 Acetaminophen (Tylenol Tab) 650 mg Q4H PRN PO PAIN AND OR ELEVATED TEMP; Start 09/02/17 at 19:30 Lisinopril (Zestril) 20 mg BID PO Last administered on 09/04/17 08:33; Admin Dose 20 MG; Start 09/02/17 at 21:00 Famotidine (Pepcid) 20 mg DAILY PO Last administered on 09/04/17 08:33; Admin Dose 20 MG; Start 09/03/17 at 09:00 Calcium Carbonate (Oyster Shell Calcium) 1.25 gm TID PO Last administered on 12:53; Admin Dose 1.25 GM; Start 09/03/17 at 09:00 Calcitriol (Rocaltrol) 0.5 mcg BID PO Last administered on 09/04/17 08:32; Admin Dose 0.5 MCG; Start 09/03/17 at 09:00 Magnesium Chloride (Mag 64) 64 mg BID PO Last administered on 09/04/17 08:33 ; Admin Dose 64 MG; Start 09/03/17 at 09:00; Stop 09/08/17 at 08:59 Levofloxacin (Levaquin) 750 mg DAILY PO Last administered on 09/04/17 08:33; Admin Dose 750 MG; Start 09/03/17 at 10:00 Hydrochlorothiazide 25 mg 25 mg DAILY@06 PO Last administered on 09/04/17 06: 19; Admin Dose 25 MG; Start 09/04/17 at 06:00 Magnesium Sulfate/ Dextrose (Magnesium Sulfate/D5W) 250 ml @ 41.667 mls/ hr ONCE ONCE IVPB Last administered on 09/04/17 09:50; Admin Dose 41.667 MLS/HR ; Start 09/04/17 at 09:00; Stop 09/04/17 at 14:59 Amlodipine Besylate (Norvasc) 10 mg QPM PO ; Start 09/04/17 at 21:00 NICKOLAS PERAZA Sep 04, 2017 13:36
[2017-09-04] MEDS: LACTOBACILLUS RHAMNOSUS CAP PO SCH ×2 (16:38→21:33)
[2017-09-04] MEDS: hydrALAzine 20 MG INJ IV PRN (19:32)
[2017-09-04] MEDS ORDERED: AMLODIPINE 5 MG TAB PO SCH (21:00)
[2017-09-05] VITALS (7 sets, daily range): BP systolic 134–165; BP diastolic 63–76; PULSE 102–111; RESP 17–18
[2017-09-05] MEDS: hydrALAzine 20 MG INJ IV PRN ×2 (00:10→14:33)
[2017-09-05] MEDS: ACCU-CHEK XX SCH (02:00)
--- NOTE | 2017-09-05 02:46 | PN ---
DATE: 09/04/2017 Postop day #5. OPERATION: Total thyroidectomy. SUBJECTIVE: Feels better today. Swallowing is better. Has tolerated a regular diet. No more ting ling or numbness of the fingers. OBJECTIVE: GENERAL: Awake, alert, oriented x3. VITAL SIGNS: Temperature maximum today 98.8, heart rate 84, respirations 17, blood pressure 152/75, saturation 96% on room air. LABORATORY DATA: WBC 6100 with 51% neutrophils, which is normal differential. Hemoglobin and hemat ocrit are stable. Chemistry: Sodium and potassium normal; BUN and creatinine normal. Calcium has increased to 6.4. Phosphorus is 5.4. Magnesium is 1.5 (low). Albumin is 3.4. PHYSICAL EXAMINATION: HEART: Regular. LUNGS: Clear. ABDOMEN: Soft. Dressing was removed. Incision is clean. Dressing change with a sterile dressing. ASSESSMENT AND PLAN: A 56-year-old female with multiple comorbidities including diabetes mellitus and high blood pressure who underwent total thyroidectomy for papillary cancer of the thyroid. Post op, she developed severe symptomatic hypocalcemia, required infusion of the vitamin D, calcium, also magnesium infusion. Gradually the patient got better. The patient had severe dysphagia, but almos t resolved completely today and she has tolerated food. The voice is normal. The patient is under care of reflexologist, Dr. Wylie, and also internal medicine hospitalist, Dr. Corona. They are jenniffer ging all of this hypocalcemia, hypokalemia and hypomagnesemia. From surgical point of view, the pat ient can be discharged any time it is okay with the reflexologist and internal medicine. The jessica ent to be followed by Dr. Sandoval in his office on 09/10/2017 or on first week of September. Dictated By: TIFF PALM MD PS/NTS Conf#: [id number] DID#: [id number] CC: JEFFREY SANDOVAL MD;*End*
[2017-09-05 05:29] LABS: BASOPHIL # 0.1 10^3/ul (0.0-0.1); BASOPHILS % 0.9 % (0.0-2.0); EOSINOPHILS # 0.3 10^3/ul (0.0-0.5); EOSINOPHILS % 3.8 % (0.0-7.0); HEMATOCRIT 33.6 % (37.0-47.0); HEMOGLOBIN 11.1 g/dl (12.0-16.0); LYMPHOCYTES # 1.6 10^3/ul (0.8-2.9); LYMPHOCYTES % 23.8 % (15.0-51.0); MEAN CORPUSCULAR HEMOGLOBIN 29.3 pg (29.0-33.0); MEAN CORPUSCULAR VOLUME 88.7 fl (82.0-101.0); MEAN PLATELET VOLUME 10.4 fl (7.4-10.4); MONOCYTE # 0.7 10^3/ul (0.3-0.9); NEUTROPHIL # 4.2 10^3/ul (1.6-7.5); NEUTROPHILS % 61.2 % (39.0-77.0); PLATELET COUNT 363 10^3/UL (140-415); RED BLOOD COUNT 3.79 10^6/ul (4.20-5.40); RED CELL DISTRIBUTION WIDTH 12.5 % (11.5-14.5); WHITE BLOOD COUNT 6.9 10^3/ul (4.8-10.8)
[2017-09-05 05:55] LABS: ALBUMIN 3.7 g/dl (3.3-4.9); ALBUMIN/GLOBULIN RATIO 0.92; BILIRUBIN,INDIRECT 0.7 mg/dl (0-1.1); BILIRUBIN,TOTAL 0.7 mg/dl (0.2-1.3); CALCIUM 7.6 mg/dl (8.4-10.2); CREATININE 0.46 mg/dl (0.44-1.00); POTASSIUM 3.8 mmol/L (3.5-5.1); TOTAL PROTEIN 7.7 g/dl (6.1-8.1)
[2017-09-05] MEDS: HYDROCHLOROTHIAZIDE 25 MG TAB PO SCH (06:18)
[2017-09-05] MEDS: INSULIN ASPART [NOVOLOG] 3 ML PEN SC SCH ×2 (07:50→12:07)
[2017-09-05] MEDS: CALCIUM CARBONATE 1.25 GM TAB PO SCH ×2 (08:44→12:04)
[2017-09-05] MEDS: CALCITRIOL 0.25 MCG CAP PO SCH (08:44)
[2017-09-05] MEDS: LACTOBACILLUS RHAMNOSUS CAP PO SCH (08:44)
[2017-09-05] MEDS: MAGNESIUM CHLORIDE (SR) 64 MG TAB PO SCH (08:44)
[2017-09-05] MEDS: LEVOFLOXACIN 750 MG TABLET PO SCH (08:44)
[2017-09-05] MEDS: LIOTHYRONINE 25 MCG TAB PO SCH (08:44)
[2017-09-05] MEDS: FAMOTIDINE 20 MG TAB PO SCH (08:45)
[2017-09-05] MEDS: LISINOPRIL 20 MG TAB PO SCH (08:45)
--- NOTE | 2017-09-05 08:50 | CONS ---
Date/Time of Note Date/Time of Note DATE: 09/05/17 TIME: 08:47 Assessment/Plan Assessment/Plan Chief Complaint/Hosp Course Aleisha 56-year-old young lady who in the last year is been diagnosed with right breast cancer status post bilateral mastectomy. She was then found to have a thyroid mass and FNA biopsy this was consistent with papillary carcinoma thyroid. She was admitted on the for elective thyroidectomy. Postoperatively she has had symptomatic hypocalcemia. Problems: (1) Hypocalcemia Status: Acute Comment: She is now moving in the right direction. Based on the above from my perspective she can be discharged I will follow up with her this coming Wednesday in the office and fine tune. Please have her come by my office the day before her appointment to do laboratory testing for calcium (2) Papillary adenocarcinoma of thyroid Status: Acute Comment: On suppressive therapy; radioactive iodine ablation at the late October (3) DM type 2 with diabetic dyslipidemia Status: Chronic Comment: Adequate control under current regimen (4) HTN (hypertension) Status: Chronic Comment: Adequate control Qualifiers: Hypertension type: essential hypertension Qualified Code: I10 - Essential hypertension (5) Breast cancer, right breast Status: Chronic Comment: Patient is on therapeutics now is being guided as an outpatient by oncology Qualifiers: Breast location: upper outer quadrant of breast Estrogen receptor status: positive Patient sex: female Qualified Code: C50.411 - Malignant neoplasm of upper-outer quadrant of right breast in female, estrogen receptor positive Consultation Date/Type/Reason Admit Date/Time Aug 30, 2017 at 10:48 Initial Consult Date 09/02/17 Type of Consultation: Endocrinology Reason for Consultation Postoperative hypocalcemia; papillary carcinoma of the thyroid. Referring Provider: JEFFREY PIERRE MD 24 HR Interval Summary Free Text/Dictation Patient reports she is feeling much better. Constitutional: no complaints Detailed Summary Respiratory: no complaints Cardiovascular: no complaints Gastrointestinal: no complaints Genitourinary: no complaints Musculoskeletal: no complaints Exam/Review of Systems Vital Signs Vitals Vital Signs Date Time Temp Pulse Resp B/P Pulse Ox O2 Delivery O2 Flow Rate FiO2 09/05/17 07:47 98.7 106 18 143/76 97 09/04/17 20:00 Room Air Intake and Output 09/04/17 09/04/17 09/05/17 15:00 23:00 07:00 Intake Total 370 ml 1250 ml 400 ml Balance 370 ml 1250 ml 400 ml Exam Voice has improved somewhat although is not perfect Constitutional: alert, oriented Respiratory: clear to auscultation, normal air movement Cardiovascular: nl pulses, regular rate and rhythm Results Result Diagram: 09/05/172 09/05/17 0442 Results 24 hrs Laboratory Tests Test 09/04/17 12:27 09/04/17 17:49 09/04/17 21:26 09/05/17 04:42 Bedside Glucose 149 112 176 White Blood Count 6.9 Red Blood Count 3.79 L Hemoglobin 11.1 L Hematocrit 33.6 L Mean Corpuscular Volume 88.7 Mean Corpuscular Hemoglobin 29.3 Mean Corpuscular Hemoglobin Concent 33.0 Red Cell Distribution Width 12.5 Platelet Count 363 Mean Platelet Volume 10.4 Neutrophils % 61.2 Lymphocytes % 23.8 Monocytes % 10.0 Eosinophils % 3.8 Basophils % 0.9 Nucleated Red Blood Cells % 0.0 Neutrophils # 4.2 Lymphocytes # 1.6 Monocytes # 0.7 Eosinophils # 0.3 Basophils # 0.1 Nucleated Red Blood Cells # 0.0 Sodium Level 141 Potassium Level 3.8 Chloride Level 102 Carbon Dioxide Level 26 Anion Gap 17 H Blood Urea Nitrogen 11 Creatinine 0.46 Glucose Level 137 Calcium Level 7.6 L Phosphorus Level 6.9 H Magnesium Level 1.9 Total Bilirubin 0.7 Direct Bilirubin 0.00 Indirect Bilirubin 0.7 Aspartate Amino Transf (AST/SGOT) 28 Alanine Aminotransferase (ALT/SGPT) 45 Alkaline Phosphatase 111 Total Protein 7.7 Albumin 3.7 Globulin 4.00 H Albumin/Globulin Ratio 0.92 Test 09/05/17 08:43 Bedside Glucose 131 Medications Medications Current Medications Morphine Sulfate (morphine) 2 mg Q2H PRN IV SEVERE PAIN LEVEL 7-10; Start at 17:30 Ondansetron HCl (Zofran Inj) 4 mg Q4H PRN IV NAUSEA AND/OR VOMITING; Start at 17:30 Miscellaneous Information 1 ea NOTE XX ; Start 08/30/17 at 18:00 Glucose (Glutose) 15 gm Q15M PRN PO DECREASED GLUCOSE; Start 08/30/17 at 18:00 Glucose (Glutose) 22.5 gm Q15M PRN PO DECREASED GLUCOSE; Start 08/30/17 at 18: 00 Dextrose (D50w Syringe) 25 ml Q15M PRN IV DECREASED GLUCOSE; Start 08/30/17 at 18:00 Dextrose (D50w Syringe) 50 ml Q15M PRN IV DECREASED GLUCOSE; Start 08/30/17 at 18:00 Glucagon (Glucagen) 1 mg Q15M PRN IM DECREASED GLUCOSE; Start 08/30/17 at 18: 00 Glucose (Glutose) 15 gm Q15M PRN BUCCAL DECREASED GLUCOSE; Start 08/30/17 at 18:00 Lorazepam (Ativan) 0.5 mg Q8H PRN IV ANXIETY; Start 08/31/17 at 18:00 Hydralazine HCl (Apresoline) 10 mg Q4H PRN IV for SBP>160 or DBP>110 Last administered on 09/05/17 00:10; Admin Dose 10 MG; Start 08/31/17 at 19:00 Diagnostic Test (Pha) (Accu-Chek) 1 ea 02 XX Last administered on 09/03/17 01 :55; Admin Dose 1 EA; Start 09/02/17 at 02:00 Liothyronine Sodium (Cytomel) 25 mcg BID PO Last administered on 09/04/17 21: 29; Admin Dose 25 MCG; Start 09/02/17 at 21:00 Letrozole (Femara) 2.5 mg DAILY PO Last administered on 09/04/17 08:35; Admin Dose 2.5 MG; Start 09/02/17 at 21:00 Acetaminophen (Tylenol Tab) 650 mg Q4H PRN PO PAIN AND OR ELEVATED TEMP; Start 09/02/17 at 19:30 Lisinopril (Zestril) 20 mg BID PO Last administered on 09/04/17 21:28; Admin Dose 20 MG; Start 09/02/17 at 21:00 Famotidine (Pepcid) 20 mg DAILY PO Last administered on 09/04/17 08:33; Admin Dose 20 MG; Start 09/03/17 at 09:00 Calcium Carbonate (Oyster Shell Calcium) 1.25 gm TID PO Last administered on 21:29; Admin Dose 1.25 GM; Start 09/03/17 at 09:00 Calcitriol (Rocaltrol) 0.5 mcg BID PO Last administered on 09/04/17 21:28; Admin Dose 0.5 MCG; Start 09/03/17 at 09:00 Magnesium Chloride (Mag 64) 64 mg BID PO Last administered on 09/04/17 21:28 ; Admin Dose 64 MG; Start 09/03/17 at 09:00; Stop 09/08/17 at 08:59 Levofloxacin (Levaquin) 750 mg DAILY PO Last administered on 09/04/17 08:33; Admin Dose 750 MG; Start 09/03/17 at 10:00 Hydrochlorothiazide (Hydrochlorothiazide) 25 mg DAILY@06 PO Last administered on 09/05/17 06:18; Admin Dose 25 MG; Start 09/04/17 at 06:00 Amlodipine Besylate (Norvasc) 10 mg QPM PO Last administered on 09/04/17 21: 30; Admin Dose 10 MG; Start 09/04/17 at 21:00 Lactobacillus Acidophilus/ Rhamnosus (Culturelle) 1 cap BID PO Last administered on 09/04/17 21:33; Admin Dose 1 CAP; Start 09/04/17 at 13:30 JONI HOGAN MD Sep 05, 2017 08:50
[2017-09-05] MEDS: LETROZOLE 2.5 MG TAB PO SCH (08:52)
--- NOTE | 2017-09-05 14:14 | PN ---
Date/Time of Note Date/Time of Note DATE: 09/05/17 TIME: 14:13 Assessment/Plan VTE Prophylaxis VTE Prophylaxis Intervention: SCD's Lines/Catheters IV C[facility]ter Type (from [facility] Urinary Cath still in place: No Assessment/Plan Assessment/Plan 56 yo woman: 1. S/p total thyroidectomy with en bloc resection of a portion of the left strap muscles for papillary carcinoma of the thyroid with invasion of left strap muscles, POD#5 Improving dysphagia, she is now on soft diet. Symptomatic hypocalcemia resolved. Appreciate ongoing assistance and recommendations from endocrinology, discharge home on oral calcium, Rocaltrol, magnesium as adjusted by Dr. Wylie. Patient also now on Cytomel. Discharge home with outpatient follow-up with endocrinology and surgery this coming Monday 09/10 2. Hypothyroidism: Status post thyroidectomy, total. Continue Cytomel 3. Hypertension: Continue home medication. 4. Diabetes mellitus: diabetic diet and resume metformin at home. 5. Hyperlipidemia: Continue statin therapy. 6. Electrolyte imbalance, resolved hypokalemia, resolving hypocalcemia and hypomagnesemia, discharging home with oral supplementation. 7. S/p bilateral mastectomy after having recurrent breast cancer diagnosed in the contralateral left breast, 3 weeks ago. Remains stable. Prophylaxis: SCDs for DVT prophylaxis, Pepcid for GI prophylaxis Disposition: Discharge home today with outpatient follow-up next week with endocrinology and surgery. Subjective 24 Hr Interval Summary Free Text/Dictation Patient doing well this morning, she is not having any numbness. Calcium level trending up. Patient to be discharged today with supplemental oral electrolytes. She is to follow-up with endocrinology and general surgery later this point. Exam/Review of Systems Vital Signs Vitals Vital Signs Date Time Temp Pulse Resp B/P Pulse Ox O2 Delivery O2 Flow Rate FiO2 09/05/17 07:47 98.7 106 18 143/76 97 09/04/17 20:00 Room Air Intake and Output 09/04/17 09/04/17 09/05/17 15:00 23:00 07:00 Intake Total 370 ml 1250 ml 400 ml Balance 370 ml 1250 ml 400 ml Exam Constitutional: alert, oriented, well developed Neck: other (Status post thyroidectomy with dressing in place.) Respiratory: clear to auscultation, normal air movement Cardiovascular: nl pulses, regular rate and rhythm Gastrointestinal: non-tender, soft Musculoskeletal: nl extremities to inspection Extremities: normal pulses Neurological: SWEAT [employer]OX [employer]ENDANT II-XII intact, nl mental status, nl speech, nl strength Results Result Diagram: 09/05/172 09/05/17 0442 Results 24 hrs Laboratory Tests Test 09/04/17 17:49 09/04/17 21:26 09/05/17 04:42 09/05/17 08:43 Bedside Glucose 112 176 131 White Blood Count 6.9 Red Blood Count 3.79 L Hemoglobin 11.1 L Hematocrit 33.6 L Mean Corpuscular Volume 88.7 Mean Corpuscular Hemoglobin 29.3 Mean Corpuscular Hemoglobin Concent 33.0 Red Cell Distribution Width 12.5 Platelet Count 363 Mean Platelet Volume 10.4 Neutrophils % 61.2 Lymphocytes % 23.8 Monocytes % 10.0 Eosinophils % 3.8 Basophils % 0.9 Nucleated Red Blood Cells % 0.0 Neutrophils # 4.2 Lymphocytes # 1.6 Monocytes # 0.7 Eosinophils # 0.3 Basophils # 0.1 Nucleated Red Blood Cells # 0.0 Sodium Level 141 Potassium Level 3.8 Chloride Level 102 Carbon Dioxide Level 26 Anion Gap 17 H Blood Urea Nitrogen 11 Creatinine 0.46 Glucose Level 137 Calcium Level 7.6 L Phosphorus Level 6.9 H Magnesium Level 1.9 Total Bilirubin 0.7 Direct Bilirubin 0.00 Indirect Bilirubin 0.7 Aspartate Amino Transf (AST/SGOT) 28 Alanine Aminotransferase (ALT/SGPT) 45 Alkaline Phosphatase 111 Total Protein 7.7 Albumin 3.7 Globulin 4.00 H Albumin/Globulin Ratio 0.92 Test 09/05/17 12:05 Bedside Glucose 181 Medications Medications Current Medications Morphine Sulfate (morphine) 2 mg Q2H PRN IV SEVERE PAIN LEVEL 7-10; Start at 17:30 Ondansetron HCl (Zofran Inj) 4 mg Q4H PRN IV NAUSEA AND/OR VOMITING; Start at 17:30 Miscellaneous Information 1 ea NOTE XX ; Start 08/30/17 at 18:00 Glucose (Glutose) 15 gm Q15M PRN PO DECREASED GLUCOSE; Start 08/30/17 at 18:00 Glucose (Glutose) 22.5 gm Q15M PRN PO DECREASED GLUCOSE; Start 08/30/17 at 18: 00 Dextrose (D50w Syringe) 25 ml Q15M PRN IV DECREASED GLUCOSE; Start 08/30/17 at 18:00 Dextrose (D50w Syringe) 50 ml Q15M PRN IV DECREASED GLUCOSE; Start 08/30/17 at 18:00 Glucagon (Glucagen) 1 mg Q15M PRN IM DECREASED GLUCOSE; Start 08/30/17 at 18: 00 Glucose (Glutose) 15 gm Q15M PRN BUCCAL DECREASED GLUCOSE; Start 08/30/17 at 18:00 Lorazepam (Ativan) 0.5 mg Q8H PRN IV ANXIETY; Start 08/31/17 at 18:00 Hydralazine HCl (Apresoline) 10 mg Q4H PRN IV for SBP>160 or DBP>110 Last administered on 09/05/17 00:10; Admin Dose 10 MG; Start 08/31/17 at 19:00 Diagnostic Test (Pha) (Accu-Chek) 1 ea 02 XX Last administered on 09/03/17 01 :55; Admin Dose 1 EA; Start 09/02/17 at 02:00 Liothyronine Sodium (Cytomel) 25 mcg BID PO Last administered on 09/05/17 08: 44; Admin Dose 25 MCG; Start 09/02/17 at 21:00 Letrozole (Femara) 2.5 mg DAILY PO Last administered on 09/05/17 08:52; Admin Dose 2.5 MG; Start 09/02/17 at 21:00 Acetaminophen (Tylenol Tab) 650 mg Q4H PRN PO PAIN AND OR ELEVATED TEMP; Start 09/02/17 at 19:30 Lisinopril (Zestril) 20 mg BID PO Last administered on 09/05/17 08:45; Admin Dose 20 MG; Start 09/02/17 at 21:00 Famotidine (Pepcid) 20 mg DAILY PO Last administered on 09/05/17 08:45; Admin Dose 20 MG; Start 09/03/17 at 09:00 Calcium Carbonate (Oyster Shell Calcium) 1.25 gm TID PO Last administered on 12:04; Admin Dose 1.25 GM; Start 09/03/17 at 09:00 Calcitriol (Rocaltrol) 0.5 mcg BID PO Last administered on 09/05/17 08:44; Admin Dose 0.5 MCG; Start 09/03/17 at 09:00 Magnesium Chloride (Mag 64) 64 mg BID PO Last administered on 09/05/17 08:44 ; Admin Dose 64 MG; Start 09/03/17 at 09:00; Stop 09/08/17 at 08:59 Levofloxacin (Levaquin) 750 mg DAILY PO Last administered on 09/05/17 08:44; Admin Dose 750 MG; Start 09/03/17 at 10:00 Hydrochlorothiazide (Hydrochlorothiazide) 25 mg DAILY@06 PO Last administered on 09/05/17 06:18; Admin Dose 25 MG; Start 09/04/17 at 06:00 Amlodipine Besylate (Norvasc) 10 mg QPM PO Last administered on 09/04/17 21: 30; Admin Dose 10 MG; Start 09/04/17 at 21:00 Lactobacillus Acidophilus/ Rhamnosus (Culturelle) 1 cap BID PO Last administered on 09/05/17 08:44; Admin Dose 1 CAP; Start 09/04/17 at 13:30 NICKOLAS PERAZA Sep 05, 2017 14:14
--- NOTE | 2017-09-05 14:15 | PDOCDIS ---
Discharge Instructions CONDITION Patient Condition: Stable HOME CARE INSTRUCTIONS: Special Diet: SOFT ACTIVITY: Activity Restrictions: Slowly Increase Activity Rest between Activity Avoid heavy lifting Avoid Heavy Housework Bathing Restrictions: ShowerActivity Restrictions Comment: keep surgical area clean at all times. FOLLOW UP/APPOINTMENTS Follow-up Plan Follow-up with Dr. Wylie this week Follow-up with Dr. Sandoval within 1 week Follow-up with primary care physician within 1 week NICKOLAS PERAZA Sep 05, 2017 14:15
[2017-09-05] MEDS ORDERED: SLOMAG PO (14:20)
[2017-09-05] MEDS ORDERED: Calcium Carbonate PO (14:20)
[2017-09-05] MEDS ORDERED: LIOT25TA3 PO (14:20)
[2017-09-05] MEDS ORDERED: CALC0.2511 PO (14:20)
== END 2017-09-05 15:15 | disposition home or self-care (01) | DRG 626 ==
LOC: REC 10:48 → EDSTATUS 12:00 → MS1 17:44
PROVIDERS: ADMIT Surgery Surgical Oncology; ATTEND Surgery Surgical Oncology
PROC: 0KB30ZZ Excision of Left Neck Muscle, Open Approach (ICD-10-PCS; 2017-08-30)
PROC: 0GTK0ZZ Resection of Thyroid Gland, Open Approach (ICD-10-PCS; principal; 2017-08-30 12:30)
DX: C73 Malignant neoplasm of thyroid gland (principal); C79.89 Secondary malignant neoplasm of other specified sites; E11.69 Type 2 diabetes mellitus with other specified complication; E83.42 Hypomagnesemia; E83.51 Hypocalcemia; I10 Essential (primary) hypertension; E78.5 Hyperlipidemia, unspecified; E03.8 Other specified hypothyroidism; E87.6 Hypokalemia; E03.9 Hypothyroidism, unspecified; Z90.13 Acquired absence of bilateral breasts and nipples; Z85.3 Personal history of malignant neoplasm of breast; Z79.84 Long term (current) use of oral hypoglycemic drugs
CPT/HCPCS: 71010; 80048; 80053; 80061; 80202; 81003; 82310; 82330; 82962; 83036; 83605; 83735; 84100; 84436; 84443; 84479; 85025; 85610; 85730; 87040; 88307; J0131; J0360; J0610; J0690; J1170; J1815; J1956; J2175; J2270; J2405; J3010; J3370; J3475; J3480; J7030; J7042; J7050; J7070